=== PATIENT | male | born 1945 | race Caucasian/White ===

== ENCOUNTER 2018-04-17 11:42 | Inpatient (IN) | payer OTHER ==
[~2018-04-17] VITALS: Ht 170.2 cm; Wt 119.6 kg
--- NOTE | 2018-04-17 12:23 | EMERGENCY ROOM VISIT NOTE ---
History Report prepared by Luis: Gato Bryant Under the Supervision of: Dr. Tk Miller M.D. First contact with patient: 12:03 Chief Complaint: OTHER COMPLAINT Stated Complaint: BOWEL INCONTINENCE AND DIARRHEA, R/O CVA History of Present Illness The patient is a 72 year old male with a past medical history of diabetes mellitus and schizoaffective disorder who presents to the ED with a cc of constant dizziness that started yesterday morning. The patient notes that he did not recognize the symptoms until his speech slowed and he had trouble finding words. He describes the dizziness as light headedness, but not room- spinning. The patient notes he takes 5mg of Aspirin daily. The guards that brought that patient here also notes that there is no outbreaks at the skilled nursing. Positive for diarrhea. Negative for numbness, tingling, musculoskeletal problems , abdominal pain, changes in diet, abx use, and missing any medications. Source of History: patient Onset: Yesterday morning Position: head (dizziness) Timing: constant Associated Symptoms: + diarrhea, No abdominal pain, No numbness Review of Systems See HPI for pertinent positives and negatives. A total of ten systems were reviewed and were otherwise negative. Past Medical & Surgical Medical Problems: (1) Diabetes (2) Diabetes mellitus (3) Dysarthria (4) NPH (normal pressure hydrocephalus) (5) Schizoaffective disorder Social History Smoking Status: Never Smoker Current/Historical Medications Scheduled Aspirin (Aspirin Ec), 81 MG PO QPM Atorvastatin (Lipitor), 40 MG PO QPM Calcium Carbonate-Vitamin D (Calcium + D), 2 TABS PO HS Levothyroxine Sodium (Levothyroxine Sodium), 50 MCG PO HS Metformin Hcl (Glucophage), 1,000 MG PO HS Mirtazapine (Remeron), 15 MG PO HS Risperidone (Risperdal), 2 MG PO HS Tamsulosin Hcl (Flomax), 0.4 MG PO HS Allergies Coded Allergies: No Known Allergies (Unverified , 04/17/18) Physical Exam Vital Signs Date Time Temp Pulse Resp B/P (MAP) Pulse Ox O2 Delivery O2 Flow Rate FiO2 04/17/18 14:00 87 18 119/83 93 Room Air 04/17/18 13:07 88 04/17/18 13:00 93 Room Air 04/17/18 11:45 36.6 97 18 146/108 93 Room Air Physical Exam GENERAL: Awake, alert, well-appearing, NAD, Obese and edentulous HENT: Normocephalic, atraumatic. EYES: Normal conjunctiva. Sclera non-icteric. PERRL. No anisocoria. NECK: Supple. No nuchal rigidity. FROM. RESPIRATORY: CTAB, no rhonchi, wheezing, crackles CARDIAC: RRR, no MRG ABDOMEN: Soft, NTND, BS+ MSK: No chest wall TTP, no LE edema NEURO: CN 2-12 intact, 5/5 upper and lower extremity strength, no dysmetria, no drift, good finger to nose, no sensory deficits. Finger count grossly normal. Questionable dysarthria, no saddle anesthesia. SKIN: No rash or jaundice noted. Medical Decision & Procedures ER Provider Diagnostic Interpretation: Radiology results as stated below per my review and radiologist interpretation: CHEST ONE VIEW PORTABLE CLINICAL HISTORY: 72 years-old Male presenting with EVALUATE WEAKNESS. TECHNIQUE: Portable upright AP view of the chest was obtained. COMPARISON: None. FINDINGS: Atherosclerosis of the aortic arch. Tortuosity of the descending thoracic aorta. Cardiac silhouette normal in size. No focal opacity. No large effusion or pneumothorax. Degenerative changes of the thoracic spine. Upper abdomen normal. IMPRESSION: 1. No acute cardiopulmonary disease. Electronically signed by: Jean Claude Matos M.D. 04/17/2018 1:18 PM Dictated Date/Time: 04/17/2018 1:17 PM HEAD WITHOUT CONTRAST (CT) CLINICAL HISTORY: 72 years-old Male presenting with EVALUATE WEAKNESS, bowel incontinence, clinical concern for stroke. TECHNIQUE: Multidetector CT imaging of the head was performed without the use of intravenous contrast. IV contrast: None. A dose lowering technique was used consistent with the principles of ALARA (as low as reasonably achievable). COMPARISON: 06/23/2014. CT DOSE (mGy.cm): The estimated cumulative dose is 772.45 mGycm. FINDINGS: Family Nurse Practitioner topogram: Unremarkable. Interval increase in ventricular prominence. There is relative proportional ventricular and sulcal prominence throughout with the exception of the vertex, where there is gyral crowding and sulcal effacement. This has slightly increased since 2013. The callosal angle is abnormally acute measuring 70 degrees (normal 100-120 degrees). Periventricular and subcortical white matter hypoattenuation, nonspecific but likely indicative of chronic small vessel ischemic change. No mass effect or midline shift. No hemorrhage or acute territorial infarct. No extra-axial fluid collection. Paranasal sinuses and mastoid air cells clear. Calvarium intact. IMPRESSION: 1. Findings suggest normal pressure hydrocephalus. This appearance has worsened since 2013. 2. Chronic small vessel ischemic change. 3. No other evidence of acute intracranial abnormality. Electronically signed by: Jean Claude Matos M.D. 04/17/2018 12:49 PM Dictated Date/Time: 04/17/2018 12:43 PM Laboratory Results 04/17/18 12:00 Red Blood Count 5.66, Mean Corpuscular Volume 85.3, Mean Corpuscular Hemoglobin 32.0, Mean Corpuscular Hemoglobin Concent 37.5, Mean Platelet Volume 10.9, Neutrophils (%) (Auto) 70.6, Lymphocytes (%) (Auto) 17.2, Monocytes (%) (Auto) 11.3, Eosinophils (%) (Auto) 0.5, Basophils (%) (Auto) 0.1, Neutrophils # (Auto ) 6.15, Lymphocytes # (Auto) 1.50, Monocytes # (Auto) 0.98, Eosinophils # (Auto ) 0.04, Basophils # (Auto) 0.01 04/17/18 12:00 Test 04/17/18 12:00 04/17/18 12:45 White Blood Count 8.71 K/uL (4.8-10.8) Red Blood Count 5.66 M/uL (4.7-6.1) Hemoglobin 18.1 g/dL (14.0-18.0) Hematocrit 48.3 % (42-52) Mean Corpuscular Volume 85.3 fL (80-100) Mean Corpuscular Hemoglobin 32.0 pg (25-34) Mean Corpuscular Hemoglobin Concent 37.5 g/dl (32-36) Platelet Count 126 K/uL (130-400) Mean Platelet Volume 10.9 fL (7.4-10.4) Neutrophils (%) (Auto) 70.6 % Lymphocytes (%) (Auto) 17.2 % Monocytes (%) (Auto) 11.3 % Eosinophils (%) (Auto) 0.5 % Basophils (%) (Auto) 0.1 % Neutrophils # (Auto) 6.15 K/uL (1.4-6.5) Lymphocytes # (Auto) 1.50 K/uL (1.2-3.4) Monocytes # (Auto) 0.98 K/uL (0.11-0.59) Eosinophils # (Auto) 0.04 K/uL (0-0.5) Basophils # (Auto) 0.01 K/uL (0-0.2) RDW Standard Deviation 42.1 fL (36.4-46.3) RDW Coefficient of Variation 13.5 % (11.5-14.5) Immature Granulocyte % (Auto) 0.3 % Immature Granulocyte # (Auto) 0.03 K/uL (0.00-0.02) Prothrombin Time 10.9 SECONDS (9.0-12.0) Prothromb Time International Ratio 1.0 (0.9-1.1) Activated Partial Thromboplast Time 28.2 SECONDS (21.0-31.0) Partial Thromboplastin Ratio 1.1 Anion Gap 11.0 mmol/L (3-11) Est Creatinine Clear Calc Drug Dose 70.4 ml/min Estimated GFR () 71.8 Estimated GFR (Non- 61.9 BUN/Creatinine Ratio 6.9 (10-20) Calcium Level 9.3 mg/dl (8.5-10.1) Magnesium Level 1.8 mg/dl (1.8-2.4) Total Bilirubin 1.1 mg/dl (0.2-1) Direct Bilirubin 0.3 mg/dl (0-0.2) Aspartate Amino Transf (AST/SGOT) 26 U/L (15-37) Alanine Aminotransferase (ALT/SGPT) 41 U/L (12-78) Alkaline Phosphatase 87 U/L (45-117) Troponin I < 0.015 ng/ml (0-0.045) Pro-B-Type Natriuretic Peptide 91 pg/ml (0-900) Total Protein 7.8 gm/dl (6.4-8.2) Albumin 3.8 gm/dl (3.4-5.0) Lipase 181 U/L (73-393) Thyroid Stimulating Hormone (TSH) 2.130 uIu/ml (0.300-4.500) Salicylates Level < 1.7 mg/dl (2.8-20) Acetaminophen Level < 2 ug/ml (10-30) Ethyl Alcohol mg/dL < 3.0 mg/dl (0-3) Laboratory results reviewed by me Medications Administered Medications (Trade) Dose Ordered Sig/Paulette Route Start Time Stop Time Status Last Admin Dose Admin Aspirin (Aspirin Chew) 324 mg NOW STAT PO 04/17/18 13:37 04/17/18 13:38 DC 04/17/18 13:59 324 MG ECG Per My Interpretation Indication: chest pain Rate (beats per minute): 90 Rhythm: normal sinus Findings: other (Normal axis and intervals, no STS changes, No TWI) ED Course 1214: The patient was evaluated in room C6. A complete history and physical exam was performed. 1341: Upon reexamination, the patient was resting in bed. I discussed the test results and treatment plan with him. The patient will be evaluated for further management by Laura Mark PA-C. Medical Decision Nursing notes reviewed. Ancillary studies and prior records reviewed. Differential diagnosis: Etiologies such as metabolic, infection, hypo/hyperglycemia, electrolyte abnormalities, cardiac sources, intracerebral event, toxicologic, neurologic, as well as others were entertained. Patient was seen and evaluated the bedside. Patient had been referred for dysarthria that had questionably resolved. The patient states that he has had some mild word finding difficulty and slurred speech. Patient is otherwise fairly well-appearing denies any focal numbness tingling or weakness otherwise. The patient denies any double vision. Patient has a nonfocal neurologic exam. The patient apparently has been having some bowel incontinence. He does relate that he is having loose stools. The patient has no saddle anesthesia and. No recent trauma. I do not believe the patient has any sort of spinal issue. Patient did have blood work completed, CT the brain. Patient's blood work fairly unremarkable. The patient was having some urinary retention's the patient did have a straight cath completed. The patient CT the brain does show questionable NPH which is apparently worsened since 2013. Again the patient denies any visual disturbances or headache. The patient denies any back pain. I believe this is more of an incidental worsening finding. I do not believe he requires an LP at this time. Given the patient's comorbidities risk factors as well as slurred speech I believe he would benefit from further evaluation and treatment especially given his poor follow-up as he is currently incarcerated. Patient was given a full dose aspirin and was admitted to the medicine service. Medication Reconcilliation Current Medication List: was personally reviewed by me Blood Pressure Screening Patient's blood pressure: Normal blood pressure Consults Time Called: [phone] Consulting Physician: Laura Cr PA-C Returned Call: [phone] Discussed the patient's case with Laura Cr . The patient will be evaluated for further treatment and disposition. Impression Primary Impression: TIA (transient ischemic attack) Additional Impression: Urinary retention Scribe Attestation The scribe's documentation has been prepared under my direction and personally reviewed by me in its entirety. I confirm that the note above accurately reflects all work, treatment, procedures, and medical decision making performed by me. Departure Information Dispostion Being Evaluated By Hospitalist Referrals No Doctor, Assigned (PCP) Forms HOME CARE DOCUMENTATION FORM, IMPORTANT VISIT INFORMATION, WORK / SCHOOL INSTRUCTIONS Patient Instructions My [facility] Health Problem Qualifiers
[2018-04-17 12:31] LABS: BASO % 0.1 %; BASO ABS # 0.01 K/uL (0-0.2); EOS % 0.5 %; EOS ABS # 0.04 K/uL (0-0.5); HEMATOCRIT 48.3 % (42-52); HEMOGLOBIN 18.1 g/dL (14.0-18.0); IG# 0.03 K/uL (0.00-0.02); LYMPH % 17.2 %; MEAN CELL VOLUME 85.3 fL (80-100); MEAN CORPUSCULAR HGB CONC 37.5 g/dl (32-36); MEAN PLATELET VOLUME 10.9 fL (7.4-10.4); MONO % 11.3 %; MONO ABS # 0.98 K/uL (0.11-0.59); NEUT % 70.6 %; NEUT ABS # 6.15 K/uL (1.4-6.5); PLATELET COUNT 126 K/uL (130-400); RED CELL DISTRIBUTION WIDTH CV 13.5 % (11.5-14.5); RED CELL DISTRIBUTION WIDTH SD 42.1 fL (36.4-46.3); WHITE BLOOD COUNT 8.71 K/uL (4.8-10.8)
[2018-04-17 12:42] LABS: PTT PATIENT 28.2 SECONDS (21.0-31.0)
[2018-04-17 12:47] LABS: ALBUMIN 3.8 gm/dl (3.4-5.0); ALKALINE PHOSPHATASE 87 U/L (45-117); ALT/SGPT 41 U/L (12-78); AST/SGOT 26 U/L (15-37); BLOOD UREA NITROGEN 8 mg/dl (7-18); CALCIUM 9.3 mg/dl (8.5-10.1); CARBON DIOXIDE 21 mmol/L (21-32); CREATININE 1.17 mg/dl (0.60-1.40); GLUCOSE 261 mg/dl (70-99); LIPASE 181 U/L (73-393); POTASSIUM 3.5 mmol/L (3.5-5.1); SODIUM 133 mmol/L (136-145); TOTAL PROTEIN 7.8 gm/dl (6.4-8.2)
--- NOTE | 2018-04-17 12:50 | DIAGNOSTIC IMAGING REPORT ---
HEAD WITHOUT CONTRAST (CT) CLINICAL HISTORY: 72 years-old Male presenting with EVALUATE WEAKNESS, bowel incontinence, clinical concern for stroke. TECHNIQUE: Multidetector CT imaging of the head was performed without the use of intravenous contrast. IV contrast: None. A dose lowering technique was used consistent with the principles of ALARA (as low as reasonably achievable). COMPARISON: 06/23/2014. CT DOSE (mGy.cm): The estimated cumulative dose is 772.45 mGycm. FINDINGS: Interlocking Installer topogram: Unremarkable. Interval increase in ventricular prominence. There is relative proportional ventricular and sulcal prominence throughout with the exception of the vertex, where there is gyral crowding and sulcal effacement. This has slightly increased since 2013. The callosal angle is abnormally acute measuring 70 degrees (normal 100-120 degrees). Periventricular and subcortical white matter hypoattenuation, nonspecific but likely indicative of chronic small vessel ischemic change. No mass effect or midline shift. No hemorrhage or acute territorial infarct. No extra-axial fluid collection. Paranasal sinuses and mastoid air cells clear. Calvarium intact. IMPRESSION: 1. Findings suggest normal pressure hydrocephalus. This appearance has worsened since 2013. 2. Chronic small vessel ischemic change. 3. No other evidence of acute intracranial abnormality. Electronically signed by: Jean Claude Matos M.D. 04/17/2018 12:49 PM Dictated Date/Time: 04/17/2018 12:43 PM
--- NOTE | 2018-04-17 13:19 | DIAGNOSTIC IMAGING REPORT ---
CHEST ONE VIEW PORTABLE CLINICAL HISTORY: 72 years-old Male presenting with EVALUATE WEAKNESS. TECHNIQUE: Portable upright AP view of the chest was obtained. COMPARISON: None. FINDINGS: Atherosclerosis of the aortic arch. Tortuosity of the descending thoracic aorta. Cardiac silhouette normal in size. No focal opacity. No large effusion or pneumothorax. Degenerative changes of the thoracic spine. Upper abdomen normal. IMPRESSION: 1. No acute cardiopulmonary disease. Electronically signed by: Jean Claude Matos M.D. 04/17/2018 1:18 PM Dictated Date/Time: 04/17/2018 1:17 PM
[2018-04-17] MEDS ORDERED: ASPIRIN 324 MG CHEW PO STA (13:37)
[2018-04-17] MEDS ORDERED: ASPI81TA28 PO (14:29)
[2018-04-17] MEDS ORDERED: METF-384 PO (14:29)
[2018-04-17] MEDS ORDERED: CALC600T9 PO (14:29)
[2018-04-17] MEDS ORDERED: LEVO50TA6 PO (14:29)
[2018-04-17] MEDS ORDERED: ATOR-24 PO (14:29)
[2018-04-17] MEDS ORDERED: RISP2TAB22 PO (14:29)
[2018-04-17] MEDS ORDERED: MIRT15TA3 PO (14:29)
[2018-04-17] MEDS ORDERED: TAMS0.4C38 PO (14:29)
--- NOTE | 2018-04-17 15:09 | History and Physical ---
History & Physical Date & Time of Service: Apr 17, 2018 at 14:59 Chief Complaint: Bowel Incontinence And Diarrhea, R/O Cva Primary Care Physician: No Doctor, Assigned History of Present Illness Source: patient Is a 72-year-old male with significant past medical history of diabetes and hypothyroidism apparently was brought in from [facility] with a history of dizziness and dysarthria that happened yesterday. Initially he complains to have diarrhea for the last 2 days without any other symptoms. When asking question he mentioned that he did have some dizziness and dysarthria which lasted for half an hour yesterday and he was brought in to the emergency room today to rule out any stroke. He denies any symptoms except dysarthria which has resolved, denies any visual problem, any headache or pain in the neck, any numbness or tingling in the extremities, any weakness in any parts of the body and any facial asymmetry. He complains to have ongoing diarrhea for the last 2 days that he is already about but denies any incontinence of urine or any frequency and/or burning pain. No chest pain shortness of breath or palpitation and denies any abdominal pain nausea and/or vomiting. In the ER his blood work came out to be unremarkable but he has noted to have normal pressure hydrocephalus on CAT scan from that point he was admitted to telemetry unit. Past Medical/Surgical History Medical Problems: (1) Diabetes (2) Diabetes mellitus (3) Dysarthria (4) NPH (normal pressure hydrocephalus) (5) Schizoaffective disorder (6) Suicide attempt by hanging (7) Suicide attempt by hanging Social History Smoking Status: Never Smoker Smokeless Tobacco Use: No Alcohol Use: none Drug Use: none Housing status: other (Lives in [facility]) Allergies Coded Allergies: No Known Allergies (Unverified , 04/17/18) Home Medications Scheduled Aspirin (Aspirin Ec), 81 MG PO QPM Atorvastatin (Lipitor), 40 MG PO QPM Calcium Carbonate-Vitamin D (Calcium + D), 2 TABS PO HS Levothyroxine Sodium (Levothyroxine Sodium), 50 MCG PO HS Metformin Hcl (Glucophage), 1,000 MG PO HS Mirtazapine (Remeron), 15 MG PO HS Risperidone (Risperdal), 2 MG PO HS Tamsulosin Hcl (Flomax), 0.4 MG PO HS Review of Systems Constitutional: + problem reported (Dizziness and Dysarthria) Neurologic: + problem reported (Dizziness and Dysarthria) Psychiatric: + anxiety Physical Exam Vital Signs Date Time Temp Pulse Resp B/P (MAP) Pulse Ox O2 Delivery O2 Flow Rate FiO2 04/17/18 14:00 87 18 119/83 93 Room Air 04/17/18 13:07 88 04/17/18 13:00 93 Room Air 04/17/18 11:45 36.6 97 18 146/108 93 Room Air General Appearance: no apparent distress Head: normocephalic Eyes: normal inspection ENT: normal ENT inspection Neck: supple, no adenopathy, thyroid normal, no carotid bruits Respiratory/Chest: chest non-tender, lungs clear, normal breath sounds, no respiratory distress Cardiovascular: regular rate, rhythm, no edema, no gallop, no murmur Abdomen/GI: normal bowel sounds Back: normal inspection Extremities/Musculoskelatal: normal inspection Neurologic/Psych: atmospheric technician II-XII nml as tested, no motor/sensory deficits, alert, normal mood/affect, normal reflexes, oriented x 3 Skin: normal color Diagnostics Laboratory Results Results Past 24 Hours Test 04/17/18 12:00 04/17/18 12:45 Range/Units White Blood Count 8.71 4.8-10.8 K/uL Red Blood Count 5.66 4.7-6.1 M/uL Hemoglobin 18.1 14.0-18.0 g/dL Hematocrit 48.3 42-52 % Mean Corpuscular Volume 85.3 80-100 fL Mean Corpuscular Hemoglobin 32.0 25-34 pg Mean Corpuscular Hemoglobin Concent 37.5 32-36 g/dl Platelet Count 126 130-400 K/uL Mean Platelet Volume 10.9 7.4-10.4 fL Neutrophils (%) (Auto) 70.6 % Lymphocytes (%) (Auto) 17.2 % Monocytes (%) (Auto) 11.3 % Eosinophils (%) (Auto) 0.5 % Basophils (%) (Auto) 0.1 % Neutrophils # (Auto) 6.15 1.4-6.5 K/uL Lymphocytes # (Auto) 1.50 1.2-3.4 K/uL Monocytes # (Auto) 0.98 0.11-0.59 K/uL Eosinophils # (Auto) 0.04 0-0.5 K/uL Basophils # (Auto) 0.01 0-0.2 K/uL RDW Standard Deviation 42.1 36.4-46.3 fL RDW Coefficient of Variation 13.5 11.5-14.5 % Immature Granulocyte % (Auto) 0.3 % Immature Granulocyte # (Auto) 0.03 0.00-0.02 K/uL Prothrombin Time 10.9 9.0-12.0 SECONDS Prothromb Time International Ratio 1.0 0.9-1.1 Activated Partial Thromboplast Time 28.2 21.0-31.0 SECONDS Partial Thromboplastin Ratio 1.1 Sodium Level 133 136-145 mmol/L Potassium Level 3.5 3.5-5.1 mmol/L Chloride Level 100 98-107 mmol/L Carbon Dioxide Level 21 21-32 mmol/L Anion Gap 11.0 3-11 mmol/L Blood Urea Nitrogen 8 7-18 mg/dl Creatinine 1.17 0.60-1.40 mg/dl Est Creatinine Clear Calc Drug Dose 70.4 ml/min Estimated GFR () 71.8 Estimated GFR (Non- 61.9 BUN/Creatinine Ratio 6.9 10-20 Random Glucose 261 70-99 mg/dl Calcium Level 9.3 8.5-10.1 mg/dl Magnesium Level 1.8 1.8-2.4 mg/dl Total Bilirubin 1.1 0.2-1 mg/dl Direct Bilirubin 0.3 0-0.2 mg/dl Aspartate Amino Transf (AST/SGOT) 26 15-37 U/L Alanine Aminotransferase (ALT/SGPT) 41 12-78 U/L Alkaline Phosphatase 87 45-117 U/L Troponin I < 0.015 0-0.045 ng/ml Pro-B-Type Natriuretic Peptide 91 0-900 pg/ml Total Protein 7.8 6.4-8.2 gm/dl Albumin 3.8 3.4-5.0 gm/dl Lipase 181 73-393 U/L Thyroid Stimulating Hormone (TSH) 2.130 0.300-4.500 uIu/ml Salicylates Level < 1.7 2.8-20 mg/dl Acetaminophen Level < 2 10-30 ug/ml Ethyl Alcohol mg/dL < 3.0 0-3 mg/dl Diagnostic Radiology CT of the Head-NPH worsening Impression Assessment and Plan Dysarthria with dizziness-Resolved Likely secondary to TIA We will get 10 MRI of the brain combo, CTA, echo and carotid Will admit in telemetry unit Neuro-observation Normal pressure hydrocephalus As per the CAT scan it is worsening we will ask for a neurology evaluation Acute diarrhea Check for stool C. difficile and culture Can have Imodium if those are negative We will give some IV fluid with electrolytes Diabetes on oral medication Hold metformin right now We will put him on sliding scale insulin coverage Check hemoglobin A1c Schizoaffective disorder No acute symptoms We will continue prior medications DVT prophylaxis Subcu heparin CODE STATUS:; Full In my clinical judgment the beneficially meets criteria as per CMS for 2 midnight stay in the hospital Resuscitation Status VTE Prophylaxis Will order VTE Prophylaxis: Yes
[2018-04-17] MEDS ORDERED: OPTIRAY 320 IV PRN (15:45)
[2018-04-17 16:24] VITALS: BP 139/106; PULSE 84; TEMP 37.3; O2SAT 97; Ht 170.2 cm; Wt 119.6 kg
[2018-04-17] MEDS ORDERED: GADAVIST IV PRN (18:30)
--- NOTE | 2018-04-17 18:53 | DIAGNOSTIC IMAGING REPORT ---
CT ANGIOGRAM OF THE BRAIN; CT ANGIOGRAM OF THE NECK CLINICAL HISTORY: Weakness. Stroke like symptoms. COMPARISON STUDY: Unenhanced CT of the brain dated 04/17/2018. CT angiogram of the neck dated 06/23/2014. TECHNIQUE: Following the IV administration of 94 of Optiray 320, CT angiogram of the head and neck was performed from the aortic arch to the vertex. Images are reviewed in the axial, sagittal, and coronal planes. 3-D MIPS images are created and assessed. IV contrast was administered without complication. All measurements were calculated based on NASCET criteria. A dose lowering technique was utilized adhering to the principles of ALARA. CT DOSE: 630.95 mGy.cm FINDINGS: Brain parenchyma: There are age-related involutional changes noting mild subcortical and periventricular microangiopathic disease. There is no hemorrhage, mass effect, or evidence of acute territorial ischemia by CT criteria. There is no evidence of enhancing mass lesion on the angiogram phase images. The ventricles, sulci, and cisterns are prominent secondary to involutional change. Herman-white matter differentiation is preserved. No extra-axial fluid collection is seen. Thoracic aorta: There is mild atherosclerotic calcification of the thoracic aorta. Visualized portions of the thoracic aorta are normal in caliber. The aortic arch demonstrates standard 3-vessel anatomy. Right carotid arterial system: The right common carotid artery is widely patent, as are the right internal and external carotid arteries. Atherosclerotic calcification is noted in the carotid bulb. Left carotid arterial system: The left common carotid artery is widely patent, as are the left internal and external carotid arteries. Atherosclerotic calcification is noted in the carotid bulb. Vertebral arteries: The vertebral arteries are widely patent. The right vertebral artery is dominant. Subclavian arteries: Widely patent bilaterally. Intracranial vasculature: There is atherosclerotic calcification of the cavernous carotid arteries. There is a large right posterior communicating artery. The internal carotid arteries are patent at the skull base, as are the anterior and middle cerebral arteries bilaterally. The vertebrobasilar system and posterior cerebral arteries are widely patent. The right vertebral artery is dominant. There is no aneurysm, high-grade stenosis, or focal vessel cut off seen throughout the intracranial circulation. Jugular veins: Widely patent bilaterally. Dural sinuses: Patent. Lung apices: Partially visualized upper lobe lung parenchyma appears clear. Soft tissues: The visualized pharyngeal soft tissues are normal in appearance noting angiographic phase technique. The oropharyngeal airway appears widely patent. The salivary and thyroid glands are normal in appearance. No cervical lymphadenopathy is seen. Skeletal structures: The skeletal structures are osteopenic. The calvarium appears maintained. The cervical spine appears intact noting multilevel spondylosis. Sinuses and mastoids: Trace mucosal thickening is seen in the maxillary antra. The remaining paranasal sinuses are clear. The mastoid air cells are well pneumatized. IMPRESSION: 1. There is no hemorrhage, mass effect, or evidence of acute territorial ischemia by CT criteria. 2. Unremarkable CT angiogram of the brain. 3. Unremarkable CT angiogram of the neck. Electronically signed by: Cody Hernandez M.D. 04/17/2018 6:52 PM Dictated Date/Time: 04/17/2018 6:42 PM
--- NOTE | 2018-04-17 19:20 | DIAGNOSTIC IMAGING REPORT ---
MRI OF THE BRAIN WITHOUT AND WITH IV CONTRAST CLINICAL HISTORY: Slurred speech. Weakness. Evaluate for stroke. COMPARISON STUDY: Head CT April 17, 2018. TECHNIQUE: Utilizing a 1.5 Alexandra magnet and dedicated coil, multiplanar, multiecho imaging of the brain was performed pre and postcontrast administration. IV administration of 11.5 mL of Gadavist contrast was uneventful. FINDINGS: There are no foci of restricted diffusion to suggest acute infarct. No acute intracranial hemorrhage, midline shift or mass effect is present. Moderate atrophy is noted. This accounts for ventricular dilatation. The basilar cisterns are patent. There are no extra-axial collections. Flow-voids for the major intracranial vessels are present. No intracranial mass or pathologic enhancement. White matter T2 hyperintense foci suggest moderate small vessel disease. Calvarial signal is maintained. Orbits and sinuses are unremarkable. IMPRESSION: 1. No acute intracranial findings. 2. No intracranial mass or pathologic enhancement. 3. Moderate atrophy and small vessel disease. Electronically signed by: Matt Thacker M.D. 04/17/2018 7:19 PM Dictated Date/Time: 04/17/2018 7:02 PM
[2018-04-17] MEDS: NSS + 20MEQ KCL 1000ML 1,000 ML IV SCH (19:43)
[2018-04-17] MEDS ORDERED: PNEUMOCOCCAL ADMINISTRATION CHARGE ONE (19:45)
[2018-04-17] MEDS: TAMSULOSIN HCL 0.4 MG CAP PO SCH (19:45)
[2018-04-17] MEDS: CALCIUM 600MG + VIT D 400 IU TAB PO SCH (19:45)
[2018-04-17] MEDS ORDERED: PNEUMOCOCCAL POLYSACCHARIDES 25 MCG/0.5 ML VIAL/SYR IM. ONE (19:45)
[2018-04-17] MEDS: MIRTAZAPINE TAB 15 MG TAB PO SCH (19:46)
[2018-04-17] MEDS: ATORVASTATIN 40 MG TAB PO SCH (19:46)
[2018-04-17] MEDS: RISPERIDONE 2 MG TAB PO SCH (19:46)
[2018-04-17 20:00] VITALS: O2SAT 97
[2018-04-17 21:04] VITALS: BP 162/75; PULSE 61; TEMP 37.1; O2SAT 93
[2018-04-17] MEDS: HEPARIN SOD 5000 UNIT/0.5 ML CARP SQ SCH (22:15)
[2018-04-18] MEDS ORDERED: LOPERAMIDE HCL 2 MG CAP PO STA (00:26)
[2018-04-18] MEDS ORDERED: LOPERAMIDE HCL 2 MG CAP PO PRN ×2 (00:30→10:00)
[2018-04-18 03:46] VITALS: BP 122/94; PULSE 101; TEMP 37.4; O2SAT 99
[2018-04-18] MEDS: NSS + 20MEQ KCL 1000ML 1,000 ML IV SCH ×2 (05:00→15:03)
[2018-04-18] MEDS: LEVOTHYROXINE 50 MCG TAB PO SCH (05:00)
[2018-04-18] MEDS: HEPARIN SOD 5000 UNIT/0.5 ML CARP SQ SCH ×3 (05:01→20:59)
[2018-04-18 05:57] LABS: BASO % 0.1 %; BASO ABS # 0.01 K/uL (0-0.2); EOS % 0.3 %; EOS ABS # 0.02 K/uL (0-0.5); HEMATOCRIT 45.2 % (42-52); HEMOGLOBIN 16.1 g/dL (14.0-18.0); IG# 0.02 K/uL (0.00-0.02); LYMPH % 16.8 %; MEAN CELL VOLUME 85.8 fL (80-100); MEAN CORPUSCULAR HEMOGLOBIN 30.6 pg (25-34); MEAN CORPUSCULAR HGB CONC 35.6 g/dl (32-36); MEAN PLATELET VOLUME 10.8 fL (7.4-10.4); MONO % 13.3 %; MONO ABS # 0.95 K/uL (0.11-0.59); NEUT % 69.2 %; NEUT ABS # 4.95 K/uL (1.4-6.5); PLATELET COUNT 113 K/uL (130-400); RED CELL DISTRIBUTION WIDTH CV 13.5 % (11.5-14.5); RED CELL DISTRIBUTION WIDTH SD 42.1 fL (36.4-46.3); WHITE BLOOD COUNT 7.15 K/uL (4.8-10.8)
[2018-04-18 06:25] LABS: CALCIUM 9.2 mg/dl (8.5-10.1); CREATININE 1.1 mg/dl (0.60-1.40); POTASSIUM 3.6 mmol/L (3.5-5.1)
[2018-04-18 08:00] VITALS: BP 135/80; PULSE 95; TEMP 37.2; O2SAT 92
[2018-04-18 11:33] VITALS: BP 131/74; PULSE 82; TEMP 36.8; O2SAT 90
--- NOTE | 2018-04-18 12:01 | ECHOCARDIOGRAM REPORT ---
*NOTICE TO RECEIVING REPUBLICAN AGENCY This information is strictly Confidential and protected under [place] law. [place] law prohibits you from making any further disclosure of this information unless further disclosure is expressly permitted by the written consent of the person to whom it pertains or is authorized by law. A general authorization for the release of medical or other information is not sufficient for this purpose. Hospital accepts no responsibility if the information is made available to any other person, INCLUDING THE PATIENT. Interpretation Summary * Name: MALACHI FREY [id number] Study Date: 04/18/2018 09:46 AM BP: 122/94 mmHg * Patient Location: C.2E\S\E207\S\1 HR: 101 * : 1945 (M/d/y) Gender: Male Height: 67 in * Age: 72 yrs Ethnicity: CA Weight: 262 lb * Ordering Physician: Moni Lees * Referring Physician: No Doctor, Assigned * Performed By: Mayte Greene RDCS * * Reason For Study: Syncope * BSA: 2.3 m2 * -- Conclusions -- * The left ventricle is normal in size. * There is borderline concentric left ventricular hypertrophy. * The left ventricular wall motion is normal. * Left ventricular systolic function is normal. * Ejection Fraction = 60-65%. * Grade I diastolic dysfunction, (abnormal relaxation pattern). * There is mild to moderate calcification aortic valve leaflets without stenosis * Trace aortic regurgitation. * Borderline aortic root dilatation. Procedure Details * A complete two-dimensional transthoracic echocardiogram was performed (2D, M-mode, Doppler and color flow Doppler). * A contrast injection of Definity was performed to improve assessment of LV function. * Contrast was injected into an intravenous site in the right arm. * One vial of Definity ultrasound contrast was diluted in normal saline to a total volume of 10 ml. A total of '1' ml of solution was administered during imaging. * Lot # [id number] of Definity utilized for procedure. * Expiration date MAR 26. * The attending nurse who injected the contrast agent was Benjamin Wilson RN. Left Ventricle * The left ventricle is normal in size. * There is borderline concentric left ventricular hypertrophy. * The basal septum is thickened and angulated consistent with sigmoid septum. * Ejection Fraction = 60-65%. * Left ventricular systolic function is normal. * The left ventricular wall motion is normal. Right Ventricle * The right ventricle is normal in size and function. Atria * The left atrial size is normal. * Right atrial size is normal. * No ASD detected; PFO is not assessed. Mitral Valve * The mitral valve is grossly normal. * There is no mitral valve stenosis. * There is trace mitral regurgitation. Tricuspid Valve * The tricuspid valve is not well visualized, but is grossly normal. * There is no tricuspid stenosis. * There is trace tricuspid regurgitation. Aortic Valve * The aortic valve is trileaflet. * There is mild to moderate calcification aortic valve leaflets without stenosis * Trace aortic regurgitation. Pulmonic Valve * The pulmonic valve is not well visualized. Great Vessels * Borderline aortic root dilatation. Pericardium/Pleural * There is no pericardial effusion. Great Vessels * Normal inferior vena cava diameter and respiratory variation suggests normal central venous pressure. Left Ventricular Diastolic Function * Grade I diastolic dysfunction, (abnormal relaxation pattern). MMode 2D Measurements and Calculations IVSd 0.92 cm LVIDd 3.5 cm LVIDs 2.3 cm LVPWd 1.1 cm IVS/LVPW 0.80 FS 33.4 % EDV(Teich) 51.1 ml ESV(Teich) 18.9 ml EF(Teich) 63.1 % EDV(cubed) 43.2 ml ESV(cubed) 12.8 ml EF(cubed) 70.4 % LV mass(C)d 108.8 grams LV mass(C)dI 48.0 grams/m\S\2 SV(Teich) 32.3 ml SI(Teich) 14.2 ml/m\S\2 SV(cubed) 30.4 ml SI(cubed) 13.4 ml/m\S\2 Ao root diam 3.9 cm Ao root area 12.2 cm\S\2 ACS 2.1 cm LA dimension 3.1 cm asc Aorta Diam 3.3 cm LA/Ao 0.78 LVOT diam 2.0 cm LVOT area 3.2 cm\S\2 LVAd ap4 23.8 cm\S\2 LVLd ap4 7.1 cm EDV(MOD-sp4) 63.9 ml EDV(sp4-el) 67.4 ml LVAs ap4 12.8 cm\S\2 LVLs ap4 5.5 cm ESV(MOD-sp4) 24.1 ml ESV(sp4-el) 25.4 ml EF(MOD-sp4) 62.4 % EF(sp4-el) 62.3 % LVAd ap2 24.9 cm\S\2 LVLd ap2 7.6 cm EDV(MOD-sp2) 66.4 ml EDV(sp2-el) 69.8 ml LVAs ap2 12.8 cm\S\2 LVLs ap2 5.8 cm ESV(MOD-sp2) 25.2 ml ESV(sp2-el) 24.2 ml EF(MOD-sp2) 62.1 % EF(sp2-el) 65.3 % LVLd %diff 6.0 % EDV(MOD-bp) 66.0 ml LVLs %diff 5.3 % ESV(MOD-bp) 24.8 ml EF(MOD-bp) 62.5 % SV(MOD-sp4) 39.9 ml SI(MOD-sp4) 17.6 ml/m\S\2 SV(MOD-sp2) 41.2 ml SI(MOD-sp2) 18.2 ml/m\S\2 SV(MOD-bp) 41.2 ml SI(MOD-bp) 18.2 ml/m\S\2 SV(sp4-el) 42.0 ml SI(sp4-el) 18.5 ml/m\S\2 SV(sp2-el) 45.6 ml SI(sp2-el) 20.1 ml/m\S\2 Doppler Measurements and Calculations MV E max jaylen 55.3 cm/sec MV A max jaylen 77.0 cm/sec MV E/A 0.72 MV dec time 0.27 sec Ao V2 max 171.8 cm/sec Ao max PG 11.8 mmHg Ao max PG (full) 7.3 mmHg YA(V,A) 2.0 cm\S\2 YA(V,D) 2.0 cm\S\2 AI max jaylen 321.3 cm/sec AI max PG 41.3 mmHg AI dec slope 226.0 cm/sec\S\2 AI P1/2t 416.5 msec LV V1 max PG 4.5 mmHg LV V1 max 106.3 cm/sec PA V2 max 87.1 cm/sec PA max PG 3.0 mmHg PA acc slope 352.8 cm/sec\S\2 PA acc time 0.16 sec PI max jaylen 132.0 cm/sec PI max PG 7.0 mmHg PI dec slope 91.3 cm/sec\S\2 PI P1/2t 423.6 msec TR max jaylen 129.4 cm/sec PA pr(Accel) 8.2 mmHg
--- NOTE | 2018-04-18 12:14 | Progress Note ---
Internal Med Progress Note Date of Service: Apr 18, 2018. Provider Documentation: SUBJECTIVE: The patient was seen and examined in telemetry unit Was admitted yesterday with the symptoms of dysarthria and dizziness that happened day before yesterday No neuro deficit on admission and so far no imaging studies that is positive for any stroke Complains of diarrhea but no other symptoms OBJECTIVE: Vital Signs-as noted below Exam: General-no apparent distress Eyes-normal ENT-normal Neck-supple Lungs-clear to auscultate bilaterally Heart-regular, no murmur Abdomen-benign, minimally distended, soft, nontender Extremities-trace edema bilaterally Neuro-alert, awake and oriented 3 No focal sensory and motor deficit appreciated Lab data as noted below. ASSESSMENT & PLAN: Dysarthria with dizziness-Resolved Likely secondary to TIA We will get 10 MRI of the brain combo, CTA, echo and carotid Will admit in telemetry unit Neuro-observation MRI combo of the head, CTA of the head and neck and echocardiogram unremarkable No recurrence of the symptoms and no neuro deficit on examination Awake neurologist input Normal pressure hydrocephalus As per the CAT scan it is worsening we will ask for a neurology evaluation-awaiting Acute diarrhea Check for stool C. difficile and culture Can have Imodium if those are negative We will give some IV fluid with electrolytes Stool tests are negative for any C. difficile, culture pending We will start Imodium as needed Diabetes on oral medication Hold metformin right now We will put him on sliding scale insulin coverage Check hemoglobin [id number] at 10 Schizoaffective disorder No acute symptoms We will continue prior medications DVT prophylaxis Subcu heparin CODE STATUS:; Full DISPOSITION Likely discharge in a day or 2 Vital Signs: Date Time Temp Pulse Resp B/P (MAP) Pulse Ox O2 Delivery O2 Flow Rate FiO2 04/18/18 11:33 36.8 82 20 131/74 (93) 90 Room Air 04/18/18 08:00 37.2 95 20 135/80 (98) 92 Room Air 04/18/18 08:00 Room Air 04/18/18 03:46 37.4 101 18 122/94 (103) 99 Room Air 04/17/18 21:04 37.1 61 18 162/75 (104) 93 Room Air 04/17/18 20:00 97 Room Air 04/17/18 16:24 37.3 84 16 139/106 97 Room Air 04/17/18 16:02 88 19 128/88 94 04/17/18 14:00 87 18 119/83 93 Room Air 04/17/18 13:07 88 04/17/18 13:00 93 Room Air Lab Results: Results Past 24 Hours Test 04/17/18 12:45 04/17/18 16:24 04/17/18 20:40 04/18/18 05:41 Range/Units Ethyl Alcohol mg/dL < 3.0 0-3 mg/dl Bedside Glucose 206 215 70-99 mg/dl White Blood Count 7.15 4.8-10.8 K/uL Red Blood Count 5.27 4.7-6.1 M/uL Hemoglobin 16.1 14.0-18.0 g/dL Hematocrit 45.2 42-52 % Mean Corpuscular Volume 85.8 80-100 fL Mean Corpuscular Hemoglobin 30.6 25-34 pg Mean Corpuscular Hemoglobin Concent 35.6 32-36 g/dl Platelet Count 113 130-400 K/uL Mean Platelet Volume 10.8 7.4-10.4 fL Neutrophils (%) (Auto) 69.2 % Lymphocytes (%) (Auto) 16.8 % Monocytes (%) (Auto) 13.3 % Eosinophils (%) (Auto) 0.3 % Basophils (%) (Auto) 0.1 % Neutrophils # (Auto) 4.95 1.4-6.5 K/uL Lymphocytes # (Auto) 1.20 1.2-3.4 K/uL Monocytes # (Auto) 0.95 0.11-0.59 K/uL Eosinophils # (Auto) 0.02 0-0.5 K/uL Basophils # (Auto) 0.01 0-0.2 K/uL RDW Standard Deviation 42.1 36.4-46.3 fL RDW Coefficient of Variation 13.5 11.5-14.5 % Immature Granulocyte % (Auto) 0.3 % Immature Granulocyte # (Auto) 0.02 0.00-0.02 K/uL Sodium Level 134 136-145 mmol/L Potassium Level 3.6 3.5-5.1 mmol/L Chloride Level 101 98-107 mmol/L Carbon Dioxide Level 25 21-32 mmol/L Anion Gap 8.0 3-11 mmol/L Blood Urea Nitrogen 8 7-18 mg/dl Creatinine 1.10 0.60-1.40 mg/dl Est Creatinine Clear Calc Drug Dose 74.6 ml/min Estimated GFR () 77.3 Estimated GFR (Non- 66.7 BUN/Creatinine Ratio 7.3 10-20 Random Glucose 204 70-99 mg/dl Estimated Average Glucose 240 mg/dl Hemoglobin A1c 10.0 4.5-5.6 % Calcium Level 9.2 8.5-10.1 mg/dl Vitamin B12 Level 256 211-911 pg/mL Folate 12.98 >5.38 ng/mL Test 04/18/18 07:30 04/18/18 11:24 Range/Units Bedside Glucose 235 220 70-99 mg/dl Microbiology Results 04/17/18 C.difficile Toxin B Gene (PCR) - Final, Complete No C. difficile toxin B gene detected 04/17/18 Shiga Toxin Test, Received Pending 04/17/18 Stool Culture, Received Pending
[2018-04-18 15:52] VITALS: BP 143/79; PULSE 80; TEMP 37.1; O2SAT 93
--- NOTE | 2018-04-18 17:23 | PROGRESS NOTE ---
DATE: 04/18/2018 CONSULTATION FOR: Dr. Lees. HISTORY OF PRESENT ILLNESS: Ion is a 72 years old, is an inmate at [facility] and has been there for over 10 years. He has a long history of diabetes, hypothyroidism, schizoaffective disorder, has had a suicide attempt by hanging in the past and was admitted for evaluation of an event that happened actually 2 days ago during which he, after an episode of diarrhea for 2 days, developed some vague lightheadedness, dysequilibrium and problems with word finding, which lasted about half an hour and he was then brought into the Emergency Room yesterday for assessment regarding a possible stroke given those symptoms had cleared. According to him, he was slightly vertiginous, had some problems with walking, knew what he wanted to say, but could not formulate the words and denies any actual slurring of his speech, but did admit that his gait was a little sloppy at this time. He denied any headaches, numbness, tingling, visual disturbances, nausea, vomiting true vertigo, hearing loss, tinnitus, etc. PAST MEDICAL HISTORY: Reveals diabetes, the schizoaffective disorder, suicide attempt by hanging. HOME MEDICATIONS: Included aspirin, atorvastatin, calcium carbonate, levothyroxine, metformin, Remeron, Risperdal, and tamsulosin. ALLERGIES: He has allergies to no medications. SOCIAL HISTORY: Reveals him to be an inmate. He does not consume ethanol or tobacco. FAMILY HISTORY: Noncontributory. REVIEW OF SYSTEMS: Reveals no systemic illnesses other than the 2 days of diarrhea without particular fever and the current illness with the transient episode of word finding, vertigo, gait abnormality and perhaps some slurring of his speech, although he denies it. At baseline, he claims he has definitely no trouble walking. He does not have trouble with urinary incontinence. He does not think he has any cognitive impairment and he denies any significant issues referable to head, eyes, ears, nose and throat, cardiovascular, pulmonary, gastrointestinal, genitourinary, neurologic, dermatologic, endocrinologic, hematologic systems. He also denies that he has diabetes which is clearly on the record so some of his denials need to be viewed with someone with some degree of suspicion. PHYSICAL EXAMINATION: VITAL SIGNS: Blood pressure was 119/83, pulse was 87, and respirations 18. GENERAL: He looked moderately over-nourished, he appeared to be in no distress. His speech was clear. HEENT: Examination is recorded as normal. There were no carotid bruits. LUNGS: Clear. HEART: Had a regular rhythm. No murmurs were appreciated. ABDOMEN: Soft, nontender. EXTREMITIES: Free of edema. He has good peripheral pulses. NEUROLOGIC: Today neurologically he is awake, alert, oriented, is probably a little vague as a historian in light of some of the above contradictions regarding his concept, so whether he has diabetes or not, but having been said, his speech is clear. Eye movements are normal. Facial motility and strength is normal. There is no loss of facial sensation. I do not see any nystagmus. He denies any hearing loss. There is no cerebellar dysmetria on rkwlvh-[id number], abkiv-qk-kmqck or dwzh-eg-hdhy testing. He can get up and walk in the room without any apraxia, ataxia, hesitation, spasticity. Reflexes are all 1+ symmetrical. Toes are downgoing. No Mike signs are seen. Strength testing is normal and sensation is intact to vibration, light touch and temperature. Imaging studies have shown what is felt to be worsening of "normal pressure hydrocephalus" compared to prior studies several years ago. MRI scan shows nothing acute. CTA showed no significant intracranial or extracranial vascular disease and echocardiogram today shows no cardiogenic source of emboli. Basic laboratory studies show normal white count with slightly decreased platelets. He has a slightly low sodium at 134, which has not been repeated, the glucose was 240. B12 level is normal. Folate level is normal and TSH level is 2.1. Cultures of the stool revealed no C. diff. Other culture results are pending, specifically for Shigella. I am not sure what happened with Mr. Colindres. Certainly, the history suggests a transient ischemic event, possibly left hemisphere if his recall of being unable to formulate words is correct. It is possible he had dysarthria and a little ataxia and he could have had a vertebrobasilar event. He certainly has risk factors. This happened on aspirin and normally in this situation, I recommend we add Plavix, but he does have some thrombocytopenia that needs to be evaluated and followed up before we go any further and at this point all I would do would be add an extra 81 mg aspirin a day. We certainly found no clear source for embolization. He is at risk for small vessel disease and occasionally small vessel events will present with transient ischemic events, but these are usually recurrent and he has had none since. His monitoring has not shown any atrial fibrillation, but this would be a point of the differential diagnosis particularly if he has paroxysmal atrial fibrillation and this could be something that will be evaluated on an outpatient basis. Neurology was actually consulted about the normal pressure hydrocephalus issue. This man clinically certainly does not have the entity and unfortunately there are numerous radiographic criteria for this syndrome that often are not applicable to the clinical situation and at this point I think the diagnosis can be eliminated from the chart. I will check back with him tomorrow, but at this point all I would do would be add an extra aspirin and follow the platelet count and consider an outpatient Zio patch at the [facility] to complete the evaluation. DEEJAY
[2018-04-18 19:05] VITALS: BP 104/53; PULSE 73; TEMP 37.1; O2SAT 91
[2018-04-18 20:00] VITALS: O2SAT 92
[2018-04-18] MEDS: TAMSULOSIN HCL 0.4 MG CAP PO SCH (20:59)
[2018-04-18] MEDS: ATORVASTATIN 40 MG TAB PO SCH (21:00)
[2018-04-18] MEDS ORDERED: ASPIRIN 81 MG ECTAB PO SCH (21:00)
[2018-04-18] MEDS: CALCIUM 600MG + VIT D 400 IU TAB PO SCH (21:01)
[2018-04-18] MEDS: MIRTAZAPINE TAB 15 MG TAB PO SCH (21:01)
[2018-04-18] MEDS: RISPERIDONE 2 MG TAB PO SCH (21:02)
[2018-04-19 00:09] VITALS: BP 137/76; PULSE 76; TEMP 36.6; O2SAT 92
[2018-04-19] MEDS: NSS + 20MEQ KCL 1000ML 1,000 ML IV SCH ×2 (00:40→08:11)
[2018-04-19 03:53] VITALS: BP 113/61; PULSE 72; TEMP 36.8; O2SAT 91
[2018-04-19] MEDS: LEVOTHYROXINE 50 MCG TAB PO SCH (05:41)
[2018-04-19] MEDS: HEPARIN SOD 5000 UNIT/0.5 ML CARP SQ SCH ×2 (05:46→14:00)
[2018-04-19 07:07] VITALS: BP 155/79; PULSE 69; TEMP 37.1; O2SAT 95
[2018-04-19] MEDS ORDERED: ASPIRIN 81 MG ECTAB PO SCH (09:00)
--- NOTE | 2018-04-19 10:06 | Progress Note ---
Internal Med Progress Note Date of Service: Apr 19, 2018. Provider Documentation: SUBJECTIVE: The patient was seen and examined in telemetry unit Was admitted yesterday with the symptoms of dysarthria and dizziness that happened day before yesterday No neuro deficit on admission and so far no imaging studies that is positive for any stroke Complains of diarrhea but no other symptoms 04/19: Denies any symptoms today Diarrhea is much better No more dysarthria and/or dizziness OBJECTIVE: Vital Signs-as noted below Exam: General-no apparent distress Eyes-normal ENT-normal Neck-supple Lungs-clear to auscultate bilaterally Heart-regular, no murmur Abdomen-benign, minimally distended, soft, nontender Extremities-trace edema bilaterally Neuro-alert, awake and oriented 3 No focal sensory and motor deficit appreciated Lab data as noted below. ASSESSMENT & PLAN: Dysarthria with dizziness-Resolved Likely secondary to TIA We will get 10 MRI of the brain combo, CTA, echo and carotid Will admit in telemetry unit Neuro-observation MRI combo of the head, CTA of the head and neck and echocardiogram unremarkable No recurrence of the symptoms and no neuro deficit on examination Await neurologist input Appreciate neurology input and recommendation Normal pressure hydrocephalus-has been ruled out As per the CAT scan it is worsening we will ask for a neurology evaluation-awaiting Does not have any NPH Acute diarrhea Check for stool C. difficile and culture Can have Imodium if those are negative We will give some IV fluid with electrolytes Stool tests are negative for any C. difficile, culture negative We will start Imodium as needed Diarrhea seems to be under control with Imodium Diabetes on oral medication Hold metformin right now We will put him on sliding scale insulin coverage Check hemoglobin [id number] at 10 Schizoaffective disorder No acute symptoms We will continue prior medications DVT prophylaxis Subcu heparin CODE STATUS:; Full DISPOSITION Discharged today with 162 mg aspirin Will have a Zio patch as an outpatient to rule out arrhythmias Vital Signs: Date Time Temp Pulse Resp B/P (MAP) Pulse Ox O2 Delivery O2 Flow Rate FiO2 04/19/18 07:07 37.1 69 19 155/79 (104) 95 Room Air 04/19/18 03:53 36.8 72 19 113/61 (78) 91 04/19/18 00:09 36.6 76 18 137/76 (96) 92 04/18/18 20:00 92 Room Air 04/18/18 19:05 37.1 73 18 104/53 (70) 91 Room Air 04/18/18 15:52 37.1 80 18 143/79 (100) 93 Room Air 04/18/18 11:33 36.8 82 20 131/74 (93) 90 Room Air Lab Results: Results Past 24 Hours Test 04/18/18 11:24 04/18/18 16:23 04/18/18 20:18 04/19/18 07:25 Range/Units Bedside Glucose 220 205 225 164 70-99 mg/dl
[2018-04-19 11:40] VITALS: BP 137/80; PULSE 73; TEMP 36.7; O2SAT 94
[2018-04-19 14:32] LABS: BASO % 0.8 %; BASO ABS # 0.04 K/uL (0-0.2); EOS % 2.2 %; EOS ABS # 0.11 K/uL (0-0.5); HEMATOCRIT 40.4 % (42-52); HEMOGLOBIN 14.4 g/dL (14.0-18.0); IG# 0.02 K/uL (0.00-0.02); LYMPH % 26.8 %; LYMPH ABS # 1.31 K/uL (1.2-3.4); MEAN CORPUSCULAR HEMOGLOBIN 30.6 pg (25-34); MEAN CORPUSCULAR HGB CONC 35.6 g/dl (32-36); MEAN PLATELET VOLUME 10.5 fL (7.4-10.4); MONO % 14.5 %; MONO ABS # 0.71 K/uL (0.11-0.59); NEUT % 55.3 %; PLATELET COUNT 116 K/uL (130-400); RED CELL DISTRIBUTION WIDTH CV 13.2 % (11.5-14.5); RED CELL DISTRIBUTION WIDTH SD 41.6 fL (36.4-46.3); WHITE BLOOD COUNT 4.89 K/uL (4.8-10.8)
--- NOTE | 2018-04-19 14:37 | PROGRESS NOTE ---
DATE: 04/19/2018 Ion looks good today. He is awake, alert, oriented in 3 spheres. He is ready to go back to [facility] this afternoon. He should be discharged on two 81 mg aspirins a day, and I will leave it up to the discretion of the medical staff as to whether they wanted to monitor him for paroxysmal atrial fibrillation, which might be a potential cause for his presumptive transient ischemic events involving left hemisphere or the brainstem, and leaving in its wake, no demonstrable changes on MRI and no evidence for embolic source on routine studies, short of a long-term monitoring for atrial fibrillation. Unfortunately, he does have some thrombocytopenia. Whether this is part of his gastrointestinal illness that has now resolved, cannot be established, but I would suggest in addition to the potential Zio patch, that he have a CBC and differential and platelet count at some point in the next few days to be sure his trend is not downward. Last platelet count was 113,000 down from 123,000 the day before. He really does not need to follow up with neurology unless the long term staff would deem as necessary, but we would be happy to take a look at him in the clinic at [facility] if they would want us to do so. DEEJAY
[2018-04-19] MEDS ORDERED: IMD2X PO (15:17)
--- NOTE | 2018-04-19 15:23 | Discharge Instructions ---
Discharge Instructions Date of Service Apr 19, 2018. Admission Reason for Admission: Diabetes Mellitus, Dysarthria, Nph Discharge Discharge Diagnosis / Problem: Dysarthria-Improved,Possible TIA,Diarrhea due to Campylobacter-improved Discharge Goals Goal(s): Prevent Disease Progression Activity Recommendations Activity Limitations: resume your previous activity . Instructions / Follow-Up Instructions / Follow-Up As Per Provider at [facility].Please arrange a Zio patch as an OP to r/o any Arrhythmia Current Hospital Diet Patient's current hospital diet: Diabetes Type 2 Diet Discharge Diet Recommended Diet: Diabetes Type 2 Diet Pending Studies Studies pending at discharge: no Laboratory Results Hemoglobin A1c Test 04/18/18 05:41 Range/Units Estimated Average Glucose 240 mg/dl Hemoglobin A1c 10.0 H 4.5-5.6 % Medical Emergencies . Who to Call and When: Medical Emergencies: If at any time you feel your situation is an emergency, please call 911 immediately. . Non-Emergent Contact Non-Emergency issues call your: Primary Care Provider . Past History Medical & Surgical History: (1) Dysarthria (2) Diabetes mellitus (3) TIA (transient ischemic attack) (4) Schizoaffective disorder . "Provider Documentation" section prepared by Moni Lees. .
[2018-04-19 15:42] VITALS: BP 137/80; PULSE 73; TEMP 36.7; O2SAT 94
--- NOTE | 2018-04-21 11:39 | Discharge Summary ---
Discharge Summary Date of Service Apr 21, 2018. Discharge Summary Admission Date: Apr 17, 2018 at 14:58 Discharge Date: Apr 19, 2018 Discharge Disposition: Home ([facility]) Principal Diagnosis: Dysarthria-Improved,Possible TIA,Diarrhea due to Campylobacter-improved Secondary Diagnoses/Problems: Please see H&P and Hospital progress note Consultations: Neurology Medication Reconciliation New Medications: Loperamide Hcl (Imodium) 2 Mg Cap 2 MG PO Q4H PRN for Diarrhea for 10 Days, #30 CAP Continued Medications: Aspirin (Aspirin Ec) 81 Mg Tab 162 MG PO QPM Atorvastatin (Lipitor) 40 Mg Tab 40 MG PO QPM Calcium Carbonate-Vitamin D (Calcium + D) 1 Tab Tab 2 TABS PO HS Levothyroxine Sodium (Levothyroxine Sodium) 50 Mcg Tab 50 MCG PO HS Metformin Hcl (Glucophage) 1,000 Mg Tab 1000 MG PO HS Mirtazapine (Remeron) 15 Mg Tab 15 MG PO HS Risperidone (Risperdal) 2 Mg Tab 2 MG PO HS Tamsulosin Hcl (Flomax) 0.4 Mg Cap 0.4 MG PO HS Admission Information HPI (per Admitting provider): Is a 72-year-old male with significant past medical history of diabetes and hypothyroidism apparently was brought in from [facility] with a history of dizziness and dysarthria that happened yesterday. Initially he complains to have diarrhea for the last 2 days without any other symptoms. When asking question he mentioned that he did have some dizziness and dysarthria which lasted for half an hour yesterday and he was brought in to the emergency room today to rule out any stroke. He denies any symptoms except dysarthria which has resolved, denies any visual problem, any headache or pain in the neck, any numbness or tingling in the extremities, any weakness in any parts of the body and any facial asymmetry. He complains to have ongoing diarrhea for the last 2 days that he is already about but denies any incontinence of urine or any frequency and/or burning pain. No chest pain shortness of breath or palpitation and denies any abdominal pain nausea and/or vomiting. In the ER his blood work came out to be unremarkable but he has noted to have normal pressure hydrocephalus on CAT scan from that point he was admitted to telemetry unit. Past Medical/Surgical History Medical Problems: (1) Diabetes (2) Diabetes mellitus (3) Dysarthria (4) NPH (normal pressure hydrocephalus) (5) Schizoaffective disorder (6) Suicide attempt by hanging (7) Suicide attempt by hanging Social History Smoking Status: Never Smoker Smokeless Tobacco Use: No Alcohol Use: none Drug Use: none Housing status: other (Lives in [facility]) Allergies Coded Allergies: No Known Allergies (Unverified , 04/17/18) Home Medications Scheduled Aspirin (Aspirin Ec), 81 MG PO QPM Atorvastatin (Lipitor), 40 MG PO QPM Calcium Carbonate-Vitamin D (Calcium + D), 2 TABS PO HS Levothyroxine Sodium (Levothyroxine Sodium), 50 MCG PO HS Metformin Hcl (Glucophage), 1,000 MG PO HS Mirtazapine (Remeron), 15 MG PO HS Risperidone (Risperdal), 2 MG PO HS Tamsulosin Hcl (Flomax), 0.4 MG PO HS Review of Systems Constitutional: + problem reported (Dizziness and Dysarthria) Neurologic: + problem reported (Dizziness and Dysarthria) Psychiatric: + anxiety Physical Exam Vital Signs Date Time Temp Pulse Resp B/P (MAP) Pulse Ox O2 Delivery O2 Flow Rate FiO2 04/17/18 14:00 87 18 119/83 93 Room Air 04/17/18 13:07 88 04/17/18 13:00 93 Room Air 04/17/18 11:45 36.6 97 18 146/108 93 Room Air General Appearance: no apparent distress Head: normocephalic Eyes: normal inspection ENT: normal ENT inspection Neck: supple, no adenopathy, thyroid normal, no carotid bruits Respiratory/Chest: chest non-tender, lungs clear, normal breath sounds, no respiratory distress Cardiovascular: regular rate, rhythm, no edema, no gallop, no murmur Abdomen/GI: normal bowel sounds Back: normal inspection Extremities/Musculoskelatal: normal inspection Neurologic/Psych: gun tester II-XII nml as tested, no motor/sensory deficits, alert, normal mood/affect, normal reflexes, oriented x 3 Skin: normal color Diagnostics Laboratory Results Results Past 24 Hours Test 04/17/18 12:00 04/17/18 12:45 Range/Units White Blood Count 8.71 4.8-10.8 K/uL Red Blood Count 5.66 4.7-6.1 M/uL Hemoglobin 18.1 14.0-18.0 g/dL Hematocrit 48.3 42-52 % Mean Corpuscular Volume 85.3 80-100 fL Mean Corpuscular Hemoglobin 32.0 25-34 pg Mean Corpuscular Hemoglobin Concent 37.5 32-36 g/dl Platelet Count 126 130-400 K/uL Mean Platelet Volume 10.9 7.4-10.4 fL Neutrophils (%) (Auto) 70.6 % Lymphocytes (%) (Auto) 17.2 % Monocytes (%) (Auto) 11.3 % Eosinophils (%) (Auto) 0.5 % Basophils (%) (Auto) 0.1 % Neutrophils # (Auto) 6.15 1.4-6.5 K/uL Lymphocytes # (Auto) 1.50 1.2-3.4 K/uL Monocytes # (Auto) 0.98 0.11-0.59 K/uL Eosinophils # (Auto) 0.04 0-0.5 K/uL Basophils # (Auto) 0.01 0-0.2 K/uL RDW Standard Deviation 42.1 36.4-46.3 fL RDW Coefficient of Variation 13.5 11.5-14.5 % Immature Granulocyte % (Auto) 0.3 % Immature Granulocyte # (Auto) 0.03 0.00-0.02 K/uL Prothrombin Time 10.9 9.0-12.0 SECONDS Prothromb Time International Ratio 1.0 0.9-1.1 Activated Partial Thromboplast Time 28.2 21.0-31.0 SECONDS Partial Thromboplastin Ratio 1.1 Sodium Level 133 136-145 mmol/L Potassium Level 3.5 3.5-5.1 mmol/L Chloride Level 100 98-107 mmol/L Carbon Dioxide Level 21 21-32 mmol/L Anion Gap 11.0 3-11 mmol/L Blood Urea Nitrogen 8 7-18 mg/dl Creatinine 1.17 0.60-1.40 mg/dl Est Creatinine Clear Calc Drug Dose 70.4 ml/min Estimated GFR () 71.8 Estimated GFR (Non- 61.9 BUN/Creatinine Ratio 6.9 10-20 Random Glucose 261 70-99 mg/dl Calcium Level 9.3 8.5-10.1 mg/dl Magnesium Level 1.8 1.8-2.4 mg/dl Total Bilirubin 1.1 0.2-1 mg/dl Direct Bilirubin 0.3 0-0.2 mg/dl Aspartate Amino Transf (AST/SGOT) 26 15-37 U/L Alanine Aminotransferase (ALT/SGPT) 41 12-78 U/L Alkaline Phosphatase 87 45-117 U/L Troponin I < 0.015 0-0.045 ng/ml Pro-B-Type Natriuretic Peptide 91 0-900 pg/ml Total Protein 7.8 6.4-8.2 gm/dl Albumin 3.8 3.4-5.0 gm/dl Lipase 181 73-393 U/L Thyroid Stimulating Hormone (TSH) 2.130 0.300-4.500 uIu/ml Salicylates Level < 1.7 2.8-20 mg/dl Acetaminophen Level < 2 10-30 ug/ml Ethyl Alcohol mg/dL < 3.0 0-3 mg/dl Diagnostic Radiology CT of the Head-NPH worsening Impression Assessment and Plan Dysarthria with dizziness-Resolved Likely secondary to TIA We will get 10 MRI of the brain combo, CTA, echo and carotid Will admit in telemetry unit Neuro-observation Normal pressure hydrocephalus As per the CAT scan it is worsening we will ask for a neurology evaluation Acute diarrhea Check for stool C. difficile and culture Can have Imodium if those are negative We will give some IV fluid with electrolytes Diabetes on oral medication Hold metformin right now We will put him on sliding scale insulin coverage Check hemoglobin A1c Schizoaffective disorder No acute symptoms We will continue prior medications DVT prophylaxis Subcu heparin CODE STATUS:; Full In my clinical judgment the beneficially meets criteria as per CMS for 2 midnight stay in the hospital Resuscitation Status VTE Prophylaxis Will order VTE Prophylaxis: Yes Physical Exam (per Admitting): General Appearance: no apparent distress Head: normocephalic Eyes: normal inspection ENT: normal ENT inspection Neck: supple, no adenopathy, thyroid normal, no carotid bruits Respiratory/Chest: chest non-tender, lungs clear, normal breath sounds, no respiratory distress Cardiovascular: regular rate, rhythm, no edema, no gallop, no murmur Abdomen/GI: normal bowel sounds Back: normal inspection Extremities/Musculoskelatal: normal inspection Neurologic/Psych: gun tester II-XII nml as tested, no motor/sensory deficits, alert , normal mood/affect, normal reflexes, oriented x 3 Skin: normal color Hospital Course Dysarthria with dizziness-Resolved Likely secondary to TIA We will get 10 MRI of the brain combo, CTA, echo and carotid Will admit in telemetry unit Neuro-observation MRI combo of the head, CTA of the head and neck and echocardiogram unremarkable No recurrence of the symptoms and no neuro deficit on examination Await neurologist input Appreciate neurology input and recommendation Normal pressure hydrocephalus-has been ruled out As per the CAT scan it is worsening we will ask for a neurology evaluation-awaiting Does not have any NPH Acute diarrhea Check for stool C. difficile and culture Can have Imodium if those are negative We will give some IV fluid with electrolytes Stool tests are negative for any C. difficile, culture negative We will start Imodium as needed Diarrhea seems to be under control with Imodium Diabetes on oral medication Hold metformin right now We will put him on sliding scale insulin coverage Check hemoglobin [id number] at 10 Schizoaffective disorder No acute symptoms We will continue prior medications DVT prophylaxis Subcu heparin CODE STATUS:; Full DISPOSITION Discharged today with 162 mg aspirin Will have a Zio patch as an outpatient to rule out arrhythmias Total time spent on discharge = 35 minutes This includes examination of the patient, discharge planning, medication reconciliation, and communication with other providers. Discharge Instructions Date of Service Apr 19, 2018. Admission Reason for Admission: Diabetes Mellitus, Dysarthria, Nph Discharge Discharge Diagnosis / Problem: Dysarthria-Improved,Possible TIA,Diarrhea due to Campylobacter-improved Discharge Goals Goal(s): Prevent Disease Progression Activity Recommendations Activity Limitations: resume your previous activity . Instructions / Follow-Up Instructions / Follow-Up As Per Provider at [facility].Please arrange a Zio patch as an OP to r/o any Arrhythmia Current Hospital Diet Patient's current hospital diet: Diabetes Type 2 Diet Discharge Diet Recommended Diet: Diabetes Type 2 Diet Pending Studies Studies pending at discharge: no Laboratory Results Hemoglobin A1c Test 04/18/18 05:41 Range/Units Estimated Average Glucose 240 mg/dl Hemoglobin A1c 10.0 H 4.5-5.6 % Medical Emergencies . Who to Call and When: Medical Emergencies: If at any time you feel your situation is an emergency, please call 911 immediately. . Non-Emergent Contact Non-Emergency issues call your: Primary Care Provider . Past History Medical & Surgical History: (1) Dysarthria (2) Diabetes mellitus (3) TIA (transient ischemic attack) (4) Schizoaffective disorder . "Provider Documentation" section prepared by Moni Lees. . <Electronically signed by Moni Lees M.D.> Signed: 04/19/18 [id number] Additional Copies To [facility]
== END 2018-04-19 16:40 | disposition home or self-care (01) | DRG 372 ==
LOC: C.EDB 11:44 → C.2E 14:58 → EDBEDREQ 15:05 → ENRESERV 15:15
PROVIDERS: ADMIT Internal Medicine; ATTEND Internal Medicine
DX: A04.5 Campylobacter enteritis (principal); G45.9 Transient cerebral ischemic attack, unspecified; G91.2 (Idiopathic) normal pressure hydrocephalus; R47.1 Dysarthria and anarthria; E11.9 Type 2 diabetes mellitus without complications; R15.9 Full incontinence of feces; F25.9 Schizoaffective disorder, unspecified; Z79.84 Long term (current) use of oral hypoglycemic drugs; E03.9 Hypothyroidism, unspecified; R33.9 Retention of urine, unspecified

== ENCOUNTER 2025-04-14 16:33 | Observation (INO) ==
--- NOTE | 2025-04-14 16:55 | Emergency Department Note ---
History of Present Illness General Chief complaint: TIA Symptoms Stated complaint: TIA Time Seen by Provider: 04/14/25 16:38 History of Present Illness Provider complaint: Strokelike symptoms 79-year-old male prisoner presents to the emergency department stating "I think I had a stroke". Patient reports this morning he started having numbness in his bilateral hands. He does not know exactly what time his symptoms started. No blood thinners. No falls or traumas. Home Medications Medication Instructions Recorded Confirmed Type aspirin 81 mg tablet,delayed 81 mg PO HS 08/15/20 04/14/25 History release atorvastatin 40 mg tablet 40 mg PO HS 08/15/20 04/14/25 History calcium 600 mg (as 2 tab PO HS 08/15/20 04/14/25 History carbonate)-vitamin D3 10 mcg (400 unit) tablet glipizide 10 mg tablet 10 mg PO HS 08/15/20 04/14/25 History levothyroxine 50 mcg tablet 50 mcg PO HS 08/15/20 04/14/25 History metformin 1,000 mg tablet 1,000 mg PO HS 08/15/20 04/14/25 History acetaminophen 500 mg tablet 1,000 mg PO BID 02/02/25 04/14/25 History cholecalciferol (vitamin D3) 25 50 mcg PO DAILY 04/14/25 04/14/25 History mcg (1,000 unit) capsule (Vitamin D3) diclofenac sodium 50 mg 50 mg PO BID 04/14/25 04/14/25 History tablet,delayed release Allergies Allergy/AdvReac Type Severity Reaction Status Date / Time No Known Allergies Allergy Verified 04/14/25 17:53 Past Med/Surg History Problem List (Updated 04/14/25 @ 18:17 by Dayton Mehta MD) Hypomagnesemia (Acute) Brain TIA (Acute) Closed left arm fracture Tachycardia Severe aortic stenosis Hypotension (Acute) Acute dyspnea (Acute) Medical History Hyperlipidemia Hypothyroidism NPH (normal pressure hydrocephalus) Diabetes mellitus Diabetes Schizoaffective disorder Social History Smoking Status: Never smoker Hx Alcohol Use: No Hx Substance Use: No Preferred Language: French Inseam Leveler Required: No Beliefs That Will Affect Care: None Current Living Situation: Other Current Living Situation Comment: [facility] Feels Safe at Home: Yes Physical Exam Vital Signs Vital Signs - 24 hr 04/14/25 16:33 04/14/25 16:51 Temperature 36.5 C Temperature Source Temporal Artery Scan Pulse Rate 101 H 99 H Respiratory Rate 19 Respiratory Effort / Characteristics Non-Labored Spontaneous Respiratory Depth Normal Blood Pressure 155/89 H Blood Pressure Mean 111 Pulse Oximetry 95 Oxygen Delivery Method Room Air Sepsis Recent Fever Within 48 Hours No Sepsis New/Unexplained Change in Mental Status N/A Sepsis Action Taken by Nursing No Action Required Physical Exam GENERAL: Patient is an hand and ankle cuffs with correctional officers at bedside. HENT: Exam performed. - Head: Normocephalic and atraumatic. EYES: Conjunctivae and EOM are normal. Right eye exhibits no discharge. Left eye exhibits no discharge. No scleral icterus. NECK: Normal range of motion. Neck supple. No JVD present. CV: Normal rate, regular rhythm, systolic murmur and intact distal pulses. There is no peripheral edema. Palpable radial pulses bue. PULM/CHEST: Effort normal and breath sounds normal. No respiratory distress. No stridor. no wheezes. no rales. ABD: The abdomen is soft. There is no tenderness. NEURO: NIHSS 1 (10:1) however correctional officers at bedside state that this is the patient's normal speech pattern SKIN: Skin is warm and dry. He is not diaphoretic. PSYCH: Patient has tardive dyskinesia. Course Course 163: The patient was evaluated in room B2. A complete history and physical exam was performed Cardiac monitoring: An order was placed for continuous cardiac monitoring. The monitor shows a rate of 90 with sinus rhythm interpreted by me No code stroke called as the patient reports his symptoms began this morning and he does not know exactly what time and that the armored vehicle officer state that he sounds like he normally does. Patient is not a TNKase candidate. 180: Vital signs stable. Labs show magnesium of 1.4. Magnesium repletion started in the emergency department.CT head and CTA head are negative. CTA neck shows severe stenosis of the left carotid bulb with 80% narrowing and 50% diameter stenosis of the right carotid bulb. [facility] Patient will be given aspirin and Plavix for TIA. Administered Medications Discontinued Medications Ioversol (Optiray 320 125ml) 117 ml IV ONCE ONE Stop: 04/14/25 17:26 Last Admin: 04/14/25 17:26 Dose: 117 ml Documented By: MIGUEL Medical Decision Making Laboratory Data Attestation: I reviewed the patient's lab results. 04/14/25 16:50 04/14/25 16:50 Lab Results 04/14/25 04/14/25 04/14/25 Range/Units 16:49 16:50 16:55 WBC 10.13 (4.8-10.8) K/ul RBC 5.19 (4.70-6.10) M/uL Hgb 15.3 (14.0-18.0) g/dl POC Hgb 16.0 (14.0-18.0) g/dl Hct 44.3 (42.0-52.0) % POC Hct 47 (42-52) % MCV 85.4 (80.0-100.0) fL MCH 29.5 (25.0-34.0) pg MCHC 34.5 (32.0-36.0) g/dL RDW Std Deviation 41.4 (36.4-46.3) fL RDW Coeff of Adore 13.3 (11.5-14.5) % Plt Count 277 (130-400) K/uL MPV 9.4 (9.4-12.4) fL Immature Gran % (Auto) 0.3 % Neut % (Auto) 65.2 % Lymph % (Auto) 24.4 % [place] % (Auto) 9.1 % Eos % (Auto) 0.7 % Baso % (Auto) 0.3 % Neut # (Auto) 6.61 H (1.40-6.50) K/uL Lymph # (Auto) 2.47 (1.20-3.40) K/uL [place] # (Auto) 0.92 H (0.11-0.59) K/uL Eos # (Auto) 0.07 (0.00-0.50) K/uL Baso # (Auto) 0.03 (0.00-0.20) K/uL Immature Gran # (Auto) 0.03 (0.01-0.20) K/uL PT 11.4 (9.0-12.0) Seconds INR 1.1 (0.9-1.1) APTT 31 (21-31) Seconds PTT Ratio 1.2 POC Sodium 133 L (135-144) mmol/L Sodium 133 L (136-145) mmol/L POC Potassium 4.0 (3.3-5.0) mmol/L Potassium 4.3 (3.5-5.1) mmol/L POC Chloride 98 L (101-112) mmol/L Chloride 98 (98-107) mmol/L Carbon Dioxide 26 (21-32) mmol/L POC Total CO2 23 L (24-31) mmol/L Anion Gap 9 (3-11) POC Anion Gap 17.0 (16-25) mmol/L POC BUN 8 (7-18) mg/dl BUN 10 (6-23) mg/dl Creatinine 0.83 (0.6-1.4) mg/dl POC Creatinine 0.8 (0.6-1.3) mg/dl Est Cr Clr Drug Dosing 82.2 ml/min eGFR 89.03 BUN/Creatinine Ratio 12.0 (10-20) Glucose 140 H (70-99(Fasting)) mg/dl POC Glucose (other) 144 H (70-99) mg/dl Calcium 10.0 (8.6-10.3) mg/dl POC Ioniz Calcium Philip 1.24 (1.12-1.32) mmol/l Magnesium 1.4 L (1.7-2.4) mg/dl Total Bilirubin 0.6 (0.2-1.0) mg/dl AST 44 H (13-39) U/L ALT 44 (7-52) U/L Alkaline Phosphatase 139 H (34-104) U/L Troponin I High Sens 9.6 (0-20) pg/ml Total Protein 6.8 (6.0-8.3) gm/dl Albumin 3.7 (3.4-5.0) gm/dl Globulin 3.1 (2.5-4.0) gm/dl Albumin/Globulin Ratio 1.2 (0.9-2) Blood Type A Positive Antibody Screen NEGATIVE Imaging Data Attestation: I personally reviewed and interpreted this imaging study as follows: My Impression: Chest x-ray negative. Airway clear. No pneumothorax. No consolidation. No cardiomegaly or cephalization.. No free air under the diaphragm. No fractures of the skeletal structures. Radiologist's Impression: Chest X-Ray 04/14/25 16:44 Chest radiograph, one view History: Stroke alert Comparison: None Findings: Single AP view of the chest performed. No focal consolidation or pleural effusion. No pneumothorax. The cardiomediastinal silhouette is within normal limits. Normal pulmonary vascularity. No evidence for lymphadenopathy. No visualized bony or soft tissue abnormality. Impression: Normal chest radiograph Electronically signed by Mor Snell 04-14-2025 5:[address] 04/14/25 16:44 Clinical History: Possible stroke Technique: Axial computed tomography images were obtained of the brain without intravenous contrast. Comparison is made to the prior CT dated 01/26/2025 Findings: There is unchanged cerebral atrophy, within expected limits for the patient's age. Areas of decreased attenuation are seen within the periventricular white matter, likely representing chronic small vessel ischemic disease. There is no definite sign of acute or old infarction. No intracranial hemorrhage is evident. No definite mass lesion is seen on this noncontrast examination. There is no midline shift or other form of herniation. No hydrocephalus is seen. No fracture is identified. The orbits and the visualized paranasal sinuses appear unremarkable. The mastoid air cells appear clear. Impression: 1. Unchanged cerebral atrophy and chronic small vessel ischemic disease 2. No definite acute pathology Electronically signed by Wayne Frazier 04-14-2025 5:56 PM Head CTA 04/14/25 16:44 Clinical history: Possible stroke Technique: Axial computed tomography images were obtained of the brain after the administration of intravenous contrast according to the CT angiogram protocol Findings: There is calcified plaque within the cavernous and supraclinoid segments of the internal carotid arteries bilaterally, without significant stenosis No definite stenosis or aneurysm is seen of the anterior, middle, or posterior cerebral artery circulations. The basilar artery appears normal Impression: No definite stenosis or aneurysm of the intracranial arteries Electronically signed by Wayne Frazier 04-14-2025 5:57 PM Neck CTA 04/14/25 16:44 Clinical history: Possible stroke Technique: Axial computed tomography images were obtained of the neck after the administration of intravenous contrast according to the CT angiogram protocol Findings: No stenosis is seen in the common carotid arteries bilaterally. There is an approximately 50% diameter stenosis of the right carotid bulb and proximal right internal carotid artery. There is a severe stenosis of the left carotid bulb with approximately 80% diameter narrowing. The remainder of the internal carotid arteries appear patent bilaterally. No stenosis of the external carotid arteries is seen There are moderate severity stenosis of the distal vertebral arteries bilaterally. The visualized thoracic aorta appears unremarkable There is multilevel degenerative disc disease and osteoarthritis of the cervical spine. Impression: 1. Severe stenosis of the left carotid bulb with approximately 80% narrowing 2. Approximately 50% diameter stenosis of the right carotid bulb and proximal right ICA 3. Moderate severity stenoses of the distal vertebral arteries bilaterally ACT 112: Positive. There are findings on this exam that require communication between the performing entity and the patient following Patient Test Result Information Act ([place] ACT 112) guidelines. Electronically signed by Wayne Frazier 04-14-2025 6:01 PM ECG Data Attestation: I personally reviewed and interpreted this ECG as follows: Rate (beats per minute): 96 Rhythm: + normal sinus ECG Intervals/blocks: + Normal AK and + Normal QT-c ECG ST segments: + Normal ST segments Additional Comments: QRS 78 MDM Narrative 1638: The patient was evaluated in room B2. A complete history and physical exam was performed Cardiac monitoring: An order was placed for continuous cardiac monitoring. The monitor shows a rate of 90 with sinus rhythm interpreted by me No code stroke called as the patient reports his symptoms began this morning and he does not know exactly what time and that the armored vehicle officer state that he sounds like he normally does. Patient is not a TNKase candidate. 1809: Vital signs stable. Labs show magnesium of 1.4. Magnesium repletion started in the emergency department.CT head and CTA head are negative. CTA neck shows severe stenosis of the left carotid bulb with 80% narrowing and 50% diameter stenosis of the right carotid bulb. Patient will be [facility] to the [facility] hospitalist team. Patient will be given aspirin and Plavix for TIA. Impression & Plan Brain TIA, Hypomagnesemia Discharge Plan Visit Data Chief Complaint: TIA Symptoms Stated Complaint: TIA ED Provider: Dayton Mehta Discharge Problem: Brain TIA, Hypomagnesemia Patient Disposition: Admitted As Inpatient Condition: Fair Forms Stand Alone Forms: My [facility] Prescriptions Prescriptions: No Action aspirin 81 mg Tablet,Delayed Release (Dr/Ec) 81 mg PO HS atorvastatin 40 mg Tablet 40 mg PO HS calcium carbonate-vitamin D3 600 mg(1,500mg) -400 unit Tablet 2 tab PO HS glipizide 10 mg Tablet 10 mg PO HS levothyroxine 50 mcg Tablet 50 mcg PO HS metformin 1,000 mg Tablet 1,000 mg PO HS acetaminophen 500 mg Tablet 1,000 mg PO BID diclofenac sodium [Voltaren] 50 mg Tablet,Delayed Release (Dr/Ec) 50 mg PO BID cholecalciferol (vitamin D3) [Vitamin D3] 25 mcg (1,000 unit) Capsule 50 mcg PO DAILY Referrals Referrals: Dora ELLER [Primary Care Provider] -
[2025-04-14 17:04] LABS: Hematocrit (blood only) 44.3 % (42.0-52.0); Hemoglobin 15.3 g/dl (14.0-18.0); Immature Granulocytes # (auto) 0.03 K/uL (0.01-0.20); Immature Granulocytes % (auto) 0.3 %; Mean Corpuscular Hemoglobin 29.5 pg (25.0-34.0); Mean Corpuscular Volume 85.4 fL (80.0-100.0); Platelet Count 277 K/uL (130-400); RDW Standard Deviation 41.4 fL (36.4-46.3); Red Blood Count 5.19 M/uL (4.70-6.10); White Blood Count 10.13 K/ul (4.8-10.8)
[2025-04-14] MEDS: OPTIRAY 320 125ml IV ONE (17:26)
[2025-04-14 17:27] LABS: Alanine Aminotransferase 44.0 U/L (7-52); Albumin Globulin Ratio 1.2 (0.9-2); Alkaline Phosphatase 139.0 U/L (34-104); Anion Gap 9.0 (3-11); Bilirubin,Total 0.6 mg/dl (0.2-1.0); Blood Urea Nitrogen 10.0 mg/dl (6-23); Calcium 10.0 mg/dl (8.6-10.3); Carbon Dioxide 26.0 mmol/L (21-32); Chloride 98.0 mmol/L (98-107); Creatinine Clr Calc Pharmacy 82.2 ml/min; Globulin 3.1 gm/dl (2.5-4.0); Glucose 140.0 mg/dl (70-99(Fasting)); Magnesium 1.4 mg/dl (1.7-2.4); Potassium 4.3 mmol/L (3.5-5.1); Sodium 133.0 mmol/L (136-145); Total Protein 6.8 gm/dl (6.0-8.3)
--- NOTE | 2025-04-14 17:31 | XRay Report ---
Chest radiograph, one view History: Stroke alert Comparison: None Findings: Single AP view of the chest performed. No focal consolidation or pleural effusion. No pneumothorax. The cardiomediastinal silhouette is within normal limits. Normal pulmonary vascularity. No evidence for lymphadenopathy. No visualized bony or soft tissue abnormality. Impression: Normal chest radiograph Electronically signed by Mor Snell 04-14-2025 5:31 PM
[2025-04-14 17:33] LABS: INR 1.1 (0.9-1.1); Partial Thromboplastin Time 31 Seconds (21-31); Prothrombin Time 11.4 Seconds (9.0-12.0)
--- NOTE | 2025-04-14 17:56 | CT Scan Report ---
Clinical History: Possible stroke Technique: Axial computed tomography images were obtained of the brain without intravenous contrast. Comparison is made to the prior CT dated 01/26/2025 Findings: There is unchanged cerebral atrophy, within expected limits for the patient's age. Areas of decreased attenuation are seen within the periventricular white matter, likely representing chronic small vessel ischemic disease. There is no definite sign of acute or old infarction. No intracranial hemorrhage is evident. No definite mass lesion is seen on this noncontrast examination. There is no midline shift or other form of herniation. No hydrocephalus is seen. No fracture is identified. The orbits and the visualized paranasal sinuses appear unremarkable. The mastoid air cells appear clear. Impression: 1. Unchanged cerebral atrophy and chronic small vessel ischemic disease 2. No definite acute pathology Electronically signed by Wayne Frazier 04-14-2025 5:56 PM
--- NOTE | 2025-04-14 17:58 | CT Scan Report ---
Clinical history: Possible stroke Technique: Axial computed tomography images were obtained of the brain after the administration of intravenous contrast according to the CT angiogram protocol Findings: There is calcified plaque within the cavernous and supraclinoid segments of the internal carotid arteries bilaterally, without significant stenosis No definite stenosis or aneurysm is seen of the anterior, middle, or posterior cerebral artery circulations. The basilar artery appears normal Impression: No definite stenosis or aneurysm of the intracranial arteries Electronically signed by Wayne Frazier 04-14-2025 5:57 PM
--- NOTE | 2025-04-14 18:01 | CT Scan Report ---
Clinical history: Possible stroke Technique: Axial computed tomography images were obtained of the neck after the administration of intravenous contrast according to the CT angiogram protocol Findings: No stenosis is seen in the common carotid arteries bilaterally. There is an approximately 50% diameter stenosis of the right carotid bulb and proximal right internal carotid artery. There is a severe stenosis of the left carotid bulb with approximately 80% diameter narrowing. The remainder of the internal carotid arteries appear patent bilaterally. No stenosis of the external carotid arteries is seen There are moderate severity stenosis of the distal vertebral arteries bilaterally. The visualized thoracic aorta appears unremarkable There is multilevel degenerative disc disease and osteoarthritis of the cervical spine. Impression: 1. Severe stenosis of the left carotid bulb with approximately 80% narrowing 2. Approximately 50% diameter stenosis of the right carotid bulb and proximal right ICA 3. Moderate severity stenoses of the distal vertebral arteries bilaterally ACT 112: Positive. There are findings on this exam that require communication between the performing entity and the patient following Patient Test Result Information Act ([place] ACT 112) guidelines. Electronically signed by Wayne Frazier 04-14-2025 6:01 PM
[2025-04-14] MEDS: ASPIRIN 81 MG CHEW PO STA (18:26)
[2025-04-14] MEDS: CLOPIDOGREL BISULFATE 300 MG TAB PO STA (18:27)
[2025-04-14] MEDS: MAGNESIUM SULFATE / D5W 1 GM/100 ML BAG IV SCH (18:27)
--- NOTE | 2025-04-14 18:59 | History & Physical Report ---
Date of Service April 14, 2025 Assessment & Plan (1) Stroke: Plan: Patient is a 79year old M, current inmate at [facility], with a past medical history of severe aortic stenosis, diabetes, hypothyroidism, schizoaffective disorder, hyperlipidemia, normal pressure hydrocephalus who presents to the emergency department with stroke-like symptoms. Patient reports having numbness to bilateral upper and lower extremities, different than baseline as he has had periodic numbness to lower extremities only in the past. He was accompanied by corrections officers, who report the patient has baseline cognitive impairments with thrusting tongue movements and a garbled speech. Patient has been on aspirin and statin outpatient. #Suspected Stroke 2/2 paraesthesia #Severe * Admit to PCU Tele for stroke workup * Presenting with stroke-like symptoms, mostly numbness to BUE; has tardive dyskinesia at baseline * Aspirin and Plavix given in ED * CT head showing unchanged cerebral atrophy and chronic small vessel ischemic disease; No definite acute pathology * CTA Neck showing severe stenosis of the left carotid bulb with approximately 80% narrowing; Approximately 50% diameter stenosis of the right carotid bulb and proximal right ICA; Moderate severity stenoses of the distal vertebral arteries bilaterally * H/O severe -> Echo 01/2025 showing LVEF 65-70%, mod concentric LV hypertrophy, RV mild dilated, AV with severe restricted leaflet motion with mod-severe * Will continue with stroke w/u-> MRI, Echo, Lipids, A1C pending * Continue statin * Will check ortho stats d/t upper extremity numbness * Will also check B12, TSH, Folate, RPR given risk * Cardiology consult ordered and awaiting further recs * Neuro consult ordered * PT/OT consult when appropriate #Hypomagnesemia * Mag 1.4-> replaced 1gm x 2 * Will recheck with AM labs * EKG ok #Hyperlipidemia * Continue home statin * Will check lipids with AM labs #Diabetes Mellitus * SSI while inpatient * Hold metformin * Accucheck ACHS; Goal 110-140 DVT Ppx: SCDs Code status: Full PCP: [facility] Dispo: Admit to PCU for further workup and eval Patient seen in collaboration with Dr. Bo. Please see addendum.I spent a total of 70 minutes coordinating, documenting and providing care for this patient excluding time spent in the performance of separately billed services or time spent by another provider/QHP. (2) Severe aortic stenosis: (3) Hypomagnesemia: (4) Hyperlipidemia: (5) Diabetes mellitus: History of Present Illness Primary Care Provider: [facility] Patient is a 79year old M, current inmate at [facility], with a past medical history of severe aortic stenosis, diabetes, hypothyroidism, schizoaffective disorder, hyperlipidemia, normal pressure hydrocephalus who presents to the emergency department with stroke-like symptoms. Patient reports having numbness to bilateral upper and lower extremities, different than baseline as he has had periodic numbness to lower extremities only in the past. He was accompanied by corrections officers, who report the patient has baseline cognitive impairments with thrusting tongue movements and a garbled speech. Denies fever, chills, weight loss, weakness, headache, vision/hearing changes, chest pain, SOB, swelling, difficulty breathing, urinary concerns, N/V/D, joint swelling/pain, ambulation difficulty, skin rashes, lesions, bleeding, bruising. In the emergency department, patient was hemodynamically stable with no signs of infection. BP was initially elevated at 158/122 and trended down on it's own. Labs were mostly unremarkable. Mag 1.4 and replaced with [address] showed unchanged cerebral atrophy and chronic small vessel ischemic disease with no acute pathology. Neck CTA showed severe stenosis of the left carotid bulb with approximately 80% narrowing, approximately 50% diameter stenosis of the right carotid bulb and proximal right ICA, and moderate severity stenoses of the distal vertebral arteries bilaterally. Aspirin and plavix given in ED. No TNKase given. Patient was hospitalized 02/02/2025-02/03/2025 and found to have new aortic stenosis, Cardiology consulted with rec for no urgent need for TAVR and follow- up outpatient. ECHO from 01/2025 showing EF 65 to 70%. Left ventricle wall motion is normal. Moderate concentric LVH. Right ventricle is mild to moderately dilated. Right ventricle systolic function is normal. Aortic valve difficult to visualize but appears to be severely restricted leaflet motion consistent with moderate to severe aortic stenosis. Patient has been on aspirin and statin outpatient. History of present illness difficult to obtain, as patient was accompanied by corrections officers with minimal knowledge of patient's history or presenting illness. History obtained primarily from the patient and via hospitalization record. Allergies Allergy/AdvReac Type Severity Reaction Status Date / Time No Known Allergies Allergy Verified 04/14/25 17:53 Home Medications Medication Instructions Recorded Confirmed Type aspirin 81 mg tablet,delayed 81 mg PO HS 08/15/20 04/14/25 History release atorvastatin 40 mg tablet 40 mg PO HS 08/15/20 04/14/25 History calcium 600 mg (as 2 tab PO HS 08/15/20 04/14/25 History carbonate)-vitamin D3 10 mcg (400 unit) tablet glipizide 10 mg tablet 10 mg PO HS 08/15/20 04/14/25 History levothyroxine 50 mcg tablet 50 mcg PO HS 08/15/20 04/14/25 History metformin 1,000 mg tablet 1,000 mg PO HS 08/15/20 04/14/25 History acetaminophen 500 mg tablet 1,000 mg PO BID 02/02/25 04/14/25 History cholecalciferol (vitamin D3) 25 50 mcg PO DAILY 04/14/25 04/14/25 History mcg (1,000 unit) capsule (Vitamin D3) diclofenac sodium 50 mg 50 mg PO BID 04/14/25 04/14/25 History tablet,delayed release Past Med/Surg History Problem List Stroke Hypomagnesemia (Acute) Brain TIA (Acute) Closed left arm fracture Tachycardia Severe aortic stenosis Hypotension (Acute) Acute dyspnea (Acute) Medical History Hyperlipidemia Hypothyroidism NPH (normal pressure hydrocephalus) Diabetes mellitus Diabetes Schizoaffective disorder Social History Smoking Status: Never smoker Hx Alcohol Use: No Hx Substance Use: No Preferred Language: [employer] Supervisor Required: No Beliefs That Will Affect Care: None Current Living Situation: Other Current Living Situation Comment: Dora Feels Safe at Home: Yes Review of Systems Review of Systems: All systems reviewed & are unremarkable except as noted in HPI & below Physical Exam Physical Exam: VITALS: Reviewed. WEIGHT/BMI reviewed. GEN:well-developed, NAD. PSYCH: Good Judgment. AOx3. Normal memory, mood, and affect. HEENT -Head: NC/AT; -Eyes: PERRL, EOMI. No discharge or redn ess; -Ears: External ears are normal. -Nose: Normal nares. -Mouth and throat: Dry gums, mucosa, pal ate,. edentulous NECK: Supple, with no masses. CV: Harsh Systolic murmur w/ radiation, no swelling, perfusing well LUNGS: CTAB, no w/r/c. ABD: Soft, NT/ND, NBS, no masses or organomegaly. : N/A SKIN: Warm, well perfused. No skin rashes or abnormal lesions. MSK: No deformities, Normal gait. EXT: No clubbing, cyanosis, or edema. NEURO: Ambulating with no limitations. Normal muscle strength and tone. No focal deficits. Results & Data Results & Data Vital Signs (Past 12 Hours) Vital Signs Temp Pulse Pulse Resp BP BP Pulse Ox 04/14/25 18:25 90 20 158/113 H 98 04/14/25 16:51 99 H 04/14/25 16:33 36.5 C 101 H 19 155/89 H 95 O2 Del Method 04/14/25 18:25 Room Air 04/14/25 16:51 04/14/25 16:33 Room Air Laboratory Results Short CBC 04/14/25 Range/Units 16:50 WBC 10.13 (4.8-10.8) K/ul Hgb 15.3 (14.0-18.0) g/dl Hct 44.3 (42.0-52.0) % Plt Count 277 (130-400) K/uL BMP 04/14/25 16:50 Sodium 133 L Potassium 4.3 Chloride 98 Carbon Dioxide 26 BUN 10 Creatinine 0.83 Glucose 140 H Calcium 10.0 Liver Function 04/14/25 Range/Units 16:50 Total Bilirubin 0.6 (0.2-1.0) mg/dl AST 44 H (13-39) U/L ALT 44 (7-52) U/L Alkaline Phosphatase 139 H (34-104) U/L Albumin 3.7 (3.4-5.0) gm/dl Diagnostic Findings Chest X-Ray 04/14/25 16:44 Chest radiograph, one view History: Stroke alert Comparison: None Findings: Single AP view of the chest performed. No focal consolidation or pleural effusion. No pneumothorax. The cardiomediastinal silhouette is within normal limits. Normal pulmonary vascularity. No evidence for lymphadenopathy. No visualized bony or soft tissue abnormality. Impression: Normal chest radiograph Electronically signed by Mor Snell 04-14-2025 5:[address] 04/14/25 16:44 Clinical History: Possible stroke Technique: Axial computed tomography images were obtained of the brain without intravenous contrast. Comparison is made to the prior CT dated 01/26/2025 Findings: There is unchanged cerebral atrophy, within expected limits for the patient's age. Areas of decreased attenuation are seen within the periventricular white matter, likely representing chronic small vessel ischemic disease. There is no definite sign of acute or old infarction. No intracranial hemorrhage is evident. No definite mass lesion is seen on this noncontrast examination. There is no midline shift or other form of herniation. No hydrocephalus is seen. No fracture is identified. The orbits and the visualized paranasal sinuses appear unremarkable. The mastoid air cells appear clear. Impression: 1. Unchanged cerebral atrophy and chronic small vessel ischemic disease 2. No definite acute pathology Electronically signed by Wayne Frazier 04-14-2025 5:56 PM Head CTA 04/14/25 16:44 Clinical history: Possible stroke Technique: Axial computed tomography images were obtained of the brain after the administration of intravenous contrast according to the CT angiogram protocol Findings: There is calcified plaque within the cavernous and supraclinoid segments of the internal carotid arteries bilaterally, without significant stenosis No definite stenosis or aneurysm is seen of the anterior, middle, or posterior cerebral artery circulations. The basilar artery appears normal Impression: No definite stenosis or aneurysm of the intracranial arteries Electronically signed by Wayne Frazier 04-14-2025 5:57 PM Neck CTA 04/14/25 16:44 Clinical history: Possible stroke Technique: Axial computed tomography images were obtained of the neck after the administration of intravenous contrast according to the CT angiogram protocol Findings: No stenosis is seen in the common carotid arteries bilaterally. There is an approximately 50% diameter stenosis of the right carotid bulb and proximal right internal carotid artery. There is a severe stenosis of the left carotid bulb with approximately 80% diameter narrowing. The remainder of the internal carotid arteries appear patent bilaterally. No stenosis of the external carotid arteries is seen There are moderate severity stenosis of the distal vertebral arteries bilaterally. The visualized thoracic aorta appears unremarkable There is multilevel degenerative disc disease and osteoarthritis of the cervical spine. Impression: 1. Severe stenosis of the left carotid bulb with approximately 80% narrowing 2. Approximately 50% diameter stenosis of the right carotid bulb and proximal right ICA 3. Moderate severity stenoses of the distal vertebral arteries bilaterally ACT 112: Positive. There are findings on this exam that require communication between the performing entity and the patient following Patient Test Result Information Act ([place] ACT 112) guidelines. Electronically signed by Wayne Frazier 04-14-2025 6:01 PM Code Status & VTE Plan VTE Prophylaxis Plan VTE Prophylaxis will be ordered: Yes Supervising Physician Co-Signing Physician Notes I have seen and discussed the case with the collaborating advanced practitioner. I agree with the above H&P. I have reviewed and confirmed the patients medical history, the findings on physical examination, and the patients diagnosis and treatment plan with Alberto THOMAS and agree with the information documented. In short, Mr. Colindres is a 79 yo gentleman presenting for concerns of stroke like symptoms. He reports bilateral hand tingling and predominate left upper extremity paraesthesias. These symptoms were resolved at time of exam. Patient is edentulous and with roving tongue movements, which is baseline per the guard at bedside. Patient answers in simple yes/no responses predominately, will answer simple and single questions. #Strokelike symptoms #LUE paraesthesias resolved now resolved continue home asa CTA noted carotid stenosis continue plavix and asa for now continue statin mri ordered neuro consult rest of plan as above I spent a total of 35 minutes coordinating, documenting, and providing care for this patient excluding time spent in the performance of separately billed services. All of the aforementioned completed outside of collaborating with the assigned advanced practitioner for a full treatment plan. I have reviewed the advanced practitioner's documentation, and I agree with, and take responsibility for the plan of care
[2025-04-14 20:00] LABS: Thyroid Stimulating Hormone 5.217 uIu/ml (0.300-4.500)
[2025-04-14] MEDS: GADOBUTROL 65ML VIAL IV ONE (21:21)
[2025-04-14 21:27] LABS: Folate (Folic Acid),Ser orPlas 6.37 ng/ml (>5.38); Vitamin B12 415.0 pg/ml (180-914)
[2025-04-14] MEDS ORDERED: DEXTROSE 50% 50 ML SYRINGE IV PRN (21:43)
[2025-04-14] MEDS ORDERED: GLUCAGON FOR INJ 1 MG VIAL SQ PRN (21:43)
[2025-04-14] MEDS ORDERED: POLYETHYLENE (MIRALAX) 17 GM PACK PO PRN (21:43)
[2025-04-14] MEDS ORDERED: GLUCOSE 40% GEL 15 GM TUBE PO PRN (21:43)
[2025-04-14] MEDS ORDERED: PHARMACY GLYCEMIC MGMT CONSULT PRN (21:43)
[2025-04-14] MEDS ORDERED: ALUMINUM/MAGNESIUM SUSP 30 ML UDC PO PRN (21:43)
[2025-04-14] MEDS ORDERED: ACETAMINOPHEN 325 MG TAB PO PRN (21:43)
[2025-04-14] MEDS ORDERED: CARBOHYDRATES FOR HYPOGLYCEMIA PO PRN (21:43)
[2025-04-14] MEDS ORDERED: GLUCOSE 10 TAB/TUBE PO PRN (21:43)
[2025-04-14] MEDS ORDERED: PHARMACIST DISCHARGE MED REC CONSULT PRN (21:43)
[2025-04-14] MEDS ORDERED: MAGNESIUM HYDROXIDE SUSP 30 ML UDC PO PRN (21:43)
[2025-04-14] MEDS ORDERED: ONDANSETRON INJ 2 MG/ML 2 ML VIAL IV PRN (21:43)
[2025-04-14] MEDS: INSULIN ASPART PER UNIT CHARGE SC SCH (22:10)
[2025-04-14] MEDS: CALCIUM 600MG + VIT D 400 IU TAB PO SCH (22:18)
[2025-04-14] MEDS: ATORVASTATIN 40 MG TAB PO SCH (22:18)
[2025-04-14] MEDS: ASPIRIN 81 MG ECTAB PO SCH (22:18)
[2025-04-14] MEDS: LEVOTHYROXINE SODIUM 50 MCG TABLET PO SCH (22:18)
--- NOTE | 2025-04-14 22:35 | Magnetic Resonance Report ---
Exam(s): MRI HEAD W/WO Contrast EXAM: MR Head Without and With Intravenous Contrast CLINICAL HISTORY: Reason for exam: stroke. TECHNIQUE: Magnetic resonance images of the head/brain without and with intravenous contrast in multiple planes. COMPARISON: CT, CTA 04/14/2025 FINDINGS: Brain: No diffusion restriction to suggest acute cerebral ischemia. No evidence of acute intracranial hemorrhage. Generalized parenchymal volume loss. Periventricular and deep cerebral white matter FLAIR signal hyperintensity consistent with chronic small-vessel ischemic change. No mass effect or midline shift. No intracranial mass or abnormal enhancement. Proximal intracranial flow voids appear normal. Ventricles: Unremarkable. No hydrocephalus. Bones/joints: Unremarkable. No acute fracture. Sinuses: Trace mucosal thickening in the paranasal sinuses. Mastoid air cells: Unremarkable as visualized. No mastoid effusion. Orbits: Lens replacements. IMPRESSION: No diffusion restriction to suggest acute cerebral ischemia. No evidence of acute intracranial hemorrhage. Electronically signed by: David Jensen M.D. 04/14/25 22:34 PM
[2025-04-15 06:11] LABS: Hematocrit (blood only) 40.0 % (42.0-52.0); Hemoglobin 14.1 g/dl (14.0-18.0); Immature Granulocytes # (auto) 0.03 K/uL (0.01-0.20); Immature Granulocytes % (auto) 0.4 %; Mean Corpuscular Hemoglobin 29.8 pg (25.0-34.0); Mean Corpuscular Volume 84.6 fL (80.0-100.0); Platelet Count 256 K/uL (130-400); RDW Standard Deviation 40.9 fL (36.4-46.3); Red Blood Count 4.73 M/uL (4.70-6.10); White Blood Count 6.77 K/ul (4.8-10.8)
[2025-04-15 06:33] LABS: Anion Gap 7.0 (3-11); Blood Urea Nitrogen 8.0 mg/dl (6-23); Calcium 9.8 mg/dl (8.6-10.3); Carbon Dioxide 28.0 mmol/L (21-32); Chloride 99.0 mmol/L (98-107); Cholesterol 98.0 mg/dl (0-200); Creatinine Clr Calc Pharmacy 88.7 ml/min; Glucose 122.0 mg/dl (70-99(Fasting)); HDL Cholesterol 31.0 mg/dl; Magnesium 1.8 mg/dl (1.7-2.4); Potassium 3.8 mmol/L (3.5-5.1); Sodium 134.0 mmol/L (136-145); Triglycerides 144.0 mg/dl (0-150)
[2025-04-15] MEDS: INSULIN ASPART PER UNIT CHARGE SC SCH ×2 (06:33→17:44)
[2025-04-15 07:23] LABS: Hemoglobin A1C 5.6 % (4.5-5.6)
--- NOTE | 2025-04-15 08:19 | Electrocardiogram Report ---
Test Reason : Blood Pressure : */* mmHG Vent. Rate : 96 BPM Atrial Rate : 96 BPM P-R Int : 170 ms QRS Dur : 78 ms QT Int : 340 ms P-R-T Axes : 54 27 72 degrees QTcB Int : 429 ms Normal sinus rhythm When compared with ECG of 02-Feb-2025 00:55, Criteria for Inferior infarct are no longer Present T wave inversion no longer evident in Inferior leads Confirmed by Mor Shearer ([id number]) on 04/15/2025 8:19:15 AM Referred By: [facility] Confirmed By: Mor Shearer
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
[2025-04-15] MEDS: CHOLECALCIFEROL 25 MCG (1000 UNITS) TAB PO SCH (11:21)
[2025-04-15] MEDS: CLOPIDOGREL BISULFATE 75 MG TAB PO SCH (11:21)
--- NOTE | 2025-04-15 12:26 | Anesthesiology Consultation ---
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 Consults Requested none History Surgery Operation Date: 04/15/25 12:30 Proposed Procedures p Transesophageal Echo w/Anesthesia - Jeremi Paige DO Height/Weight Height: 5 ft 7 in Weight: 94.5 kg Allergies Allergy/AdvReac Type Severity Reaction Status Date / Time No Known Allergies Allergy Verified 04/14/25 17:53 Medications Home Medications Medication Instructions Recorded Confirmed Last Taken aspirin 81 mg tablet,delayed 81 mg PO HS 08/15/20 04/14/25 04/14/25 release atorvastatin 40 mg tablet 40 mg PO HS 08/15/20 04/14/25 04/14/25 calcium 600 mg (as 2 tab PO HS 08/15/20 04/14/25 04/14/25 carbonate)-vitamin D3 10 mcg (400 unit) tablet glipizide 10 mg tablet 10 mg PO HS 08/15/20 04/14/25 04/14/25 levothyroxine 50 mcg tablet 50 mcg PO HS 08/15/20 04/14/25 04/14/25 metformin 1,000 mg tablet 1,000 mg PO HS 08/15/20 04/14/25 04/14/25 acetaminophen 500 mg tablet 1,000 mg PO BID 02/02/25 04/14/25 04/02/25 cholecalciferol (vitamin D3) 25 50 mcg PO DAILY 04/14/25 04/14/25 04/14/25 mcg (1,000 unit) capsule (Vitamin D3) diclofenac sodium 50 mg 50 mg PO BID 04/14/25 04/14/25 04/02/25 tablet,delayed release Active Medications Generic Name Dose Route Start Last Admin Trade Name Isaiahq PRN Reason Stop Dose Admin Aspirin 81 mg 04/14/25 21:00 04/14/25 22:18 Aspirin 81 Mg Ectab PO 05/14/25 20:59 81 mg HS JOSE Administration Atorvastatin Calcium 40 mg 04/14/25 21:00 04/14/25 22:18 Atorvastatin 40 Mg Tab PO 05/14/25 20:59 40 mg HS JOSE Administration Calcium/Vitamin D 2 tab 04/14/25 21:00 04/14/25 22:18 Calcium 600mg + Vit D 400 Iu Tab PO 05/14/25 20:59 2 tab HS JOSE Administration Clopidogrel Bisulfate 75 mg 04/15/25 09:00 04/15/25 11:21 Clopidogrel Bisulfate 75 Mg Tab PO 05/15/25 08:59 75 mg QAM JOSE Administration Insulin Aspart 0 units 04/15/25 06:00 04/15/25 06:33 Insulin Aspart Per Unit Charge SC 05/15/25 05:59 Not Given Q6 JOSE Levothyroxine Sodium 50 mcg 04/14/25 21:00 04/14/25 22:18 Levothyroxine Sodium 50 Mcg Tablet PO 05/14/25 20:59 50 mcg HS JOSE Administration Vitamin D 50 mcg 04/15/25 09:00 04/15/25 11:21 Cholecalciferol 25 Mcg (1000 Units) Tab PO 05/15/25 08:59 50 mcg DAILY JOSE Administration Past Medical History Medical History Hyperlipidemia Hypothyroidism NPH (normal pressure hydrocephalus) Diabetes mellitus Diabetes Schizoaffective disorder Social History Smoking Status: Never smoker Do You Dip or Chew Tobacco: No Hx Alcohol Use: No Hx Substance Use: No substance use type: does not use Physical Exam Vital Signs Last Vital Signs Temp 36.8 C 04/15/25 07:19 Pulse 82 04/15/25 07:29 Resp 19 04/15/25 07:19 BP 148/78 H 04/15/25 07:19 Pulse Ox 94 04/15/25 07:19 O2 Del Method Room Air 04/15/25 07:19 Testing Laboratory Results 04/15/25 05:31 04/15/25 05:31 PT 11.4 Seconds (9.0-12.0) 04/14/25 16:50 INR 1.1 (0.9-1.1) 04/14/25 16:50 APTT 31 Seconds (21-31) 04/14/25 16:50 Hemoglobin A1c 5.6 % (4.5-5.6) 04/15/25 05:31 Blood Type A Positive 04/14/25 16:49 Antibody Screen NEGATIVE 04/14/25 16:49 04/15/25 11:52 POC Glucose 132 H Electrocardiogram Date: 04/14/25 Findings: + NSR @ Echocardiogram Date: 02/02/25 EF: 65-70 LV Function: normal Other Findings: + LVH (mod) Valvular Disease: + (mod-severe)
--- NOTE | 2025-04-15 13:29 | Post Operative Brief Note ---
Cardiology Brief Post Op Date of Surgery April 15, 2025 Pre & Post Diagnosis Operation Date: 04/15/25 12:30 Preprocedure diagnosis: Moderate severe aortic stenosis, technically limited transthoracic echocardiogram Preprocedure diagnosis: Moderate severe aortic stenosis Procedure Transesophageal echocardiogram procedure: The patient's vital signs were monitored via the standard fashion. The patient was sedated with the assistance of the anesthesia service. The patient underwent transesophageal echocardiogram. The aortic valve was severely calcified with reduced excursion. Moderate aortic stenosis was present, refer to final report after analysis has been completed. Senior Hr Manager DO Assistant Yumi Leblanc, RIGO Estimated Blood Loss 0 Findings Consistent with Post-Op Diagnosis Anesthesia Type MAC Complications none
--- NOTE | 2025-04-15 13:30 | Pharmacy Report ---
Pharmacy Glycemic Short Note 2 - Date of Service April 15, 2025 - Glycemic Short BSG Results (Last 24 hours): 04/14/25 04/14/25 04/14/25 16:50 16:55 22:03 Glucose 140 H POC Glucose 128 H POC Glucose (other) 144 H 04/15/25 04/15/25 05:31 11:52 Glucose 122 H POC Glucose 132 H POC Glucose (other) OUTPATIENT ANTIDIABETIC REGIMEN: * glipizide 10mg po daily * metformin 1000mg po daily HbA1c: 5.6% on 04/15/25 ASSESSMENT: * Ion was admitted 04/14 with a suspected stroke. Pharmacy was consulted for glycemic management while he is admitted. * BSG on arrival was 144mg/dL and was 128mg/dL at bedtime last night. A weight based bolus insulin regimen with a stress of 2 was started at that time * Fasting BSG this morning was in the goal range. Patient is currently NPO. Will not start basal insulin at this time and will continue previously ordered bolus insulin without change. PLAN FOR INPATIENT GLYCEMIC CONTROL: * Hold outpatient oral diabetes medications * Basal insulin * None * Bolus insulin * NovoLog per scale ACHS or Q6hrs while NPO * Goal Range: Low 110 mg/dL - High 140 mg/dL * Correction Factor: 25 mg/dL/unit * Nutritional / Prandial insulin per carb ratio of 1 unit per 8 grams CHO consumed
--- NOTE | 2025-04-15 13:54 | Anesthesiology Progress Note ---
Date of Service April 15, 2025 Anesthesia Post Procedure Vital Signs Vital Signs: Temp Pulse Pulse Resp BP BP Pulse Ox 04/15/25 13:40 80 18 151/92 H 97 04/15/25 13:25 77 18 143/101 H 100 04/15/25 12:55 85 146/94 H 98 04/15/25 07:29 82 04/15/25 07:19 36.8 C 83 19 148/78 H 94 04/15/25 03:17 36.5 C 78 20 162/82 H 96 04/14/25 23:23 36.8 C 82 21 132/84 97 04/14/25 20:01 124/89 04/14/25 19:48 81 18 98 04/14/25 19:31 122/71 04/14/25 19:31 122/71 04/14/25 19:31 122/71 04/14/25 19:30 86 14 99 04/14/25 19:29 119/85 04/14/25 19:29 119/85 04/14/25 19:27 87 18 98 04/14/25 19:15 89 27 H 96 04/14/25 19:10 94 H 19 140/99 99 04/14/25 19:07 140/99 04/14/25 19:00 158/122 H 04/14/25 19:00 158/122 H 04/14/25 18:57 143/90 H 04/14/25 18:51 97 H 26 H 93 04/14/25 18:50 201/123 H 04/14/25 18:25 90 20 158/113 H 98 04/14/25 18:24 158/113 H 04/14/25 18:15 83 15 04/14/25 18:06 85 14 04/14/25 17:39 88 22 04/14/25 16:51 96 H 25 H 04/14/25 16:51 99 H 04/14/25 16:33 36.5 C 101 H 19 155/89 H 95 O2 Del Method 04/15/25 13:40 Room Air 04/15/25 13:25 Room Air 04/15/25 12:55 Room Air 04/15/25 07:29 04/15/25 07:19 Room Air 04/15/25 03:17 Room Air 04/14/25 23:23 Room Air 04/14/25 20:01 04/14/25 19:48 04/14/25 19:31 04/14/25 19:31 04/14/25 19:31 04/14/25 19:30 04/14/25 19:29 04/14/25 19:29 04/14/25 19:27 04/14/25 19:15 04/14/25 19:10 04/14/25 19:07 04/14/25 19:00 04/14/25 19:00 04/14/25 18:57 04/14/25 18:51 04/14/25 18:50 04/14/25 18:25 Room Air 04/14/25 18:24 04/14/25 18:15 04/14/25 18:06 04/14/25 17:39 04/14/25 16:51 04/14/25 16:51 04/14/25 16:33 Room Air Transfer of Care Handoff Completed per policy Notes Mental Status: alert / awake / arousable Patient Amnestic to Procedure: Yes Nausea / Vomiting: adequately controlled Pain: adequately controlled Airway Patency, RR, SpO2: stable & adequate BP & HR: stable & adequate Hydration State: stable & adequate Anesthetic Complications: no major complications apparent and Pt Satisfied with anesthetic care
[2025-04-15] MEDS: BENZOCAINE/TETRACAIN/BUTAM 50 APPLN/5 GM CAN EXT ONE (14:11)
--- NOTE | 2025-04-15 14:43 | Neurology Consultation ---
Date of Consultation April 15, 2025 Assessment & Plan (1) Stroke-like symptoms: Cannot exclude a TIA Cannot exclude clued NPH Plan Recommend loading with Plavix 300 mg. Start aspirin 81 mg in addition to Plavix 75 mg and atorvastatin 80 mg for 21 days this can be switched later to aspirin 81 mg plus atorvastatin 80 mg Refer to neuroendovascular surgery as an outpatient within 2 weeks. Regarding his NPH the patient needs to be referred to NPH clinic for further PT OT evaluation, cognitive testing to determine if he would be eligible for diagnosis of NPH. Further history is being obtained from medical supervisors, to obtain more clinical history regarding his memory cognitive function, his gait and if there is any urinary incontinence. Telehealth Consultation Telehealth Information Telehealth Information: I performed this visit using a real-time telehealth connection between my location and the patients location ([facility]). After connecting through interactive tele-video, patient was identified by name and date of and/or wristband check.Patient (or authorized healthcare billing representative) was informed that this was a telemedicine visit and it was being conducted confidentially over secure lines. My office door was closed and no one else was present in the room with me.Patient (or authorized healthcare billing representative) provided consent to proceed with the visit, expressed an understanding of privacy and security of the telemedicine visit, and gave permission to have a hospital billing representative in the room in order to assist with the visit and to conduct portions of the visit, as needed. I informed the patient (or authorized healthcare billing representative) that I reviewed their record and presented the opportunity for them to ask any questions regarding the visit today. The patient agreed to participate. History of Present Illness Reason for Consultation: stroke-like symptoms Requesting Physician: Zach Mason MD Attending Physician: Zach Mason MD History of Present Illness Ion Leavitt is 79-year-old male patient with PMH of hypertension hyperlipidemia, severe aortic stenosis and carotid stenosis who presented to the hospital with worsening paresthesias. The patient comes from group home, he reports having bilateral hand numbness that has gotten worse. He also reports having word finding difficulty. He denies any motor weakness. When asked about speech changes he reports having word finding difficulty. When asked about any incontinence he denies except for today where he had difficulty controlling his urine. The patient is a poor historian, reports that he walks normally and present without a walker however reports using a wheelchair for expediency. He reports that his memory is not the best. No other recent illnesses reported. NKECHI was done earlier and the patient received fentanyl after which he was stating bugs" crawling on the oh, however this is improved. Allergies Allergy/AdvReac Type Severity Reaction Status Date / Time No Known Allergies Allergy Verified 04/14/25 17:53 Home Medications Medication Instructions Recorded Confirmed Type aspirin 81 mg tablet,delayed 81 mg PO HS 08/15/20 04/14/25 History release atorvastatin 40 mg tablet 40 mg PO HS 08/15/20 04/14/25 History calcium 600 mg (as 2 tab PO HS 08/15/20 04/14/25 History carbonate)-vitamin D3 10 mcg (400 unit) tablet glipizide 10 mg tablet 10 mg PO HS 08/15/20 04/14/25 History levothyroxine 50 mcg tablet 50 mcg PO HS 08/15/20 04/14/25 History metformin 1,000 mg tablet 1,000 mg PO HS 08/15/20 04/14/25 History acetaminophen 500 mg tablet 1,000 mg PO BID 02/02/25 04/14/25 History cholecalciferol (vitamin D3) 25 50 mcg PO DAILY 04/14/25 04/14/25 History mcg (1,000 unit) capsule (Vitamin D3) diclofenac sodium 50 mg 50 mg PO BID 04/14/25 04/14/25 History tablet,delayed release Patient History Medical History Hyperlipidemia Hypothyroidism NPH (normal pressure hydrocephalus) Diabetes mellitus Diabetes Schizoaffective disorder Social History Smoking Status: Never smoker Second Hand Exposure: No; Do You Dip or Chew Tobacco: No; Tobacco Cessation Education Requested by Patient: No Hx Alcohol Use: No Hx Substance Use: No Preferred Language: Portuguese Communication Ability: Effective Certified Flex Endoscope Reprocessor Required: No Beliefs That Will Affect Care: None Current Living Situation: Other Current Living Situation Comment: [facility] Other Information That Helps Us Care for You: No Feels Safe at Home: Yes Safety Concerns: Feels Safe At This Time Assistive Devices: None Review of Systems Negative except for the ones mentioned in the HPI Physical Exam General Constitutional: Appearance normally developed Head and face: normocephalic and atraumatic Eyes: no ptosis, no anisocoria, and no dysconjugate gaze Respiratory: normal effort Cardiovascular: regular rhythm and regular rate Abdomen: non distended Skin: no rashes, lesions, or ulcers noted Psychiatric: normal judgement and insight, normal mood, and normal affect NEUROLOGIC EXAMINATION: Mental Status:alert, oriented to time, place, person, normal recent memory, normal remote memory, normal attention span, normal concentration, Cranial Nerves: CN 2 - no visual defect on confrontation and pupils round, equal, reactive to light CN 3, 4, 6 - extra-ocular movements intact and no nystagmus CN 5 - facial sensation intact CN 7 - no facial asymmetry CN 8 - decreased hearing acuity CN 9, 10 - palate symmetric, normal gag CN 11 - good shoulder shrug CN 12 - tongue midline MOTOR: Strength was at least antigravity throughout, Pronator drift was absent and There were no abnormal movements SENSATION: intact and symmetric to pinprick, light touch, vibration and joint position GAIT: Deferred COORDINATION: no ataxia with finger to nose testing REFLEXES: cannot assess over telemedicine NIH Stroke Scale: 1a. Level of Consciousness: alert = 0 1b. LOC Questions: (month, age): both correct = 0 1c. LOC Commands (open and close eyes, make fist and let go using non-paretic hand): obeys both correctly = 0 2. Best Gaze (eyes open and patient follows examiner's finger or face): normal = 0 3. Visual (visual threat or finger counting in each quadrant): no loss = 0 4. Facial Palsy (show teeth, raise eye brows and squeeze eyes shut, or grimace symmetry in a comatose patient): normal = 0 5a. Motor Arm (extend arm (palms down) to 90 degrees and score drift/movement (10 seconds) - Left: no drift = 0 5b. Motor Arm: (extend arm (palms down) to 90 degrees and score drift/movement (10 seconds) - Right: no drift = 0 6a. Motor Leg (elevate leg 30 degrees and score drift/ movement (5 seconds) - Left: no drift = 0 6b. Motor Leg (elevate leg 30 degrees and score drift/ movement (5 seconds) - Right: no drift = 0 7. Limb Ataxia (finger to nose, heel down bryant): absent = 0 8. Sensory (pin prick to face, arm, trunk and leg, compare side to side): normal = 0 9. Best Language: no aphasia = 0 10. Dysarthria (evaluate speech clarity by patient repeating listed words): normal articulation = 0 11. Extinction and Inattention: no neglect = 0 Total: 0 Results & Data Vital Signs (Past 12 Hours) Vital Signs Temp Pulse Pulse Resp BP Pulse Ox O2 Del Method 04/15/25 14:23 79 04/15/25 13:59 36.3 C L 77 18 171/90 H 95 Room Air 04/15/25 13:40 80 18 151/92 H 97 Room Air 04/15/25 13:25 77 18 143/101 H 100 Room Air 04/15/25 12:55 85 146/94 H 98 Room Air 04/15/25 07:30 Room Air 04/15/25 07:29 82 04/15/25 07:19 36.8 C 83 19 148/78 H 94 Room Air 04/15/25 03:17 36.5 C 78 20 162/82 H 96 Room Air Laboratory Results Laboratory Results - last 24 hr 04/14/25 04/14/25 04/14/25 16:49 16:50 16:55 WBC 10.13 RBC 5.19 Hgb 15.3 POC Hgb 16.0 Hct 44.3 POC Hct 47 MCV 85.4 MCH 29.5 MCHC 34.5 RDW Std Deviation 41.4 RDW Coeff of Adore 13.3 Plt Count 277 MPV 9.4 Immature Gran % (Auto) 0.3 Neut % (Auto) 65.2 Lymph % (Auto) 24.4 Giles % (Auto) 9.1 Eos % (Auto) 0.7 Baso % (Auto) 0.3 Neut # (Auto) 6.61 H Lymph # (Auto) 2.47 Giles # (Auto) 0.92 H Eos # (Auto) 0.07 Baso # (Auto) 0.03 Immature Gran # (Auto) 0.03 PT 11.4 INR 1.1 APTT 31 PTT Ratio 1.2 POC Sodium 133 L Sodium 133 L POC Potassium 4.0 Potassium 4.3 POC Chloride 98 L Chloride 98 Carbon Dioxide 26 POC Total CO2 23 L Anion Gap 9 POC Anion Gap 17.0 POC BUN 8 BUN 10 Creatinine 0.83 POC Creatinine 0.8 Est Cr Clr Drug Dosing 82.2 eGFR 89.03 BUN/Creatinine Ratio 12.0 Glucose 140 H POC Glucose POC Glucose (other) 144 H Estimat Average Glucose Hemoglobin A1c Calcium 10.0 POC Ioniz Calcium Philip 1.24 Phosphorus Magnesium 1.4 L Total Bilirubin 0.6 AST 44 H ALT 44 Alkaline Phosphatase 139 H Troponin I High Sens 9.6 Total Protein 6.8 Albumin 3.7 Globulin 3.1 Albumin/Globulin Ratio 1.2 Triglycerides Cholesterol LDL Cholesterol, Calc VLDL Cholesterol, Calc HDL Cholesterol Cholesterol/HDL Ratio Vitamin B12 415 Folate 6.37 TSH 5.217 H Free T4 1.18 Nasal Screen MRSA (PCR) Treponema pallidum Ab Negative Blood Type A Positive Antibody Screen NEGATIVE 04/14/25 04/14/25 04/15/25 22:03 Unknown 05:31 WBC 6.77 RBC 4.73 Hgb 14.1 POC Hgb Hct 40.0 L POC Hct MCV 84.6 MCH 29.8 MCHC 35.3 RDW Std Deviation 40.9 RDW Coeff of Adore 13.2 Plt Count 256 MPV 9.5 Immature Gran % (Auto) 0.4 Neut % (Auto) 59.8 Lymph % (Auto) 28.2 Giles % (Auto) 10.0 Eos % (Auto) 1.2 Baso % (Auto) 0.4 Neut # (Auto) 4.04 Lymph # (Auto) 1.91 Giles # (Auto) 0.68 H Eos # (Auto) 0.08 Baso # (Auto) 0.03 Immature Gran # (Auto) 0.03 PT INR APTT PTT Ratio POC Sodium Sodium 134 L POC Potassium Potassium 3.8 POC Chloride Chloride 99 Carbon Dioxide 28 POC Total CO2 Anion Gap 7 POC Anion Gap POC BUN BUN 8 Creatinine 0.74 POC Creatinine Est Cr Clr Drug Dosing 88.7 eGFR 92.17 BUN/Creatinine Ratio 10.8 Glucose 122 H POC Glucose 128 H POC Glucose (other) Estimat Average Glucose 114 Hemoglobin A1c 5.6 Calcium 9.8 POC Ioniz Calcium Philip Phosphorus 3.3 Magnesium 1.8 Total Bilirubin AST ALT Alkaline Phosphatase Troponin I High Sens Total Protein Albumin Globulin Albumin/Globulin Ratio Triglycerides 144 Cholesterol 98 LDL Cholesterol, Calc 38 VLDL Cholesterol, Calc 29 HDL Cholesterol 31 Cholesterol/HDL Ratio 3.2 Vitamin B12 Folate TSH Free T4 Nasal Screen MRSA (PCR) Positive A Treponema pallidum Ab Blood Type Antibody Screen 04/15/25 11:52 WBC RBC Hgb POC Hgb Hct POC Hct MCV MCH MCHC RDW Std Deviation RDW Coeff of Adore Plt Count MPV Immature Gran % (Auto) Neut % (Auto) Lymph % (Auto) Giles % (Auto) Eos % (Auto) Baso % (Auto) Neut # (Auto) Lymph # (Auto) Giles # (Auto) Eos # (Auto) Baso # (Auto) Immature Gran # (Auto) PT INR APTT PTT Ratio POC Sodium Sodium POC Potassium Potassium POC Chloride Chloride Carbon Dioxide POC Total CO2 Anion Gap POC Anion Gap POC BUN BUN Creatinine POC Creatinine Est Cr Clr Drug Dosing eGFR BUN/Creatinine Ratio Glucose POC Glucose 132 H POC Glucose (other) Estimat Average Glucose Hemoglobin A1c Calcium POC Ioniz Calcium Philip Phosphorus Magnesium Total Bilirubin AST ALT Alkaline Phosphatase Troponin I High Sens Total Protein Albumin Globulin Albumin/Globulin Ratio Triglycerides Cholesterol LDL Cholesterol, Calc VLDL Cholesterol, Calc HDL Cholesterol Cholesterol/HDL Ratio Vitamin B12 Folate TSH Free T4 Nasal Screen MRSA (PCR) Treponema pallidum Ab Blood Type Antibody Screen Diagnostic Findings MRI of the brain done 04/14/2025 shows no acute ischemic infarct. CTA of the head and neck shows left ICA stenosis of about 80% with complex plaque. Right ICA stenosis of about 50%. Echocardiogram shows LVEF of 65 to 70% aortic valve has a severely restricted leaflet motion consistent with moderate to severe aortic stenosis concentric LVH. Medications Administered Home Medications Medication Instructions Recorded Confirmed Last Taken aspirin 81 mg tablet,delayed 81 mg PO HS 08/15/20 04/14/25 04/14/25 release atorvastatin 40 mg tablet 40 mg PO HS 08/15/20 04/14/25 04/14/25 calcium 600 mg (as 2 tab PO HS 08/15/20 04/14/25 04/14/25 carbonate)-vitamin D3 10 mcg (400 unit) tablet glipizide 10 mg tablet 10 mg PO HS 08/15/20 04/14/25 04/14/25 levothyroxine 50 mcg tablet 50 mcg PO HS 08/15/20 04/14/25 04/14/25 metformin 1,000 mg tablet 1,000 mg PO HS 08/15/20 04/14/25 04/14/25 acetaminophen 500 mg tablet 1,000 mg PO BID 02/02/25 04/14/25 04/02/25 cholecalciferol (vitamin D3) 25 50 mcg PO DAILY 04/14/25 04/14/25 04/14/25 mcg (1,000 unit) capsule (Vitamin D3) diclofenac sodium 50 mg 50 mg PO BID 04/14/25 04/14/25 04/02/25 tablet,delayed release Active Medications Generic Name Dose Route Start Last Admin Trade Name Giles PRN Reason Stop Dose Admin Aspirin 81 mg 04/14/25 21:00 04/14/25 22:18 Aspirin 81 Mg Ectab PO 05/14/25 20:59 81 mg HS JOSE Administration Atorvastatin Calcium 40 mg 04/14/25 21:00 04/14/25 22:18 Atorvastatin 40 Mg Tab PO 05/14/25 20:59 40 mg HS JOSE Administration Calcium/Vitamin D 2 tab 04/14/25 21:00 04/14/25 22:18 Calcium 600mg + Vit D 400 Iu Tab PO 05/14/25 20:59 2 tab HS JOSE Administration Clopidogrel Bisulfate 75 mg 04/15/25 09:00 04/15/25 11:21 Clopidogrel Bisulfate 75 Mg Tab PO 05/15/25 08:59 75 mg QAM JOSE Administration Levothyroxine Sodium 50 mcg 04/14/25 21:00 04/14/25 22:18 Levothyroxine Sodium 50 Mcg Tablet PO 05/14/25 20:59 50 mcg HS JOSE Administration Vitamin D 50 mcg 04/15/25 09:00 04/15/25 11:21 Cholecalciferol 25 Mcg (1000 Units) Tab PO 05/15/25 08:59 50 mcg DAILY JOSE Administration
[2025-04-15] MEDS ORDERED: Nursing to Pharmacy Communication SCH (15:00)
--- NOTE | 2025-04-15 15:08 | Communication Note ---
Date of Service: April 15, 2025 Transesophageal echocardiogram images analyzed. The study was somewhat technically limited with patient exhibiting deep respiratory excursions make it difficult to keep structures in frame. Left Ventricular Ejection Fraction = 55-60%. Moderate valvular aortic stenosis is present. Doppler velocities were obtained from the deep transgastric view, with peak CW velocity across the aortic valve of 3.5 m/s, mean gradient 27 mmHg. The aortic valve area by the 2D planimetry method yielded an aortic valve area= 1.2-1.4 cm Mild aortic regurgitation. With the admission of agitated saline contrast, a scant number of bubbles were noted to cross to the left circulation late consistent with the presence of a very mild extracardiac shunt for which no further workup is felt to be necessary for this. Given the lack of clinical symptoms to suggest severe aortic stenosis and findings of moderate aortic stenosis on transesophageal echocardiogram, ongoing observation recommended. Recommend inpatient or outpatient vascular surgery evaluation regarding carotid stenosis, although like I am not certain that he is symptomatic from this. Continue aspirin, statin therapy. Outpatient cardiology follow up with [facility]. Cardiology to sign off, call with questions or concerns. Nickie Paige, DO
--- NOTE | 2025-04-15 15:43 | Hospitalist Progress Note ---
Date of Service April 15, 2025 Assessment & Plan (1) Stroke: Plan: per admitting service notes with addendum: Patient is a 79year old M, current inmate at [facility], with a past medical history of severe aortic stenosis, diabetes, hypothyroidism, schizoaffective disorder, hyperlipidemia, normal pressure hydrocephalus who presents to the emergency department with stroke-like symptoms. Patient reports having numbness to bilateral upper and lower extremities, different than baseline as he has had periodic numbness to lower extremities only in the past. He was accompanied by corrections officers, who report the patient has baseline cognitive impairments with thrusting tongue movements and a garbled speech. Patient has been on aspirin and statin outpatient. #Suspected Stroke 2/2 paraesthesia #Severe * Admit to PCU Tele for stroke workup * Presenting with stroke-like symptoms, mostly numbness to BUE; has tardive dyskinesia at baseline * Aspirin and Plavix given in ED * CT head showing unchanged cerebral atrophy and chronic small vessel ischemic disease; No definite acute pathology * CTA Neck showing severe stenosis of the left carotid bulb with approximately 80% narrowing; Approximately 50% diameter stenosis of the right carotid bulb and proximal right ICA; Moderate severity stenoses of the distal vertebral arteries bilaterally * H/O severe -> Echo 01/2025 showing LVEF 65-70%, mod concentric LV hypertrophy, RV mild dilated, AV with severe restricted leaflet motion with mod-severe * Will continue with stroke w/u-> MRI, Echo, Lipids, A1C pending * Continue statin * Will check ortho stats d/t upper extremity numbness * Will also check B12, TSH, Folate, RPR given risk * Cardiology consult ordered and awaiting further recs * Neuro consult ordered * PT/OT consult when appropriate 04/15 Brain MRI negative awaiting Neurology service recommendations evaluated by Cardiology SVC s/p T:EE "Transesophageal echocardiogram images analyzed. The study was somewhat technically limited with patient exhibiting deep respiratory excursions make it difficult to keep structures in frame. Left Ventricular Ejection Fraction = 55-60%. Moderate valvular aortic stenosis is present. Doppler velocities were obtained from the deep transgastric view, with peak CW velocity across the aortic valve of 3.5 m/s, mean gradient 27 mmHg. The aortic valve area by the 2D planimetry method yielded an aortic valve area= 1.2-1.4 cm Mild aortic regurgitation. With the admission of agitated saline contrast, a scant number of bubbles were noted to cross to the left circulation late consistent with the presence of a very mild extracardiac shunt for which no further workup is felt to be necessary for this." "Given the lack of clinical symptoms to suggest severe aortic stenosis and findings of moderate aortic stenosis on transesophageal echocardiogram, ongoing observation recommended. Recommend inpatient or outpatient vascular surgery evaluation regarding carotid stenosis, although like I am not certain that he is symptomatic from this. Continue aspirin, statin therapy." #Hypomagnesemia * Mag 1.4-> replaced 1gm x 2 * Will recheck with AM labs * EKG ok #Hyperlipidemia * Continue home statin #Diabetes Mellitus * SSI while inpatient * Hold metformin * Accucheck ACHS; Goal 110-140 DVT Ppx: SCDs Code status: Full PCP: DAPHNIE John Dispo: Admit to PCU for further workup and eval (2) Severe aortic stenosis: (3) Hypomagnesemia: (4) Hyperlipidemia: (5) Diabetes mellitus: Admission and Anticipated Discharge Date Admission Date: April 14, 2025 Subjective ff up for BL upper and lower extremities paresthesias, etc seen resting in bed, comfortable officers at bedside states he feels better today paresthesias all resolved since this morning no other new neurologic deficits no chest pain, dyspnea, palpitations, dizziness no other symptoms Review of Systems Review of Systems: all noted and negative except for above Physical Exam Physical Exam: General- oriented x 3, not in distress, speaks in sentences with no effort or accessory muscle use Eyes- anicteric Neck- no JVD Lungs- clear breath sounds bilaterally, no rales/wheezes Heart- normal rate, regular rhythm; (+) gr 4/6 holosystolic murmur Abdomen- normal bowel sounds, nondistended, soft, nontender Extremities- no pretibial edema, no calf tenderness Neuro- alert, oriented x 3; no gross focal neurologic deficits Skin- warm & dry Results & Data Results & Data Vital Signs (Past 12 Hours) Vital Signs Temp Pulse Pulse Resp BP Pulse Ox O2 Del Method 04/15/25 15:13 76 18 177/92 H 93 Room Air 04/15/25 14:23 79 04/15/25 13:59 36.3 C L 77 18 171/90 H 95 Room Air 04/15/25 13:40 80 18 151/92 H 97 Room Air 04/15/25 13:25 77 18 143/101 H 100 Room Air 04/15/25 12:55 85 146/94 H 98 Room Air 04/15/25 07:30 Room Air 04/15/25 07:29 82 04/15/25 07:19 36.8 C 83 19 148/78 H 94 Room Air all noted and reviewed including below
[2025-04-16 06:12] LABS: Hematocrit (blood only) 41.6 % (42.0-52.0); Hemoglobin 14.7 g/dl (14.0-18.0); Immature Granulocytes # (auto) 0.04 K/uL (0.01-0.20); Immature Granulocytes % (auto) 0.4 %; Mean Corpuscular Hemoglobin 30.1 pg (25.0-34.0); Mean Corpuscular Volume 85.1 fL (80.0-100.0); Platelet Count 279 K/uL (130-400); RDW Standard Deviation 40.8 fL (36.4-46.3); Red Blood Count 4.89 M/uL (4.70-6.10); White Blood Count 10.26 K/ul (4.8-10.8)
[2025-04-16 08:27] VITALS: RESP 18
[2025-04-16 12:05] VITALS: BP 145/97; TEMP 99; O2SAT 96
--- NOTE | 2025-04-16 14:08 | Discharge Summary ---
Discharge Summary Date of Service April 16, 2025 Principal Dx & Hospital Course #1 = Principal Diagnosis (1) Stroke: per admitting service notes with addendum: Patient is a 79year old M, current inmate at [facility], with a past medical history of severe aortic stenosis, diabetes, hypothyroidism, schizoaffective disorder, hyperlipidemia, normal pressure hydrocephalus who presents to the emergency department with stroke-like symptoms. Patient reports having numbness to bilateral upper and lower extremities, different than baseline as he has had periodic numbness to lower extremities only in the past. He was accompanied by corrections officers, who report the patient has baseline cognitive impairments with thrusting tongue movements and a garbled speech. Patient has been on aspirin and statin outpatient. #Suspected Stroke 2/2 paraesthesia #Severe #Severe Bilateral Carotid Stenosis * Admit to PCU Tele for stroke workup * Presenting with stroke-like symptoms, mostly numbness to BUE; has tardive dyskinesia at baseline * Aspirin and Plavix given in ED * CT head showing unchanged cerebral atrophy and chronic small vessel ischemic disease; No definite acute pathology * CTA Neck showing severe stenosis of the left carotid bulb with approximately 80% narrowing; Approximately 50% diameter stenosis of the right carotid bulb and proximal right ICA; Moderate severity stenoses of the distal vertebral arteries bilaterally * H/O severe -> Echo 01/2025 showing LVEF 65-70%, mod concentric LV hypertrophy, RV mild dilated, AV with severe restricted leaflet motion with mod-severe * Will continue with stroke w/u-> MRI, Echo, Lipids, A1C pending * Continue statin * Will check ortho stats d/t upper extremity numbness * Will also check B12, TSH, Folate, RPR given risk * Cardiology consult ordered and awaiting further recs * Neuro consult ordered * PT/OT consult when appropriate 04/14 CT angio Neck: Impression: 1. Severe stenosis of the left carotid bulb with approximately 80% narrowing 2. Approximately 50% diameter stenosis of the right carotid bulb and proximal right ICA 3. Moderate severity stenoses of the distal vertebral arteries bilaterally ACT 112: Positive. There are findings on this exam that require communication between the performing entity and the patient following Patient Test Result Information Act ([place] ACT 112) guidelines. -- patient needs to be referred to Vascular Surgery as outpatient 04/15 Brain MRI negative for acute CVA IMPRESSION: No diffusion restriction to suggest acute cerebral ischemia. No evidence of acute intracranial hemorrhage. evaluated by Neurologist Dr. Mari: Recommend loading with Plavix 300 mg. Start aspirin 81 mg in addition to Plavix 75 mg and atorvastatin 80 mg for 21 days this can be switched later to aspirin 81 mg plus atorvastatin 80 mg Refer to neuroendovascular surgery as an outpatient within 2 weeks. Regarding his NPH the patient needs to be referred to NPH clinic for further PT OT evaluation, cognitive testing to determine if he would be eligible for diagnosis of NPH. Further history is being obtained from medical supervisors, to obtain more clinical history regarding his memory cognitive function, his gait and if there is any urinary incontinence. evaluated by Cardiology [facility] [place] Paige s/p T:EE "Transesophageal echocardiogram images analyzed. The study was somewhat technically limited with patient exhibiting deep respiratory excursions make it difficult to keep structures in frame. Left Ventricular Ejection Fraction = 55-60%. Moderate valvular aortic stenosis is present. Doppler velocities were obtained from the deep transgastric view, with peak CW velocity across the aortic valve of 3.5 m/s, mean gradient 27 mmHg. The aortic valve area by the 2D planimetry method yielded an aortic valve area= 1.2-1.4 cm Mild aortic regurgitation. With the admission of agitated saline contrast, a scant number of bubbles were noted to cross to the left circulation late consistent with the presence of a very mild extracardiac shunt for which no further workup is felt to be necessary for this." "Given the lack of clinical symptoms to suggest severe aortic stenosis and findings of moderate aortic stenosis on transesophageal echocardiogram, ongoing observation recommended. Recommend inpatient or outpatient vascular surgery evaluation regarding carotid stenosis, although like I am not certain that he is symptomatic from this. Continue aspirin, statin therapy." #Hypomagnesemia * Mag 1.4-> replaced 1gm x 2 * Will recheck with AM labs; resolved * EKG ok #Hyperlipidemia * Continue home statin #Diabetes Mellitus * SSI while inpatient * resume Metformin 04/17 as patient received IV Contrast * Accucheck ACHS; Goal 110-140 DVT Ppx: SCDs Code status: Full PCP: DAPHNIE [facility] Dispo: return to [facility] (2) Severe aortic stenosis: (3) Hypomagnesemia: (4) Hyperlipidemia: (5) Diabetes mellitus: Notes For Next Care Provider Medication Changes From Visit please refer to Medical Reconciliation Admission HPI Per Admitting Provider Patient is a 79year old M, current inmate at [facility], with a past medical history of severe aortic stenosis, diabetes, hypothyroidism, schizoaffective disorder, hyperlipidemia, normal pressure hydrocephalus who presents to the emergency department with stroke-like symptoms. Patient reports having numbness to bilateral upper and lower extremities, different than baseline as he has had periodic numbness to lower extremities only in the past. He was accompanied by corrections officers, who report the patient has baseline cognitive impairments with thrusting tongue movements and a garbled speech. Denies fever, chills, weight loss, weakness, headache, vision/hearing changes, chest pain, SOB, swelling, difficulty breathing, urinary concerns, N/V/D, joint swelling/pain, ambulation difficulty, skin rashes, lesions, bleeding, bruising. In the emergency department, patient was hemodynamically stable with no signs of infection. BP was initially elevated at 158/122 and trended down on it's own. Labs were mostly unremarkable. Mag 1.4 and replaced with [address] showed unchanged cerebral atrophy and chronic small vessel ischemic disease with no acute pathology. Neck CTA showed severe stenosis of the left carotid bulb with approximately 80% narrowing, approximately 50% diameter stenosis of the right carotid bulb and proximal right ICA, and moderate severity stenoses of the distal vertebral arteries bilaterally. Aspirin and plavix given in ED. No TNKase given. Patient was hospitalized 02/02/2025-02/03/2025 and found to have new aortic stenosis, Cardiology consulted with rec for no urgent need for TAVR and follow- up outpatient. ECHO from 01/2025 showing EF 65 to 70%. Left ventricle wall motion is normal. Moderate concentric LVH. Right ventricle is mild to moderately dilated. Right ventricle systolic function is normal. Aortic valve difficult to visualize but appears to be severely restricted leaflet motion consistent with moderate to severe aortic stenosis. Patient has been on aspirin and statin outpatient. History of present illness difficult to obtain, as patient was accompanied by corrections officers with minimal knowledge of patient's history or presenting illness. History obtained primarily from the patient and via hospitalization record. Admission Exam Per Admitting Provider Constitutional: WD/WN, vitals as above Eyes: PERRL, conjunctivae normal, anicteric sclerae ENMT: external ear and nose normal, oropharynx normal Neck: trachea midline, no thyromegaly Respiratory: normal respiratory effort, lungs clear to auscultation Cardiovascular: RRR, no murmur, no edema (systolic murmur noted ) Gastrointestinal (Abdomen): normal bowel sounds, soft, nontender, no hepatosplenomegaly Musculoskeletal: no cyanosis or clubbing, extremities motor strength 5/5 (Left humeral fracture, in sling) Skin: no rashes, warm and dry Neurologic: PERRL, EOMI, accommodation nl, no face palsy, no dysarthria Psychiatric: A+Ox3, euthymic affect Lymphatic: no cervical or axillary lymphadenopathy Discharge Exam General- oriented x 1-2, not in distress, speaks in sentences with no effort or accessory muscle use somewhat confused- baseline per officers at bedside Eyes- anicteric Neck- no JVD Lungs- clear breath sounds bilaterally, no rales/wheezes Heart- normal rate, regular rhythm; (+) holosystolic murmur gr4/6 Abdomen- normal bowel sounds, nondistended, soft, nontender Extremities- no pretibial edema, no calf tenderness Neuro- alert, oriented x 3; no gross focal neurologic deficits Skin- warm & dry Updated Medication List Medication Instructions Recorded Confirmed Type aspirin 81 mg tablet,delayed 81 mg PO HS 08/15/20 04/14/25 History release atorvastatin 40 mg tablet 40 mg PO HS 08/15/20 04/14/25 History calcium 600 mg (as 2 tab PO HS 08/15/20 04/14/25 History carbonate)-vitamin D3 10 mcg (400 unit) tablet glipizide 10 mg tablet 10 mg PO HS 08/15/20 04/14/25 History levothyroxine 50 mcg tablet 50 mcg PO HS 08/15/20 04/14/25 History metformin 1,000 mg tablet 1,000 mg PO HS 08/15/20 04/14/25 History acetaminophen 500 mg tablet 1,000 mg PO BID 02/02/25 04/14/25 History cholecalciferol (vitamin D3) 25 50 mcg PO DAILY 04/14/25 04/14/25 History mcg (1,000 unit) capsule (Vitamin D3) diclofenac sodium 50 mg 50 mg PO BID 04/14/25 04/14/25 History tablet,delayed release clopidogrel 75 mg tablet 75 mg PO QAM 20 days #20 tabs 04/16/25 Rx Hospital Stay Data Consultations 04/14/25 18:04 ED Decision to Admit Stat 04/14/25 18:13 ED Decision to Admit Stat 04/14/25 19:44 Consult Neurology Routine 04/14/25 21:43 Consult Cardiology Routine 04/15/25 11:51 Consult Anesthesiology Routine Procedures Performed Operation Date: 04/15/25 12:30 Actual Procedures p Echo Transesophageal - DO linnea Leblanc Echo Color Flow - DO linnea Leblanc Doppler Echo Limited/Follow Up - Jeremi Paige DO Diagnostic Imagining Performed Laboratory Results WBC 10.26 K/ul (4.8-10.8) 04/16/25 05:42 RBC 4.89 M/uL (4.70-6.10) 04/16/25 05:42 Hgb 14.7 g/dl (14.0-18.0) 04/16/25 05:42 POC Hgb 16.0 g/dl (14.0-18.0) 04/14/25 16:55 Hct 41.6 % (42.0-52.0) L 04/16/25 05:42 POC Hct 47 % (42-52) 04/14/25 16:55 MCV 85.1 fL (80.0-100.0) 04/16/25 05:42 MCH 30.1 pg (25.0-34.0) 04/16/25 05:42 MCHC 35.3 g/dL (32.0-36.0) 04/16/25 05:42 RDW Std Deviation 40.8 fL (36.4-46.3) 04/16/25 05:42 RDW Coeff of Adore 13.2 % (11.5-14.5) 04/16/25 05:42 Plt Count 279 K/uL (130-400) 04/16/25 05:42 MPV 9.1 fL (9.4-12.4) L 04/16/25 05:42 Immature Gran % (Auto) 0.4 % 04/16/25 05:42 Neut % (Auto) 71.0 % 04/16/25 05:42 Lymph % (Auto) 18.6 % 04/16/25 05:42 [place] % (Auto) 8.3 % 04/16/25 05:42 Eos % (Auto) 1.4 % 04/16/25 05:42 Baso % (Auto) 0.3 % 04/16/25 05:42 Neut # (Auto) 7.29 K/uL (1.40-6.50) H 04/16/25 05:42 Lymph # (Auto) 1.91 K/uL (1.20-3.40) 04/16/25 05:42 [place] # (Auto) 0.85 K/uL (0.11-0.59) H 04/16/25 05:42 Eos # (Auto) 0.14 K/uL (0.00-0.50) 04/16/25 05:42 Baso # (Auto) 0.03 K/uL (0.00-0.20) 04/16/25 05:42 Immature Gran # (Auto) 0.04 K/uL (0.01-0.20) 04/16/25 05:42 PT 11.4 Seconds (9.0-12.0) 04/14/25 16:50 INR 1.1 (0.9-1.1) 04/14/25 16:50 APTT 31 Seconds (21-31) 04/14/25 16:50 PTT Ratio 1.2 04/14/25 16:50 POC Sodium 133 mmol/L (135-144) L 04/14/25 16:55 Sodium 134 mmol/L (136-145) L 04/15/25 05:31 POC Potassium 4.0 mmol/L (3.3-5.0) 04/14/25 16:55 Potassium 3.8 mmol/L (3.5-5.1) 04/15/25 05:31 POC Chloride 98 mmol/L (101-112) L 04/14/25 16:55 Chloride 99 mmol/L (98-107) 04/15/25 05:31 Carbon Dioxide 28 mmol/L (21-32) 04/15/25 05:31 POC Total CO2 23 mmol/L (24-31) L 04/14/25 16:55 Anion Gap 7 (3-11) 04/15/25 05:31 POC Anion Gap 17.0 mmol/L (16-25) 04/14/25 16:55 POC BUN 8 mg/dl (7-18) 04/14/25 16:55 BUN 8 mg/dl (6-23) 04/15/25 05:31 Creatinine 0.74 mg/dl (0.6-1.4) 04/15/25 05:31 POC Creatinine 0.8 mg/dl (0.6-1.3) 04/14/25 16:55 Est Cr Clr Drug Dosing 88.7 ml/min 04/15/25 05:31 eGFR 92.17 04/15/25 05:31 BUN/Creatinine Ratio 10.8 (10-20) 04/15/25 05:31 Glucose 122 mg/dl (70-99(Fasting)) H 04/15/25 05:31 POC Glucose 109 mg/dl (70-99) H 04/16/25 12:03 POC Glucose (other) 144 mg/dl (70-99) H 04/14/25 16:55 Estimat Average Glucose 114 mg/dl 04/15/25 05:31 Hemoglobin A1c 5.6 % (4.5-5.6) 04/15/25 05:31 Calcium 9.8 mg/dl (8.6-10.3) 04/15/25 05:31 POC Ioniz Calcium Philip 1.24 mmol/l (1.12-1.32) 04/14/25 16:55 Phosphorus 3.3 mg/dl (2.5-4.9) 04/15/25 05:31 Magnesium 1.8 mg/dl (1.7-2.4) 04/15/25 05:31 Total Bilirubin 0.6 mg/dl (0.2-1.0) 04/14/25 16:50 AST 44 U/L (13-39) H 04/14/25 16:50 ALT 44 U/L (7-52) 04/14/25 16:50 Alkaline Phosphatase 139 U/L (34-104) H 04/14/25 16:50 Troponin I High Sens 9.6 pg/ml (0-20) 04/14/25 16:50 Total Protein 6.8 gm/dl (6.0-8.3) 04/14/25 16:50 Albumin 3.7 gm/dl (3.4-5.0) 04/14/25 16:50 Globulin 3.1 gm/dl (2.5-4.0) 04/14/25 16:50 Albumin/Globulin Ratio 1.2 (0.9-2) 04/14/25 16:50 Triglycerides 144 mg/dl (0-150) 04/15/25 05:31 Cholesterol 98 mg/dl (0-200) 04/15/25 05:31 LDL Cholesterol, Calc 38 mg/dl 04/15/25 05:31 VLDL Cholesterol, Calc 29 mg/dl (0-30) 04/15/25 05:31 HDL Cholesterol 31 mg/dl 04/15/25 05:31 Cholesterol/HDL Ratio 3.2 (0-5) 04/15/25 05:31 Vitamin B12 415 pg/ml (180-914) 04/14/25 16:50 Folate 6.37 ng/ml (>5.38) 04/14/25 16:50 TSH 5.217 uIu/ml (0.300-4.500) H 04/14/25 16:50 Free T4 1.18 ng/dl (0.61-1.60) 04/14/25 16:50 Nasal Screen MRSA (PCR) Positive (Negative) A 04/14/25 Unknown Treponema pallidum Ab Negative (Negative) 04/14/25 16:50 Blood Type A Positive 04/14/25 16:49 Antibody Screen NEGATIVE 04/14/25 16:49 Impressions Chest X-Ray 04/14/25 16:44 Chest radiograph, one view History: Stroke alert Comparison: None Findings: Single AP view of the chest performed. No focal consolidation or pleural effusion. No pneumothorax. The cardiomediastinal silhouette is within normal limits. Normal pulmonary vascularity. No evidence for lymphadenopathy. No visualized bony or soft tissue abnormality. Impression: Normal chest radiograph Electronically signed by Mor Snell 04-14-2025 5:[address] 04/14/25 16:44 Clinical History: Possible stroke Technique: Axial computed tomography images were obtained of the brain without intravenous contrast. Comparison is made to the prior CT dated 01/26/2025 Findings: There is unchanged cerebral atrophy, within expected limits for the patient's age. Areas of decreased attenuation are seen within the periventricular white matter, likely representing chronic small vessel ischemic disease. There is no definite sign of acute or old infarction. No intracranial hemorrhage is evident. No definite mass lesion is seen on this noncontrast examination. There is no midline shift or other form of herniation. No hydrocephalus is seen. No fracture is identified. The orbits and the visualized paranasal sinuses appear unremarkable. The mastoid air cells appear clear. Impression: 1. Unchanged cerebral atrophy and chronic small vessel ischemic disease 2. No definite acute pathology Electronically signed by Wayne Frazier 04-14-2025 5:56 PM Head CTA 04/14/25 16:44 Clinical history: Possible stroke Technique: Axial computed tomography images were obtained of the brain after the administration of intravenous contrast according to the CT angiogram protocol Findings: There is calcified plaque within the cavernous and supraclinoid segments of the internal carotid arteries bilaterally, without significant stenosis No definite stenosis or aneurysm is seen of the anterior, middle, or posterior cerebral artery circulations. The basilar artery appears normal Impression: No definite stenosis or aneurysm of the intracranial arteries Electronically signed by Wayne Frazier 04-14-2025 5:57 PM Neck CTA 04/14/25 16:44 Clinical history: Possible stroke Technique: Axial computed tomography images were obtained of the neck after the administration of intravenous contrast according to the CT angiogram protocol Findings: No stenosis is seen in the common carotid arteries bilaterally. There is an approximately 50% diameter stenosis of the right carotid bulb and proximal right internal carotid artery. There is a severe stenosis of the left carotid bulb with approximately 80% diameter narrowing. The remainder of the internal carotid arteries appear patent bilaterally. No stenosis of the external carotid arteries is seen There are moderate severity stenosis of the distal vertebral arteries bilaterally. The visualized thoracic aorta appears unremarkable There is multilevel degenerative disc disease and osteoarthritis of the cervical spine. Impression: 1. Severe stenosis of the left carotid bulb with approximately 80% narrowing 2. Approximately 50% diameter stenosis of the right carotid bulb and proximal right ICA 3. Moderate severity stenoses of the distal vertebral arteries bilaterally ACT 112: Positive. There are findings on this exam that require communication between the performing entity and the patient following Patient Test Result Information Act ([place] ACT 112) guidelines. Electronically signed by Wayne Frazier 04-14-2025 6:01 PM Brain MRI 04/14/25 18:56 Exam(s): MRI HEAD W/WO Contrast EXAM: MR Head Without and With Intravenous Contrast CLINICAL HISTORY: Reason for exam: stroke. TECHNIQUE: Magnetic resonance images of the head/brain without and with intravenous contrast in multiple planes. COMPARISON: CT, CTA 04/14/2025 FINDINGS: Brain: No diffusion restriction to suggest acute cerebral ischemia. No evidence of acute intracranial hemorrhage. Generalized parenchymal volume loss. Periventricular and deep cerebral white matter FLAIR signal hyperintensity consistent with chronic small-vessel ischemic change. No mass effect or midline shift. No intracranial mass or abnormal enhancement. Proximal intracranial flow voids appear normal. Ventricles: Unremarkable. No hydrocephalus. Bones/joints: Unremarkable. No acute fracture. Sinuses: Trace mucosal thickening in the paranasal sinuses. Mastoid air cells: Unremarkable as visualized. No mastoid effusion. Orbits: Lens replacements. IMPRESSION: No diffusion restriction to suggest acute cerebral ischemia. No evidence of acute intracranial hemorrhage. Electronically signed by: David Jensen M.D. 04/14/25 22:34 PM Pending Results Patient Have Any Pending Studies at Discharge: No Discharge Instructions Given to Patient (Per Discharging Provider) PLEASE REFER TO ACCOMPANYING HOSPITAL DISCHARGE SUMMARY FOR FURTHER DETAILS. Per Neurologist Dr. Mari: Start aspirin 81 mg in addition to Plavix 75 mg and atorvastatin 80 mg for 21 days this can be switched later to aspirin 81 mg plus atorvastatin 80 mg Refer to neuroendovascular surgery as an outpatient within 2 weeks. Regarding his NPH the patient needs to be referred to NPH clinic for further PT OT evaluation, cognitive testing to determine if he would be eligible for diagnosis of NPH. Total Time Total Time Spent Total Time Spent (In Minutes): 45 minutes
[2025-04-16 14:32] VITALS: PULSE 108
== END 2025-04-16 15:52 | DRG 92 ==
LOC: ED 16:33 → INTOOBSV 18:54 → 4W 18:54 → SUATTDRO 18:54 → 4W 20:25

== ENCOUNTER 2025-04-16 17:55 | Inpatient (IN) ==
--- NOTE | 2025-04-16 18:51 | Emergency Department Note ---
Impression & Plan Altered mental status, Hypoglycemia, Acute hypoxic respiratory failure ED Provider Note NAME: MALACHI [id number] SHANTE AGE: 79 SEX: M : 1945 ARRIVES VIA: Ambulance INFORMANT: Patient, ED PROVIDER(S): Andre Ba MD CHIEF COMPLAINT: Fall, unresponsive HPI: This is a 79-year-old male presenting after being found unresponsive at senior living. Patient was found unresponsive in the shower. This is a I witnessed event. Patient does not tell much history at this time. Staff at the senior living did not provide any history as well. Patient complains of no current chest pain, shortness of breath. He states he talking normally. There is reported history of hypoglycemia. EMS gave 1 amp of D50 which increased his blood sugar to 239. ROS: See above HPI for pertinent positives & negatives. A total of 10 systems reviewed and were otherwise negative. PAST MEDICAL HISTORY: See Below PAST SURGICAL HISTORY: See Below FAMILY HISTORY: See Below SOCIAL HISTORY: See Below HOME MEDICATIONS: See Below ALLERGIES: See Below VITALS: See Below PHYSICAL EXAMINATION: General: Chronically unwell appearing Head: Normocephalic and atraumatic Eyes: Normal inspection, extraocular muscles intact Ear, nose, throat: Normal external exam Neck: Normal range of motion Respiratory: lungs clear to auscultation bilaterally Cardiovascular: Regular rate/rhythm, no murmur GI: soft, nontender, no guarding or rebound Extremities: nontender, moves all extremities Neuro: Awake, alert, confused, no focal deficits, symmetric faces Skin: Warm, dry, and intact MEDICAL DECISION MAKING: This is a 79-year-old male presenting after found unresponsive. - Patient was discharged today from this hospital for stroke workup. - Currently patient is confused and having increased respiratory rate. He is hypoxic going for the nasal cannula. Glucose now is in the 200s after reported hypoglycemic episode via EMS - There is significant changes in lab work since this morning. Leukocytosis is now 25 up from 10. Electrolytes still within normal limits though there is an increased BUN. His troponin is elevated around 27. -Chest x-ray reveals mild congestion -CT head unrevealing - Will admit the patient for new episode of unresponsiveness, confusion, hypoxia, elevated troponin and leukocytosis. - care discussed with Dr. Aranda for admission Differential diagnosis: Stroke, seizures, ACS, PE Diagnostics interpreted by me: ECG: ECG independently interpreted by me with sinus tachycardia rate of 109, normal OR, normal QRS, normal QTc, no ST segment elevations consistent with STEMI criteria Cardiac Monitoring: An order was placed for continuous cardiac monitoring. The monitor shows a rate of 90 with sinus rhythm. Past Med/Surg History Problem List (Updated 04/17/25 @ 01:31 by Andre Ba MD) Acute hypoxic respiratory failure (Acute) Hypoglycemia (Acute) Altered mental status (Acute) Stroke-like symptoms Carotid artery disease without cerebral infarction Stroke Hypomagnesemia (Acute) Brain TIA (Acute) Closed left arm fracture Tachycardia Severe aortic stenosis Hypotension (Acute) Acute dyspnea (Acute) Medical History Hyperlipidemia Hypothyroidism NPH (normal pressure hydrocephalus) Diabetes mellitus Diabetes Schizoaffective disorder Social History Smoking Status: Unknown if ever smoked Second Hand Exposure: No; Do You Dip or Chew Tobacco: No; Hx Alcohol Use: No Hx Substance Use: No Preferred Language: Welsh Communication Ability: Effective Sales Officer Required: No Beliefs That Will Affect Care: None Current Living Situation: Other Current Living Situation Comment: [facility] Feels Safe at Home: Yes Assistive Devices: None Allergies Allergies Allergy/AdvReac Type Severity Reaction Status Date / Time No Known Allergies Allergy Verified 04/14/25 17:53 Home Meds Home Medications Medication Instructions Recorded Confirmed aspirin 81 mg tablet,delayed 81 mg PO HS 08/15/20 04/16/25 release calcium 600 mg (as 2 tab PO HS 08/15/20 04/16/25 carbonate)-vitamin D3 10 mcg (400 unit) tablet glipizide 10 mg tablet 10 mg PO HS 08/15/20 04/16/25 levothyroxine 50 mcg tablet 50 mcg PO HS 08/15/20 04/16/25 metformin 1,000 mg tablet 1,000 mg PO HS 08/15/20 04/16/25 acetaminophen 500 mg tablet 1,000 mg PO BID 02/02/25 04/16/25 cholecalciferol (vitamin D3) 25 50 mcg PO DAILY 04/14/25 04/16/25 mcg (1,000 unit) capsule (Vitamin D3) atorvastatin 80 mg tablet 80 mg PO HS 04/16/25 04/16/25 Previous Rx's Medication Instructions Recorded clopidogrel 75 mg tablet 75 mg PO QAM 20 days #20 tabs 04/16/25 Results & Data (ED) Vital Signs Vital Signs - 24 hr 04/16/25 18:01 04/16/25 18:01 04/16/25 18:01 Temperature 36.6 C Temperature Source Axillary Pulse Rate - Lying Pulse Rate - Sitting Pulse Rate 115 H Pulse Rate [Left Apical] Pulse Rate from SpO2 Sensor Respiratory Rate 20 Respiratory Effort / Characteristics Non-Labored Spontaneous Respiratory Depth Normal Respiratory Pattern Regular Blood Pressure - Lying Blood Pressure - Sitting Blood Pressure 103/70 Blood Pressure Mean 81 Pulse Oximetry 97 96 97 Oxygen Delivery Method Nasal Cannula Nasal Cannula Nasal Cannula Oxygen Flow Rate 4 4 4 Sepsis Recent Fever Within 48 Hours No Sepsis New/Unexplained Change in Mental Status N/A Sepsis Action Taken by Nursing No Action Required 04/16/25 18:13 04/16/25 19:17 04/16/25 19:30 Temperature Temperature Source Pulse Rate - Lying Pulse Rate - Sitting Pulse Rate 121 H 98 H 97 H Pulse Rate [Left Apical] Pulse Rate from SpO2 Sensor Respiratory Rate 24 20 Respiratory Effort / Characteristics Respiratory Depth Respiratory Pattern Blood Pressure - Lying Blood Pressure - Sitting Blood Pressure 127/88 143/106 H Blood Pressure Mean 101 119 Pulse Oximetry 97 99 Oxygen Delivery Method Nasal Cannula Oxygen Flow Rate 2 Sepsis Recent Fever Within 48 Hours Sepsis New/Unexplained Change in Mental Status Sepsis Action Taken by Nursing 04/16/25 20:31 04/16/25 20:54 04/16/25 21:18 Temperature Temperature Source Pulse Rate - Lying Pulse Rate - Sitting Pulse Rate 58 L 99 H Pulse Rate [Left Apical] 98 H Pulse Rate from SpO2 Sensor Respiratory Rate 24 28 H Respiratory Effort / Characteristics Spontaneous Short of Breath Respiratory Depth Shallow Respiratory Pattern Rapid/Shallow Blood Pressure - Lying Blood Pressure - Sitting Blood Pressure 155/86 H 117/88 Blood Pressure Mean 93 97 Pulse Oximetry 98 99 100 Oxygen Delivery Method Nasal Cannula Nasal Cannula Oxygen Flow Rate 2 4 4 Sepsis Recent Fever Within 48 Hours Sepsis New/Unexplained Change in Mental Status Sepsis Action Taken by Nursing 04/16/25 21:30 04/16/25 21:48 04/16/25 22:00 Temperature Temperature Source Pulse Rate - Lying Pulse Rate - Sitting Pulse Rate 96 H 96 H 94 H Pulse Rate [Left Apical] Pulse Rate from SpO2 Sensor Respiratory Rate 26 H 26 H Respiratory Effort / Characteristics Respiratory Depth Respiratory Pattern Blood Pressure - Lying Blood Pressure - Sitting Blood Pressure 123/89 127/90 Blood Pressure Mean 100 102 Pulse Oximetry 96 98 Oxygen Delivery Method Nasal Cannula Nasal Cannula Oxygen Flow Rate 4 4 Sepsis Recent Fever Within 48 Hours Sepsis New/Unexplained Change in Mental Status Sepsis Action Taken by Nursing 04/16/25 22:01 04/16/25 23:03 04/16/25 23:30 Temperature Temperature Source Pulse Rate - Lying Pulse Rate - Sitting Pulse Rate 94 H 90 92 H Pulse Rate [Left Apical] Pulse Rate from SpO2 Sensor Respiratory Rate 26 H 20 Respiratory Effort / Characteristics Respiratory Depth Respiratory Pattern Blood Pressure - Lying Blood Pressure - Sitting Blood Pressure 138/91 138/93 Blood Pressure Mean 106 118 Pulse Oximetry 97 100 Oxygen Delivery Method Nasal Cannula Oxygen Flow Rate 4 Sepsis Recent Fever Within 48 Hours Sepsis New/Unexplained Change in Mental Status Sepsis Action Taken by Nursing 04/17/25 00:00 04/17/25 00:18 04/17/25 00:30 Temperature Temperature Source Pulse Rate - Lying 91 H Pulse Rate - Sitting 100 H Pulse Rate 86 91 H Pulse Rate [Left Apical] Pulse Rate from SpO2 Sensor Respiratory Rate 21 19 Respiratory Effort / Characteristics Respiratory Depth Respiratory Pattern Blood Pressure - Lying 149/88 H Blood Pressure - Sitting 157/101 H Blood Pressure 149/88 H 156/93 H Blood Pressure Mean 109 114 Pulse Oximetry 100 98 Oxygen Delivery Method Oxygen Flow Rate Sepsis Recent Fever Within 48 Hours Sepsis New/Unexplained Change in Mental Status Sepsis Action Taken by Nursing 04/17/25 01:00 04/17/25 01:03 Temperature Temperature Source Pulse Rate - Lying Pulse Rate - Sitting Pulse Rate 90 90 Pulse Rate [Left Apical] Pulse Rate from SpO2 Sensor 90 Respiratory Rate 25 H 25 H Respiratory Effort / Characteristics Respiratory Depth Respiratory Pattern Blood Pressure - Lying Blood Pressure - Sitting Blood Pressure 157/96 H Blood Pressure Mean 112 Pulse Oximetry 96 96 Oxygen Delivery Method Oxygen Flow Rate Sepsis Recent Fever Within 48 Hours Sepsis New/Unexplained Change in Mental Status Sepsis Action Taken by Nursing Laboratory Data 04/16/25 18:18 04/16/25 18:18 Lab Results 04/16/25 04/16/25 04/16/25 Range/Units 18:02 18:18 18:25 WBC 25.11 H D (4.8-10.8) K/ul RBC 4.87 (4.70-6.10) M/uL Hgb 14.4 (14.0-18.0) g/dl POC Hgb 14.6 (14.0-18.0) g/dl Hct 41.6 L (42.0-52.0) % POC Hct 43 (42-52) % MCV 85.4 (80.0-100.0) fL MCH 29.6 (25.0-34.0) pg MCHC 34.6 (32.0-36.0) g/dL RDW Std Deviation 41.1 (36.4-46.3) fL RDW Coeff of Adore 13.2 (11.5-14.5) % Plt Count 336 (130-400) K/uL MPV 9.3 L (9.4-12.4) fL Immature Gran % (Auto) 1.2 % Neut % (Auto) 89.5 % Lymph % (Auto) 3.7 % [place] % (Auto) 5.3 % Eos % (Auto) 0.1 % Baso % (Auto) 0.2 % Neut # (Auto) 22.46 H (1.40-6.50) K/uL Lymph # (Auto) 0.94 L (1.20-3.40) K/uL [place] # (Auto) 1.34 H (0.11-0.59) K/uL Eos # (Auto) 0.02 (0.00-0.50) K/uL Baso # (Auto) 0.05 (0.00-0.20) K/uL Immature Gran # (Auto) 0.30 H (0.01-0.20) K/uL APTT (21-31) Seconds PTT Ratio VBG pH (7.36-7.41) VBG pCO2 (38-50) mmHg VBG pO2 mmHg VBG HCO3 mmol/L VBG O2 Saturation % VBG Base Excess mEq/L POC Sodium 135 (135-144) mmol/L Sodium 134 L (136-145) mmol/L POC Potassium 4.3 (3.3-5.0) mmol/L Potassium 4.2 (3.5-5.1) mmol/L POC Chloride 104 (101-112) mmol/L Chloride 102 (98-107) mmol/L Carbon Dioxide 21 (21-32) mmol/L POC Total CO2 19 L (24-31) mmol/L Anion Gap 11 (3-11) POC Anion Gap 18.0 (16-25) mmol/L POC BUN 31 H (7-18) mg/dl BUN 30 H D (6-23) mg/dl Creatinine 1.08 D (0.6-1.4) mg/dl POC Creatinine 1.1 (0.6-1.3) mg/dl Est Cr Clr Drug Dosing 60.9 ml/min eGFR 69.81 BUN/Creatinine Ratio 27.8 H (10-20) Glucose 164 H (70-99(Fasting)) mg/dl POC Glucose 200 H (70-99) mg/dl POC Glucose (other) 161 H (70-99) mg/dl Lactate 4.4 H* (0.4-2.0) mmol/L Calcium 9.8 (8.6-10.3) mg/dl POC Ioniz Calcium Philip 1.34 H (1.12-1.32) mmol/l Magnesium (1.7-2.4) mg/dl Total Bilirubin 0.6 (0.2-1.0) mg/dl AST 27 (13-39) U/L ALT 38 (7-52) U/L Alkaline Phosphatase 121 H (34-104) U/L Total Creatine Kinase (30-223) U/L Troponin I High Sens 26.9 H (0-20) pg/ml B-Natriuretic Peptide (0-100) pg/ml Total Protein 6.5 (6.0-8.3) gm/dl Albumin 3.4 (3.4-5.0) gm/dl Globulin 3.1 (2.5-4.0) gm/dl Albumin/Globulin Ratio 1.1 (0.9-2) Procalcitonin (0-0.5) ng/ml TSH 4.347 (0.300-4.500) uIu/ml Urine Color Urine Appearance (Clear) Urine pH (4.5-7.5) Ur Specific [place] (1.000-1.030) Urine Protein (Negative) Urine Glucose (UA) (Negative) Urine Ketones (Negative) Urine Blood (Negative) Urine Nitrite (Negative) Urine Bilirubin (Negative) Urine Urobilinogen (Negative) Ur Leukocyte Esterase (Negative) Urine Comment 04/16/25 04/16/25 04/16/25 Range/Units 18:52 19:15 19:21 WBC (4.8-10.8) K/ul RBC (4.70-6.10) M/uL Hgb (14.0-18.0) g/dl POC Hgb (14.0-18.0) g/dl Hct (42.0-52.0) % POC Hct (42-52) % MCV (80.0-100.0) fL MCH (25.0-34.0) pg MCHC (32.0-36.0) g/dL RDW Std Deviation (36.4-46.3) fL RDW Coeff of Adore (11.5-14.5) % Plt Count (130-400) K/uL MPV (9.4-12.4) fL Immature Gran % (Auto) % Neut % (Auto) % Lymph % (Auto) % [place] % (Auto) % Eos % (Auto) % Baso % (Auto) % Neut # (Auto) (1.40-6.50) K/uL Lymph # (Auto) (1.20-3.40) K/uL [place] # (Auto) (0.11-0.59) K/uL Eos # (Auto) (0.00-0.50) K/uL Baso # (Auto) (0.00-0.20) K/uL Immature Gran # (Auto) (0.01-0.20) K/uL APTT (21-31) Seconds PTT Ratio VBG pH 7.40 (7.36-7.41) VBG pCO2 39 (38-50) mmHg VBG pO2 29 mmHg VBG HCO3 24 mmol/L VBG O2 Saturation < 60.0 % VBG Base Excess -0.5 mEq/L POC Sodium (135-144) mmol/L Sodium (136-145) mmol/L POC Potassium (3.3-5.0) mmol/L Potassium (3.5-5.1) mmol/L POC Chloride (101-112) mmol/L Chloride (98-107) mmol/L Carbon Dioxide (21-32) mmol/L POC Total CO2 (24-31) mmol/L Anion Gap (3-11) POC Anion Gap (16-25) mmol/L POC BUN (7-18) mg/dl BUN (6-23) mg/dl Creatinine (0.6-1.4) mg/dl POC Creatinine (0.6-1.3) mg/dl Est Cr Clr Drug Dosing ml/min eGFR BUN/Creatinine Ratio (10-20) Glucose (70-99(Fasting)) mg/dl POC Glucose 138 H 120 H (70-99) mg/dl POC Glucose (other) (70-99) mg/dl Lactate (0.4-2.0) mmol/L Calcium (8.6-10.3) mg/dl POC Ioniz Calcium Philip (1.12-1.32) mmol/l Magnesium (1.7-2.4) mg/dl Total Bilirubin (0.2-1.0) mg/dl AST (13-39) U/L ALT (7-52) U/L Alkaline Phosphatase (34-104) U/L Total Creatine Kinase (30-223) U/L Troponin I High Sens (0-20) pg/ml B-Natriuretic Peptide (0-100) pg/ml Total Protein (6.0-8.3) gm/dl Albumin (3.4-5.0) gm/dl Globulin (2.5-4.0) gm/dl Albumin/Globulin Ratio (0.9-2) Procalcitonin (0-0.5) ng/ml TSH (0.300-4.500) uIu/ml Urine Color Urine Appearance (Clear) Urine pH (4.5-7.5) Ur Specific [place] (1.000-1.030) Urine Protein (Negative) Urine Glucose (UA) (Negative) Urine Ketones (Negative) Urine Blood (Negative) Urine Nitrite (Negative) Urine Bilirubin (Negative) Urine Urobilinogen (Negative) Ur Leukocyte Esterase (Negative) Urine Comment 04/16/25 04/16/25 04/16/25 Range/Units 19:56 20:05 20:19 WBC (4.8-10.8) K/ul RBC (4.70-6.10) M/uL Hgb (14.0-18.0) g/dl POC Hgb (14.0-18.0) g/dl Hct (42.0-52.0) % POC Hct (42-52) % MCV (80.0-100.0) fL MCH (25.0-34.0) pg MCHC (32.0-36.0) g/dL RDW Std Deviation (36.4-46.3) fL RDW Coeff of Adore (11.5-14.5) % Plt Count (130-400) K/uL MPV (9.4-12.4) fL Immature Gran % (Auto) % Neut % (Auto) % Lymph % (Auto) % [place] % (Auto) % Eos % (Auto) % Baso % (Auto) % Neut # (Auto) (1.40-6.50) K/uL Lymph # (Auto) (1.20-3.40) K/uL [place] # (Auto) (0.11-0.59) K/uL Eos # (Auto) (0.00-0.50) K/uL Baso # (Auto) (0.00-0.20) K/uL Immature Gran # (Auto) (0.01-0.20) K/uL APTT (21-31) Seconds PTT Ratio VBG pH (7.36-7.41) VBG pCO2 (38-50) mmHg VBG pO2 mmHg VBG HCO3 mmol/L VBG O2 Saturation % VBG Base Excess mEq/L POC Sodium (135-144) mmol/L Sodium (136-145) mmol/L POC Potassium (3.3-5.0) mmol/L Potassium (3.5-5.1) mmol/L POC Chloride (101-112) mmol/L Chloride (98-107) mmol/L Carbon Dioxide (21-32) mmol/L POC Total CO2 (24-31) mmol/L Anion Gap (3-11) POC Anion Gap (16-25) mmol/L POC BUN (7-18) mg/dl BUN (6-23) mg/dl Creatinine (0.6-1.4) mg/dl POC Creatinine (0.6-1.3) mg/dl Est Cr Clr Drug Dosing ml/min eGFR BUN/Creatinine Ratio (10-20) Glucose (70-99(Fasting)) mg/dl POC Glucose 121 H (70-99) mg/dl POC Glucose (other) (70-99) mg/dl Lactate 1.9 (0.4-2.0) mmol/L Calcium (8.6-10.3) mg/dl POC Ioniz Calcium Philip (1.12-1.32) mmol/l Magnesium 1.5 L (1.7-2.4) mg/dl Total Bilirubin (0.2-1.0) mg/dl AST (13-39) U/L ALT (7-52) U/L Alkaline Phosphatase (34-104) U/L Total Creatine Kinase 119 (30-223) U/L Troponin I High Sens 36.5 H (0-20) pg/ml B-Natriuretic Peptide (0-100) pg/ml Total Protein (6.0-8.3) gm/dl Albumin (3.4-5.0) gm/dl Globulin (2.5-4.0) gm/dl Albumin/Globulin Ratio (0.9-2) Procalcitonin (0-0.5) ng/ml TSH (0.300-4.500) uIu/ml Urine Color Yellow Urine Appearance Clear (Clear) Urine pH 5.5 (4.5-7.5) Ur Specific [place] 1.024 (1.000-1.030) Urine Protein Negative (Negative) Urine Glucose (UA) Negative (Negative) Urine Ketones Trace H (Negative) Urine Blood Negative (Negative) Urine Nitrite Negative (Negative) Urine Bilirubin Negative (Negative) Urine Urobilinogen Negative (Negative) Ur Leukocyte Esterase Negative (Negative) Urine Comment 04/16/25 Range/Units 20:23 WBC (4.8-10.8) K/ul RBC (4.70-6.10) M/uL Hgb (14.0-18.0) g/dl POC Hgb (14.0-18.0) g/dl Hct (42.0-52.0) % POC Hct (42-52) % MCV (80.0-100.0) fL MCH (25.0-34.0) pg MCHC (32.0-36.0) g/dL RDW Std Deviation (36.4-46.3) fL RDW Coeff of Adore (11.5-14.5) % Plt Count (130-400) K/uL MPV (9.4-12.4) fL Immature Gran % (Auto) % Neut % (Auto) % Lymph % (Auto) % [place] % (Auto) % Eos % (Auto) % Baso % (Auto) % Neut # (Auto) (1.40-6.50) K/uL Lymph # (Auto) (1.20-3.40) K/uL [place] # (Auto) (0.11-0.59) K/uL Eos # (Auto) (0.00-0.50) K/uL Baso # (Auto) (0.00-0.20) K/uL Immature Gran # (Auto) (0.01-0.20) K/uL APTT 28 (21-31) Seconds PTT Ratio 1.0 VBG pH (7.36-7.41) VBG pCO2 (38-50) mmHg VBG pO2 mmHg VBG HCO3 mmol/L VBG O2 Saturation % VBG Base Excess mEq/L POC Sodium (135-144) mmol/L Sodium (136-145) mmol/L POC Potassium (3.3-5.0) mmol/L Potassium (3.5-5.1) mmol/L POC Chloride (101-112) mmol/L Chloride (98-107) mmol/L Carbon Dioxide (21-32) mmol/L POC Total CO2 (24-31) mmol/L Anion Gap (3-11) POC Anion Gap (16-25) mmol/L POC BUN (7-18) mg/dl BUN (6-23) mg/dl Creatinine (0.6-1.4) mg/dl POC Creatinine (0.6-1.3) mg/dl Est Cr Clr Drug Dosing ml/min eGFR BUN/Creatinine Ratio (10-20) Glucose (70-99(Fasting)) mg/dl POC Glucose (70-99) mg/dl POC Glucose (other) (70-99) mg/dl Lactate (0.4-2.0) mmol/L Calcium (8.6-10.3) mg/dl POC Ioniz Calcium Philip (1.12-1.32) mmol/l Magnesium (1.7-2.4) mg/dl Total Bilirubin (0.2-1.0) mg/dl AST (13-39) U/L ALT (7-52) U/L Alkaline Phosphatase (34-104) U/L Total Creatine Kinase (30-223) U/L Troponin I High Sens (0-20) pg/ml B-Natriuretic Peptide 59 (0-100) pg/ml Total Protein (6.0-8.3) gm/dl Albumin (3.4-5.0) gm/dl Globulin (2.5-4.0) gm/dl Albumin/Globulin Ratio (0.9-2) Procalcitonin 0.27 (0-0.5) ng/ml TSH (0.300-4.500) uIu/ml Urine Color Urine Appearance (Clear) Urine pH (4.5-7.5) Ur Specific [place] (1.000-1.030) Urine Protein (Negative) Urine Glucose (UA) (Negative) Urine Ketones (Negative) Urine Blood (Negative) Urine Nitrite (Negative) Urine Bilirubin (Negative) Urine Urobilinogen (Negative) Ur Leukocyte Esterase (Negative) Urine Comment Administered Medications Magnesium Sulfate/Dextrose (Magnesium Sulfate / D5w) 1 gm in 100 mls @ 50 mls/hr IV Q2H JOSE Stop: 04/17/25 01:29 Last Admin: 04/17/25 00:45 Dose: 50 mls/hr Documented By: Infusion: 04/17/25 00:39 Dose: Infused Documented By: Admin: 04/16/25 22:39 Dose: 50 mls/hr Documented By: OXANA Discontinued Medications Sodium Chloride (Nss) 1,000 mls @ 999 mls/hr IV .Q1H1M JOSE Stop: 04/16/25 19:15 Last Infusion: 04/16/25 20:50 Dose: Infused Documented By: Admin: 04/16/25 19:02 Dose: 999 mls/hr Documented By: BETH Albumin Human (Albumin 25%) 25 gm in 100 mls @ 50 mls/hr IV ONE ONE Stop: 04/16/25 22:18 Last Infusion: 04/16/25 22:44 Dose: Infused Documented By: Admin: 04/16/25 20:50 Dose: 50 mls/hr Documented By: Ioversol (Optiray 320 125ml) 115 ml IV ONCE ONE Stop: 04/16/25 21:42 Last Admin: 04/16/25 21:41 Dose: 115 ml Documented By: SHANE Imaging Data Radiologist's Impression: Chest X-Ray 04/16/25 18:01 EXAM: Portable AP chest radiograph TECHNIQUE: AP portable radiograph of the chest was obtained. INDICATION: Shortness of breath Comparison: Chest radiograph from April 14, 2025. FINDINGS: LINES and TUBES: None CARDIOVASCULAR: Cardiac silhouette is stably enlarged in size. Atherosclerosis of the thoracic aorta. LUNGS/PLEURA: No focal consolidation identified. Mild pulmonary vascular congestion and chronic interstitial lung changes are similar. Bibasilar atelectasis again seen. No significant pleural fluid. No discernible pneumothorax. OSSEOUS/OTHER: No displaced acute osseous process identified. IMPRESSION: Mild congestive changes of the cardiovascular system that appear similar to the previous radiograph. Electronically signed by Bobby Zhao 04-16-2025 6:[address] 04/16/25 18:01 CT head without contrast History: Confusion Comparison: 04/14/2025 Technique: Using multidetector thin collimation helical acquisition technique, axial, coronal and sagittal CT images from the skull base to the vertex were obtained without intravenous contrast. Dose reduction techniques were achieved by using automatic exposure control and/or adjustment of mA and/or kV according to patient size and/or use of iterative reconstruction technique. Findings: No intracranial hemorrhage, mass-effect, or midline shift. The ventricles are proportionate to the cerebral sulci. The [place] to white matter differentiation of the cerebral hemispheres is preserved. The basal cisterns are patent. There is moderate cerebral atrophy. Moderate, patchy low-attenuation changes in the white matter, most suggestive of sequelae of chronic small vessel ischemic disease. The visualized paranasal sinuses are clear. Mastoid air cells are clear. Impression: No acute intracranial pathology. Electronically signed by Mor Snell 04-16-2025 6:52 PM Chest CTA 04/16/25 21:11 Exam(s): CTA CHEST IV Amt: 115 ml optiray 320 EXAM: CT Angiography Chest With Intravenous Contrast CLINICAL HISTORY: Reason for exam: transient hypoxemia. TECHNIQUE: Axial computed tomographic angiography images of the chest with intravenous contrast. CTDI is 36.17 mGy and DLP is 1183.53 mGy-cm. Automated exposure control was utilized for the study. A dose lowering technique was utilized adhering to the principles of ALARA. MIP reconstructed images were created and reviewed. COMPARISON: 02/02/2025 FINDINGS: Limitations: Motion. Pulmonary arteries: Adequate pulmonary artery opacification. Normal caliber main pulmonary artery. No evidence of acute pulmonary embolism to the proximal segmental level. More distal emboli cannot be excluded due to respiratory motion. Aorta: No aortic aneurysm or dissection. Lungs: No airspace consolidation or pulmonary mass. Pleural space: No pleural significant effusion. No pneumothorax. Heart: Coronary artery atherosclerosis. No cardiomegaly or pericardial effusion. Bones/joints: Osteopenia. Disc degeneration in the thoracic spine. Mild chronic compression deformities at T6 and T12. No acute fracture or dislocation. Soft tissues: Unremarkable. Lymph nodes: No enlarged lymph nodes. Liver: Calcified hepatic granuloma. Gallbladder and bile ducts: Cholecystectomy. Spleen: Calcified splenic granulomata. IMPRESSION: No evidence of acute pulmonary embolism to the proximal segmental level. More distal emboli cannot be excluded due to respiratory motion. Electronically signed by: David Jensen M.D. 04/16/25 23:41 PM Discharge Plan Visit Data Chief Complaint: Lethargic ED Provider: Andre Ba Discharge Problem: Altered mental status, Hypoglycemia, Acute hypoxic respiratory failure Patient Disposition: Admitted As Inpatient Condition: Serious Prescriptions Prescriptions: No Action aspirin 81 mg Tablet,Delayed Release (Dr/Ec) 81 mg PO HS calcium carbonate-vitamin D3 600 mg(1,500mg) -400 unit Tablet 2 tab PO HS glipizide 10 mg Tablet 10 mg PO HS levothyroxine 50 mcg Tablet 50 mcg PO HS metformin 1,000 mg Tablet 1,000 mg PO HS Hold Instructions: Resume on 04/17/25. acetaminophen 500 mg Tablet 1,000 mg PO BID atorvastatin 80 mg Tablet 80 mg PO HS cholecalciferol (vitamin D3) [Vitamin D3] 25 mcg (1,000 unit) Capsule 50 mcg PO DAILY clopidogrel 75 mg Tablet 75 mg PO QAM 20 Days Qty: 20 0RF Referrals Referrals: Dora ELLER [Primary Care Provider] - Discharge Problem: Altered mental status Qualifiers: Altered mental status type: disorientation Qualified Code(s): R41.0 - Disorientation, unspecified
[2025-04-16] MEDS: SODIUM CHLORIDE 0.9% 1,000 ML IV SCH (19:02)
[2025-04-16 19:10] LABS: Hematocrit (blood only) 41.6 % (42.0-52.0); Hemoglobin 14.4 g/dl (14.0-18.0); Immature Granulocytes # (auto) 0.30 K/uL (0.01-0.20); Immature Granulocytes % (auto) 1.2 %; Mean Corpuscular Hemoglobin 29.6 pg (25.0-34.0); Mean Corpuscular Volume 85.4 fL (80.0-100.0); Platelet Count 336 K/uL (130-400); RDW Standard Deviation 41.1 fL (36.4-46.3); Red Blood Count 4.87 M/uL (4.70-6.10); White Blood Count 25.11 K/ul (4.8-10.8)
[2025-04-16 19:18] LABS: Alanine Aminotransferase 38.0 U/L (7-52); Albumin Globulin Ratio 1.1 (0.9-2); Alkaline Phosphatase 121.0 U/L (34-104); Anion Gap 11.0 (3-11); Bilirubin,Total 0.6 mg/dl (0.2-1.0); Blood Urea Nitrogen 30.0 mg/dl (6-23); Calcium 9.8 mg/dl (8.6-10.3); Carbon Dioxide 21.0 mmol/L (21-32); Chloride 102.0 mmol/L (98-107); Creatinine Clr Calc Pharmacy 60.9 ml/min; Globulin 3.1 gm/dl (2.5-4.0); Glucose 164.0 mg/dl (70-99(Fasting)); Potassium 4.2 mmol/L (3.5-5.1); Sodium 134.0 mmol/L (136-145); Total Protein 6.5 gm/dl (6.0-8.3)
[2025-04-16 19:36] LABS: Base Excess VBG -0.5 mEq/L; HCO3 VBG 24 mmol/L; Oxygen Saturation VBG < 60.0 %; PCO2 VBG 39 mmHg (38-50); PO2 VBG 29 mmHg; pH VBG 7.40 (7.36-7.41)
[2025-04-16 19:37] LABS: Thyroid Stimulating Hormone 4.347 uIu/ml (0.300-4.500)
[2025-04-16 20:16] LABS: Appearance Urine Clear (Clear); Glucose Urine UA Negative (Negative)
--- NOTE | 2025-04-16 20:22 | History & Physical Report ---
Date of Service April 16, 2025 Assessment & Plan (1) Altered mental status: Plan: Assessment and plan below following discussion of case with ED provider and reviewing patient history/pertinent normal/abnormal diagnostic test results. Transient unresponsiveness From hypoglycemia, DM2 on oral medications, well-controlled as of recent hemoglobin A1c of 5.6 this month Troponin elevation secondary to illness and elevated BP valvular heart disease (moderate /mild AR) hyperlipidemia, on statin Rx PVD, carotid artery disease on imaging from last confinement, patient to follow- up with vascular surgery hx CVA, on antiplatelet Rx hypothyroidism, euthyroid as of today's TSH schizoaffective disorder/mood disorder, not on maintenance medications Hypomagnesemia Admit to med/tele DC glipizide on discharge Follow troponin Replace electrolytes ISS BG goal 110-140, carb count coverage PT OT eval prior to discharge DVT prophylaxis. Lovenox subcu Full code Text document was generated using [employer] voice recognition software. It may contain grammatical or spelling errors. Kindly contact undersigned for clarification of any documentation item in question. History of Present Illness Chief Complaint: Unresponsiveness as per records I do not know as per patient Primary Care Provider: [facility] History obtained from patient and records. Medical history significant for valvular heart disease (moderate /mild AR), hypertension, hyperlipidemia, PVD, CVA, possible NPH, DM2 on oral medications, hypothyroidism, BPH, schizoaffective disorder, mood disorder. Recent confinement April 14 through 2024 for suspected CVA presenting as numbness of the extremities. TIA versus NPH as per Neurology evaluation. Brain MRI unremarkable. CT angio neck showed left ICA stenosis 80%, 50% stenosis right ICA. [facility] to [facility] today on dual antiplatelet Rx. Outpatient neuroendovascular consultation recommended after 2 weeks. Patient found unresponsive at the shower today. Unwitnessed event. Patient later woke up, not aware of events. Patient denies headache, chest pain, SOB, abdominal pain. Hypoglycemia as per records. Patient given 1 amp D50 water by EMS. BGs later noted to be 239. Patient brought to ER for evaluation. 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 Allergies Allergy/AdvReac Type Severity Reaction Status Date / Time No Known Allergies Allergy Verified 04/14/25 17:53 Home Medications Medication Instructions Recorded Confirmed Type aspirin 81 mg tablet,delayed 81 mg PO HS 08/15/20 04/16/25 History release calcium 600 mg (as 2 tab PO HS 08/15/20 04/16/25 History carbonate)-vitamin D3 10 mcg (400 unit) tablet glipizide 10 mg tablet 10 mg PO HS 08/15/20 04/16/25 History levothyroxine 50 mcg tablet 50 mcg PO HS 08/15/20 04/16/25 History metformin 1,000 mg tablet 1,000 mg PO HS 08/15/20 04/16/25 History acetaminophen 500 mg tablet 1,000 mg PO BID 02/02/25 04/16/25 History cholecalciferol (vitamin D3) 25 50 mcg PO DAILY 04/14/25 04/16/25 History mcg (1,000 unit) capsule (Vitamin D3) atorvastatin 80 mg tablet 80 mg PO HS 04/16/25 04/16/25 History clopidogrel 75 mg tablet 75 mg PO QAM 20 days #20 tabs 04/16/25 04/16/25 Rx Past Med/Surg History Problem List (Updated 04/17/25 @ 01:31 by Andre Ba MD) Acute hypoxic respiratory failure (Acute) Hypoglycemia (Acute) Altered mental status (Acute) Stroke-like symptoms Carotid artery disease without cerebral infarction Stroke Hypomagnesemia (Acute) Brain TIA (Acute) Closed left arm fracture Tachycardia Severe aortic stenosis Hypotension (Acute) Acute dyspnea (Acute) Medical History Hyperlipidemia Hypothyroidism NPH (normal pressure hydrocephalus) Diabetes mellitus Diabetes Schizoaffective disorder Social History Smoking Status: Never smoker Second Hand Exposure: No; Do You Dip or Chew Tobacco: No; Hx Alcohol Use: No Hx Substance Use: No Preferred Language: Khmer Communication Ability: Impaired Veterinary Pathologist Required: No Beliefs That Will Affect Care: None Current Living Situation: Other Current Living Situation Comment: [facility] Feels Safe at Home: Yes Assistive Devices: None Review of Systems Review of Systems: As per HPI, all other systems reviewed and negative Physical Exam Physical Exam: GENERAL: Slightly uncomfortable, obese, episodic tachypnea SKIN: Normal color, warm HEENT: Partial alopecia, pink palpebral conjunctivae, no ptosis, dry buccal mucosa NECK : Supple, no tenderness CHEST : Decreased breath sounds, no tenderness HEART : RRR, systolic murmur ABDOMEN: Some distention, nontender EXTREMITIES : No LE swelling/tenderness, palpable pulses, no other conspicuous deformities noted NEUROLOGIC : Coherent, no facial asymmetry, gait and stance not assessed Results & Data Results & Data Vital Signs (Past 12 Hours) Vital Signs Temp Pulse Resp BP Pulse Ox O2 Del Method O2 Flow Rate 04/16/25 19:30 97 H 20 143/106 H 99 04/16/25 19:17 98 H 24 127/88 97 Nasal Cannula 2 04/16/25 18:13 121 H 04/16/25 18:01 97 Nasal Cannula 4 04/16/25 18:01 96 Nasal Cannula 4 04/16/25 18:01 36.6 C 115 H 20 103/70 97 Nasal Cannula 4 Laboratory Results Laboratory Results WBC 25.11 K/ul (4.8-10.8) H D 04/16/25 18:18 RBC 4.87 M/uL (4.70-6.10) 04/16/25 18:18 Hgb 14.4 g/dl (14.0-18.0) 04/16/25 18:18 POC Hgb 14.6 g/dl (14.0-18.0) 04/16/25 18:25 Hct 41.6 % (42.0-52.0) L 04/16/25 18:18 POC Hct 43 % (42-52) 04/16/25 18:25 MCV 85.4 fL (80.0-100.0) 04/16/25 18:18 MCH 29.6 pg (25.0-34.0) 04/16/25 18:18 MCHC 34.6 g/dL (32.0-36.0) 04/16/25 18:18 RDW Std Deviation 41.1 fL (36.4-46.3) 04/16/25 18:18 RDW Coeff of Adore 13.2 % (11.5-14.5) 04/16/25 18:18 Plt Count 336 K/uL (130-400) 04/16/25 18:18 MPV 9.3 fL (9.4-12.4) L 04/16/25 18:18 Immature Gran % (Auto) 1.2 % 04/16/25 18:18 Neut % (Auto) 89.5 % 04/16/25 18:18 Lymph % (Auto) 3.7 % 04/16/25 18:18 Holt % (Auto) 5.3 % 04/16/25 18:18 Eos % (Auto) 0.1 % 04/16/25 18:18 Baso % (Auto) 0.2 % 04/16/25 18:18 Neut # (Auto) 22.46 K/uL (1.40-6.50) H 04/16/25 18:18 Lymph # (Auto) 0.94 K/uL (1.20-3.40) L 04/16/25 18:18 Holt # (Auto) 1.34 K/uL (0.11-0.59) H 04/16/25 18:18 Eos # (Auto) 0.02 K/uL (0.00-0.50) 04/16/25 18:18 Baso # (Auto) 0.05 K/uL (0.00-0.20) 04/16/25 18:18 Immature Gran # (Auto) 0.30 K/uL (0.01-0.20) H 04/16/25 18:18 VBG pH 7.40 (7.36-7.41) 04/16/25 19:15 VBG pCO2 39 mmHg (38-50) 04/16/25 19:15 VBG pO2 29 mmHg 04/16/25 19:15 VBG HCO3 24 mmol/L 04/16/25 19:15 VBG O2 Saturation < 60.0 % 04/16/25 19:15 VBG Base Excess -0.5 mEq/L 04/16/25 19:15 POC Sodium 135 mmol/L (135-144) 04/16/25 18:25 Sodium 134 mmol/L (136-145) L 04/16/25 18:18 POC Potassium 4.3 mmol/L (3.3-5.0) 04/16/25 18:25 Potassium 4.2 mmol/L (3.5-5.1) 04/16/25 18:18 POC Chloride 104 mmol/L (101-112) 04/16/25 18:25 Chloride 102 mmol/L (98-107) 04/16/25 18:18 Carbon Dioxide 21 mmol/L (21-32) 04/16/25 18:18 POC Total CO2 19 mmol/L (24-31) L 04/16/25 18:25 Anion Gap 11 (3-11) 04/16/25 18:18 POC Anion Gap 18.0 mmol/L (16-25) 04/16/25 18:25 POC BUN 31 mg/dl (7-18) H 04/16/25 18:25 BUN 30 mg/dl (6-23) H D 04/16/25 18:18 Creatinine 1.08 mg/dl (0.6-1.4) D 04/16/25 18:18 POC Creatinine 1.1 mg/dl (0.6-1.3) 04/16/25 18:25 Est Cr Clr Drug Dosing 60.9 ml/min 04/16/25 18:18 eGFR 69.81 04/16/25 18:18 BUN/Creatinine Ratio 27.8 (10-20) H 04/16/25 18:18 Glucose 164 mg/dl (70-99(Fasting)) H 04/16/25 18:18 POC Glucose 121 mg/dl (70-99) H 04/16/25 19:56 POC Glucose (other) 161 mg/dl (70-99) H 04/16/25 18:25 Lactate 4.4 mmol/L (0.4-2.0) H* 04/16/25 18:18 Calcium 9.8 mg/dl (8.6-10.3) 04/16/25 18:18 POC Ioniz Calcium Philip 1.34 mmol/l (1.12-1.32) H 04/16/25 18:25 Total Bilirubin 0.6 mg/dl (0.2-1.0) 04/16/25 18:18 AST 27 U/L (13-39) 04/16/25 18:18 ALT 38 U/L (7-52) 04/16/25 18:18 Alkaline Phosphatase 121 U/L (34-104) H 04/16/25 18:18 Troponin I High Sens 26.9 pg/ml (0-20) H 04/16/25 18:18 Total Protein 6.5 gm/dl (6.0-8.3) 04/16/25 18:18 Albumin 3.4 gm/dl (3.4-5.0) 04/16/25 18:18 Globulin 3.1 gm/dl (2.5-4.0) 04/16/25 18:18 Albumin/Globulin Ratio 1.1 (0.9-2) 04/16/25 18:18 TSH 4.347 uIu/ml (0.300-4.500) 04/16/25 18:18 Urine Color Yellow 04/16/25 20:05 Urine Appearance Clear (Clear) 04/16/25 20:05 Urine pH 5.5 (4.5-7.5) 04/16/25 20:05 Ur Specific [place] 1.024 (1.000-1.030) 04/16/25 20:05 Urine Protein Negative (Negative) 04/16/25 20:05 Urine Glucose (UA) Negative (Negative) 04/16/25 20:05 Urine Ketones Trace (Negative) H 04/16/25 20:05 Urine Blood Negative (Negative) 04/16/25 20:05 Urine Nitrite Negative (Negative) 04/16/25 20:05 Urine Bilirubin Negative (Negative) 04/16/25 20:05 Urine Urobilinogen Negative (Negative) 04/16/25 20:05 Ur Leukocyte Esterase Negative (Negative) 04/16/25 20:05 Urine Comment 04/16/25 20:05 Impressions Chest X-Ray 04/16/25 18:01 EXAM: Portable AP chest radiograph TECHNIQUE: AP portable radiograph of the chest was obtained. INDICATION: Shortness of breath Comparison: Chest radiograph from April 14, 2025. FINDINGS: LINES and TUBES: None CARDIOVASCULAR: Cardiac silhouette is stably enlarged in size. Atherosclerosis of the thoracic aorta. LUNGS/PLEURA: No focal consolidation identified. Mild pulmonary vascular congestion and chronic interstitial lung changes are similar. Bibasilar atelectasis again seen. No significant pleural fluid. No discernible pneumothorax. OSSEOUS/OTHER: No displaced acute osseous process identified. IMPRESSION: Mild congestive changes of the cardiovascular system that appear similar to the previous radiograph. Electronically signed by Bobby Zhao 04-16-2025 6:[address] 04/16/25 18:01 CT head without contrast History: Confusion Comparison: 04/14/2025 Technique: Using multidetector thin collimation helical acquisition technique, axial, coronal and sagittal CT images from the skull base to the vertex were obtained without intravenous contrast. Dose reduction techniques were achieved by using automatic exposure control and/or adjustment of mA and/or kV according to patient size and/or use of iterative reconstruction technique. Findings: No intracranial hemorrhage, mass-effect, or midline shift. The ventricles are proportionate to the cerebral sulci. The veneg[place] to white matter differentiation of the cerebral hemispheres is preserved. The basal cisterns are patent. There is moderate cerebral atrophy. Moderate, patchy low-attenuation changes in the white matter, most suggestive of sequelae of chronic small vessel ischemic disease. The visualized paranasal sinuses are clear. Mastoid air cells are clear. Impression: No acute intracranial pathology. Electronically signed by Mor Snell 04-16-2025 6:[address] chest: No evidence of acute pulmonary embolism to the proximal segmental level. More distal emboli cannot be excluded due to respiratory motion. Diagnostic Findings EKG as per my interpretation :Rate 110, sinus tachycardia, LAD, LAFB, LVH, anteroseptal and inferior infarcts, no ischemia (1) Altered mental status Altered mental status type: disorientation Qualified Code(s): R41.0 - Disorientation, unspecified
[2025-04-16] MEDS: ALBUMIN 25% 25 GM/100 ML VIAL IV ONE (20:50)
[2025-04-16 21:06] LABS: Magnesium 1.5 mg/dl (1.7-2.4)
[2025-04-16] MEDS ORDERED: PROMETHAZINE 6.25 MG/50.25 ML BAG IV PRN (21:26)
[2025-04-16] MEDS: OPTIRAY 320 125ml IV ONE (21:41)
[2025-04-16 21:42] LABS: Partial Thromboplastin Time 28 Seconds (21-31)
[2025-04-16 22:16] LABS: Creatine Kinase 119.0 U/L (30-223)
[2025-04-16] MEDS: MAGNESIUM SULFATE / D5W 1 GM/100 ML BAG IV SCH (22:39)
--- NOTE | 2025-04-16 23:42 | CT Scan Report ---
Exam(s): CTA CHEST IV Amt: 115 ml optiray 320 EXAM: CT Angiography Chest With Intravenous Contrast CLINICAL HISTORY: Reason for exam: transient hypoxemia. TECHNIQUE: Axial computed tomographic angiography images of the chest with intravenous contrast. CTDI is 36.17 mGy and DLP is 1183.53 mGy-cm. Automated exposure control was utilized for the study. A dose lowering technique was utilized adhering to the principles of ALARA. MIP reconstructed images were created and reviewed. COMPARISON: 02/02/2025 FINDINGS: Limitations: Motion. Pulmonary arteries: Adequate pulmonary artery opacification. Normal caliber main pulmonary artery. No evidence of acute pulmonary embolism to the proximal segmental level. More distal emboli cannot be excluded due to respiratory motion. Aorta: No aortic aneurysm or dissection. Lungs: No airspace consolidation or pulmonary mass. Pleural space: No pleural significant effusion. No pneumothorax. Heart: Coronary artery atherosclerosis. No cardiomegaly or pericardial effusion. Bones/joints: Osteopenia. Disc degeneration in the thoracic spine. Mild chronic compression deformities at T6 and T12. No acute fracture or dislocation. Soft tissues: Unremarkable. Lymph nodes: No enlarged lymph nodes. Liver: Calcified hepatic granuloma. Gallbladder and bile ducts: Cholecystectomy. Spleen: Calcified splenic granulomata. IMPRESSION: No evidence of acute pulmonary embolism to the proximal segmental level. More distal emboli cannot be excluded due to respiratory motion. Electronically signed by: David Jensen M.D. 04/16/25 23:41 PM
[2025-04-17] MEDS ORDERED: GLUCAGON FOR INJ 1 MG VIAL SQ PRN (02:34)
[2025-04-17] MEDS ORDERED: CARBOHYDRATES FOR HYPOGLYCEMIA PO PRN (02:34)
[2025-04-17] MEDS ORDERED: DEXTROSE 50% 50 ML SYRINGE IV PRN (02:34)
[2025-04-17] MEDS ORDERED: GLUCOSE 40% GEL 15 GM TUBE PO PRN (02:34)
[2025-04-17] MEDS ORDERED: GLUCOSE 10 TAB/TUBE PO PRN (02:34)
[2025-04-17] MEDS: METOPROLOL TARTRATE 1 MG/ML VIAL IV STA (03:11)
[2025-04-17] MEDS: INSULIN ASPART PER UNIT CHARGE SC SCH (03:39)
[2025-04-17 05:16] LABS: Hematocrit (blood only) 35.0 % (42.0-52.0); Hemoglobin 12.0 g/dl (14.0-18.0); Immature Granulocytes # (auto) 0.11 K/uL (0.01-0.20); Immature Granulocytes % (auto) 0.6 %; Mean Corpuscular Hemoglobin 29.1 pg (25.0-34.0); Mean Corpuscular Volume 84.7 fL (80.0-100.0); Platelet Count 300 K/uL (130-400); RDW Standard Deviation 41.9 fL (36.4-46.3); Red Blood Count 4.13 M/uL (4.70-6.10); White Blood Count 17.41 K/ul (4.8-10.8)
[2025-04-17 05:33] LABS: Anion Gap 5.0 (3-11); Blood Urea Nitrogen 28.0 mg/dl (6-23); Calcium 9.2 mg/dl (8.6-10.3); Carbon Dioxide 27.0 mmol/L (21-32); Chloride 103.0 mmol/L (98-107); Creatinine Clr Calc Pharmacy 76.5 ml/min; Glucose 124.0 mg/dl (70-99(Fasting)); Magnesium 2.1 mg/dl (1.7-2.4); Potassium 3.8 mmol/L (3.5-5.1); Sodium 135.0 mmol/L (136-145)
--- NOTE | 2025-04-17 08:15 | Hospitalist Progress Note ---
Date of Service April 17, 2025 Assessment & Plan (1) Syncope: (2) Altered mental status: Plan: Per admitting service notes with addendum: Syncope -- recurrent? last 2 episodes 2021 --- discussed with Staff at [facility] More information gathered Patient was taken to the shower by officers, and patient suddenly passed out No note of chest pain, shortness of breath, palpitations, dizziness Patient was noted to be pale, blood pressure 128/78, heart rate 114, 95% on room air, respiration 40, blood glucose 236 no note of seizure-like activity Patient regained consciousness after 2 minutes, no documentation whether the patient was confused after the episode -- as per [facility], patient had syncopal episode x 2 back in 2021 -- will reconsult cardiology service in light of syncope in the setting of aortic stenosis -- CT head negative for acute process will reconsult neurology service -- check orthostatic vital signs Hypoxia -- CT angiogram chest: No acute PE, no pneumonia or volume overload noted -- will confirm with before hypoxic symmetry on room air Troponin elevation secondary to illness and elevated BP valvular heart disease (moderate /mild AR) hyperlipidemia, on statin Rx PVD, carotid artery disease on imaging from last confinement, patient to follow- up with vascular surgery hx CVA, on antiplatelet Rx hypothyroidism, euthyroid as of today's TSH schizoaffective disorder/mood disorder, not on maintenance medications Hypomagnesemia Admit to med/tele DC glipizide on discharge Follow troponin Replace electrolytes ISS BG goal 110-140, carb count coverage PT OT eval prior to discharge DVT prophylaxis. Lovenox subcu Full code Admission and Anticipated Discharge Date Admission Date: April 16, 2025 Results & Data Results & Data Vital Signs (Past 12 Hours) Vital Signs Temp Pulse Pulse Resp BP BP Pulse Ox 04/17/25 07:06 79 04/17/25 06:16 36.9 C 84 24 154/101 H 98 04/17/25 03:40 76 161/86 H 04/17/25 03:20 04/17/25 03:20 36.8 C 83 28 H 175/89 H 99 04/17/25 03:11 91 H 173/89 H 04/17/25 03:00 36.9 C 91 H 28 H 173/89 H 100 04/17/25 02:09 90 04/17/25 01:30 94 H 18 162/92 H 97 04/17/25 01:03 90 25 H 96 04/17/25 01:00 90 25 H 157/96 H 96 04/17/25 00:30 91 H 19 156/93 H 98 04/17/25 00:00 86 21 149/88 H 100 04/16/25 23:30 92 H 20 138/93 100 04/16/25 23:03 90 26 H 138/91 97 04/16/25 22:01 94 H 04/16/25 22:00 94 H 26 H 127/90 98 04/16/25 21:48 96 H 96 04/16/25 21:30 96 H 26 H 123/89 04/16/25 21:18 98 H 28 H 100 04/16/25 20:54 99 H 117/88 99 04/16/25 20:31 58 L 24 155/86 H 98 O2 Del Method O2 Flow Rate 04/17/25 07:06 04/17/25 06:16 Nasal Cannula 5 04/17/25 03:40 04/17/25 03:20 Nasal Cannula 5 04/17/25 03:20 Nasal Cannula 5 04/17/25 03:11 04/17/25 03:00 Nasal Cannula 5 04/17/25 02:09 04/17/25 01:30 Nasal Cannula 4 04/17/25 01:03 04/17/25 01:00 04/17/25 00:30 04/17/25 00:00 04/16/25 23:30 04/16/25 23:03 Nasal Cannula 4 04/16/25 22:01 04/16/25 22:00 Nasal Cannula 4 04/16/25 21:48 Nasal Cannula 4 04/16/25 21:30 04/16/25 21:18 Nasal Cannula 4 04/16/25 20:54 Nasal Cannula 4 04/16/25 20:31 2 (2) Altered mental status Altered mental status type: disorientation Qualified Code(s): R41.0 - Disorientation, unspecified
[2025-04-17] MEDS: CLOPIDOGREL BISULFATE 75 MG TAB PO SCH (08:40)
[2025-04-17] MEDS: ENOXAPARIN INJ 40 MG/0.4 ML SYR SQ SCH (08:40)
[2025-04-17] MEDS: ACETAMINOPHEN 500 MG TAB PO SCH (08:40)
[2025-04-17] MEDS: CHOLECALCIFEROL 25 MCG (1000 UNITS) TAB PO SCH (08:40)
--- NOTE | 2025-04-17 09:04 | Cardiology Consultation ---
Date of Consultation April 17, 2025 Assessment & Plan (1) Syncope: (2) Severe aortic stenosis: (3) Hyperlipidemia: Plan 79 year old male and current inmate at [facility] with PMHx significant for severe aortic stenosis, DM, hypothyroidism, schizoaffective disorder, hyperlip idemia, and normal pressure hydrocephalus who presented to [facility] on 04/16/25 for evaluation after a unresponsive episode. He was found unresponsive in the shower and later woke up not aware of events. Recent [facility] admission for stroke like symptoms with bilateral upper and lower extremity numbness. CTA Head/Neck showed left ICA stenosis 80% and 50% stenosis right ICA. Discharged DAPT and recommended outpatient neurology consultation. NKECHI 04/15/25 during prior admission showed preserved LVEF 55-60%, moderate aortic stenosis and mild aortic regurgitation. Recommendations: * Etiology unclear for recent syncopal event but likely noncardiac and possibly secondary to hypoglycemic event * Recent NKECHI (04/15/25) during prior admission revealed preserved LVEF 55-60% and moderate aortic stenosis (peak CW velocity 3.5 m/s, mean PG 27 mmHg, YA 1.2- 1.4 cm2) * Heart rate and blood pressure well controlled * EKG upon admission reviewed and demonstrated sinus tachycardia. No acute ischemic changes or significant arrhythmias. * High-sensitivity troponins x3 mildly elevated (26-26-32) but trending down * Continue [employer]S ADMINSTRATOR aspirin, Plavix, and atorvastatin as per current regimen * Continue to monitor on telemetry Case discussed and coordinated with Dr. Darden. Please see Dr. Darden notes for further recommendations. I spent a total of 45 minutes coordinating, documenting, and providing care for this patient excluding time spent in the performance of separately billed services or time spent by another provider/QHP. WILLIAM Desai Department of Cardiology Supervising Physician Co-Signing Physician Notes I spent a total of 45 minutes on the date of service in preparation, delivery, and documentation of the care provided to this patient, excluding any time spent in the performance of separately billed services. I have personally performed a history and physical examination on the patient. I have reviewed the advance practitioner's documentation, and I agree with, and take responsibility for the plan of care. History of Present Illness Reason for Consultation: syncope; aortic stenosis Requesting Physician: Zach Mason MD Attending Physician: Zach Mason MD History of Present Illness 79 year old male and current inmate at [facility] with PMHx significant for severe aortic stenosis, DM, hypothyroidism, schizoaffective disorder, hyperlipidemia, and normal pressure hydrocephalus who presented to [facility] on 04/16/25 for evaluation after a unresponsive episode. He was found unresponsive in the shower and later woke up not aware of events. Poor historian and unable to obtain accurate history of events. Denies presyncope symptoms prior to event. Denies chest pain, pressure, shortness of breath, tachy palpitations, lightheadedness, dizziness, orthopnea, PND, or worsening edema. Recent [facility] admission for stroke like symptoms with bilateral upper and lower extremity numbness. CTA Head/Neck showed left ICA stenosis 80% and 50% stenosis right ICA. Discharged DAPT and recommended outpatient neurology consultation. NKECHI 04/15/25 during prior admission showed preserved LVEF 55-60%, moderate aortic stenosis and mild aortic regurgitation. Allergies Allergy/AdvReac Type Severity Reaction Status Date / Time No Known Allergies Allergy Verified 04/14/25 17:53 Home Medications Medication Instructions Recorded Confirmed Type aspirin 81 mg tablet,delayed 81 mg PO HS 08/15/20 04/16/25 History release calcium 600 mg (as 2 tab PO HS 08/15/20 04/16/25 History carbonate)-vitamin D3 10 mcg (400 unit) tablet glipizide 10 mg tablet 10 mg PO HS 08/15/20 04/16/25 History levothyroxine 50 mcg tablet 50 mcg PO HS 08/15/20 04/16/25 History metformin 1,000 mg tablet 1,000 mg PO HS 08/15/20 04/16/25 History acetaminophen 500 mg tablet 1,000 mg PO BID 02/02/25 04/16/25 History cholecalciferol (vitamin D3) 25 50 mcg PO DAILY 04/14/25 04/16/25 History mcg (1,000 unit) capsule (Vitamin D3) atorvastatin 80 mg tablet 80 mg PO HS 04/16/25 04/16/25 History clopidogrel 75 mg tablet 75 mg PO QAM 20 days #20 tabs 04/16/25 04/16/25 Rx Patient History Medical History Hyperlipidemia Hypothyroidism NPH (normal pressure hydrocephalus) Diabetes mellitus Diabetes Schizoaffective disorder Social History Smoking Status: Never smoker Second Hand Exposure: No; Do You Dip or Chew Tobacco: No; Hx Alcohol Use: No Hx Substance Use: No Preferred Language: Croatian Communication Ability: Impaired Gift Manager Required: No Beliefs That Will Affect Care: None Current Living Situation: Other Current Living Situation Comment: [facility] Feels Safe at Home: Yes Assistive Devices: None Review of Systems Review of Systems: See HPI for pertinent positives. All others negative other than those noted in the HPI. CONSTITUTIONAL: No change in weight, No weakness, No fatigue, No fevers, No sweats or chills. HEENT: No visual changes, No epistaxis, No bleeding gums, No dysphagia, PULMONARY: No cough, sputum, or hemoptysis, No wheezing, No shortness of breath, and No recent change in breathing. CARDIOVASCULAR: +syncope. No chest pain, No dyspnea on exertion, No edema, No palpitations, No claudication, No calf pain. GASTROINTESTINAL: No change in appetite, No abdominal pain, No change in bowel habits, No significant heartburn, No nausea, No vomiting, No diarrhea, No constipation, No blood in stools or black tarry stools, No dysphagia. HEMATOLOGIC: No abnormal bleeding and No bruising. NEUROLOGICAL: No falls, No dizziness, No lightheadedness, Normal balance, No headaches, and No weakness. PSYCH: No sleep disturbances, No mood changes. Results & Data Vital Signs (Past 12 Hours) Vital Signs Temp Pulse Pulse Resp BP BP Pulse Ox 04/17/25 07:06 79 04/17/25 06:16 36.9 C 84 24 154/101 H 98 04/17/25 03:40 76 161/86 H 04/17/25 03:20 04/17/25 03:20 36.8 C 83 28 H 175/89 H 99 04/17/25 03:11 91 H 173/89 H 04/17/25 03:00 36.9 C 91 H 28 H 173/89 H 100 04/17/25 02:09 90 04/17/25 01:30 94 H 18 162/92 H 97 04/17/25 01:03 90 25 H 96 04/17/25 01:00 90 25 H 157/96 H 96 04/17/25 00:30 91 H 19 156/93 H 98 04/17/25 00:00 86 21 149/88 H 100 04/16/25 23:30 92 H 20 138/93 100 04/16/25 23:03 90 26 H 138/91 97 04/16/25 22:01 94 H 04/16/25 22:00 94 H 26 H 127/90 98 04/16/25 21:48 96 H 96 04/16/25 21:30 96 H 26 H 123/89 04/16/25 21:18 98 H 28 H 100 O2 Del Method O2 Flow Rate 04/17/25 07:06 04/17/25 06:16 Nasal Cannula 5 04/17/25 03:40 04/17/25 03:20 Nasal Cannula 5 04/17/25 03:20 Nasal Cannula 5 04/17/25 03:11 04/17/25 03:00 Nasal Cannula 5 04/17/25 02:09 04/17/25 01:30 Nasal Cannula 4 04/17/25 01:03 04/17/25 01:00 04/17/25 00:30 04/17/25 00:00 04/16/25 23:30 04/16/25 23:03 Nasal Cannula 4 04/16/25 22:01 04/16/25 22:00 Nasal Cannula 4 04/16/25 21:48 Nasal Cannula 4 04/16/25 21:30 04/16/25 21:18 Nasal Cannula 4 Laboratory Results Cardiac Enzymes 04/16/25 04/16/25 04/16/25 Range/Units 18:18 20:19 20:23 AST 27 (13-39) U/L Troponin I High Sens 26.9 H 36.5 H (0-20) pg/ml B-Natriuretic Peptide 59 (0-100) pg/ml 04/17/25 Range/Units 04:45 AST (13-39) U/L Troponin I High Sens 32.4 H (0-20) pg/ml B-Natriuretic Peptide (0-100) pg/ml Coagulation 04/16/25 Range/Units 20:23 APTT 28 (21-31) Seconds B-Natriuretic Peptide 59 (0-100) pg/ml CBC 04/16/25 04/17/25 Range/Units 18:18 04:45 WBC 25.11 H D 17.41 H (4.8-10.8) K/ul RBC 4.87 4.13 L (4.70-6.10) M/uL Hgb 14.4 12.0 L (14.0-18.0) g/dl Hct 41.6 L 35.0 L (42.0-52.0) % Plt Count 336 300 (130-400) K/uL Neut # (Auto) 22.46 H 13.66 H (1.40-6.50) K/uL Lymph # (Auto) 0.94 L 2.32 (1.20-3.40) K/uL Bates # (Auto) 1.34 H 1.22 H (0.11-0.59) K/uL Eos # (Auto) 0.02 0.07 (0.00-0.50) K/uL Baso # (Auto) 0.05 0.03 (0.00-0.20) K/uL Comprehensive Metabolic Panel 04/16/25 04/17/25 Range/Units 18:18 04:45 Sodium 134 L 135 L (136-145) mmol/L Potassium 4.2 3.8 (3.5-5.1) mmol/L Chloride 102 103 (98-107) mmol/L Carbon Dioxide 21 27 (21-32) mmol/L BUN 30 H D 28 H (6-23) mg/dl Creatinine 1.08 D 0.86 (0.6-1.4) mg/dl Glucose 164 H 124 H (70-99(Fasting)) mg/dl Calcium 9.8 9.2 (8.6-10.3) mg/dl AST 27 (13-39) U/L ALT 38 (7-52) U/L Alkaline Phosphatase 121 H (34-104) U/L Total Protein 6.5 (6.0-8.3) gm/dl Albumin 3.4 (3.4-5.0) gm/dl Intake and Output 04/16/25 04/17/25 04/17/25 22:59 06:59 14:59 Intake Total 1100 / 1300 200 / 1300 Balance 1100 / 1300 200 / 1300 Intake: IV 1100 / 1300 200 / 1300 Albumin 25% 25 gm In 100 ml @ 100 / 100 50 mls/hr IV ONE ONE Rx#: [id number] Magnesium Sulfate / D5w 1 gm In 200 / 200 100 ml @ 50 mls/hr IV Q2H JOSE Rx#:[id number] Sodium Chloride 0.9% 1,000 ml @ 1000 / 1000 999 mls/hr IV .Q1H1M JOSE Rx#: [id number] Other: Weight 95 kg 95 kg Weight Measurement Method Chair Scale Built in [facility] Diagnostic Findings NKECHI 04/15/25 LVEF = 55-60% Moderate valvular aortic stenosis Doppler velocities were obtained from the deep transgastric view with peak CW velocity across the aortic valve of 3.5 m/s, mean gradient 27 mmHg. Mild aortic regurgitation PG Care Time/CCT Total # of Minutes Spent Total Time Spent with Patient: Total time spent is greater than 50% in coordination of care (as documented) at patient's floor/unit and/or counseling patient: [place] [address] IN/OBS CONSULT LVL 4,60M Patient Type New Diagnoses Syncope R55 Severe aortic stenosis I35.0 Hyperlipidemia E78.5 Time Spent (min) 60
--- NOTE | 2025-04-17 16:53 | Hospitalist Progress Note ---
Date of Service April 17, 2025 Assessment & Plan (1) Syncope: (2) Altered mental status: Plan: Per admitting service notes with addendum: Syncope -- recurrent? last 2 episodes 2021 --- discussed with Staff at [facility] More information gathered Patient was taken to the shower by officers, and patient suddenly passed out No note of chest pain, shortness of breath, palpitations, dizziness Patient was noted to be pale, blood pressure 128/78, heart rate 114, 95% on room air, respiration 40, blood glucose 236 no note of seizure-like activity Patient regained consciousness after 2 minutes, no documentation whether the patient was confused after the episode -- as per [facility], patient had syncopal episode x 2 back in 2021 -- will reconsult cardiology service in light of syncope in the setting of aortic stenosis -- CT head negative for acute process will reconsult neurology service -- check orthostatic vital signs Bacteremia -- gram positive cocci clusters x 2 bottles Daptomycin ordered -- s/p NKECHI: no vegetation noted Hypoxia -- CT angiogram chest: No acute PE, no pneumonia or volume overload noted -- will confirm with before hypoxic symmetry on room air Troponin elevation secondary to illness and elevated BP -- trended down EKG no signs of acute ischemia no cardiac symptoms at present valvular heart disease (moderate /mild AR) -- s/p NKECHI 04/15 hyperlipidemia, on statin Rx PVD, carotid artery disease on imaging from last confinement, patient to follow- up with vascular surgery hx CVA, on antiplatelet Rx hypothyroidism, euthyroid as of today's TSH schizoaffective disorder/mood disorder, not on maintenance medications Hypomagnesemia PT OT eval prior to discharge DVT prophylaxis. Lovenox subcu Full code Admission and Anticipated Discharge Date Admission Date: April 16, 2025 Subjective seen with officers at bedside they state that patient seems better today, less confused denies any complaints sleeping but easily awakened seems to be confused, poor recollection of events yesterday states he feels fine denies headache, dizziness, visual problems no chest pain, dyspnea, palpitations, dizziness no other symptoms Review of Systems Review of Systems: all noted and negative except for above Physical Exam Physical Exam: General- oriented x 0-1, not in distress, speaks in sentences with no effort or accessory muscle use Eyes- anicteric Neck- no JVD Lungs- clear breath sounds bilaterally, no rales/wheezes Heart- normal rate, regular rhythm;(+) gr 4 holosystolic murmur Abdomen- normal bowel sounds, nondistended, soft, nontender Extremities- no pretibial edema, no calf tenderness Neuro- alert, oriented x 0-1; confused, no new gross focal neurologic deficits Skin- warm & dry Results & Data Results & Data Vital Signs (Past 12 Hours) Vital Signs Temp Pulse Pulse Pulse Resp BP BP 04/17/25 16:06 36.5 C 83 22 133/68 04/17/25 14:48 81 04/17/25 14:31 04/17/25 14:00 36.7 C 87 18 130/80 04/17/25 12:12 04/17/25 12:00 99 H 24 130/76 04/17/25 10:00 88 20 143/91 H 04/17/25 08:00 21 144/97 H 04/17/25 07:06 79 04/17/25 06:16 36.9 C 84 24 154/101 H Pulse Ox O2 Del Method O2 Flow Rate 04/17/25 16:06 98 Room Air 04/17/25 14:48 04/17/25 14:31 Nasal Cannula 2 04/17/25 14:00 92 Nasal Cannula 2 04/17/25 12:12 Nasal Cannula 2 04/17/25 12:00 96 Nasal Cannula 2 04/17/25 10:00 97 Room Air 04/17/25 08:00 97 Room Air 04/17/25 07:06 04/17/25 06:16 98 Nasal Cannula 5 all noted and reviewed including below (2) Altered mental status Altered mental status type: disorientation Qualified Code(s): R41.0 - Disorientation, unspecified
[2025-04-17 17:21] LABS: A calco-baum cmplx NotReported Not Detected (NotDetected); Bact fragilis Not Reported Not Detected (NotDetected); Blood Culture Id Panel PCR Panel Negative (NotDetected); C auris Not Reported Not Detected (NotDetected); Calbicans Not Reported Not Detected (NotDetected); Candida glabrata Not Reported Not Detected (NotDetected); Candida krusei Not Reported Not Detected (NotDetected); Cneoformans/gatti Not Reported Not Detected (NotDetected); Cparapsilosis Not Reported Not Detected (NotDetected); Ctropicalis Not Reported Not Detected (NotDetected); E cloacae compx Not Reported Not Detected (NotDetected); Efaecalis Not Reported Not Detected (NotDetected); Efaecium Not Reported Not Detected (NotDetected); Enterobacterales Not Reported Not Detected (NotDetected); Escherichia coli Not Reported Not Detected (NotDetected); H influenzae Not Reported Not Detected (NotDetected); K aerogenes Not Reported Not Detected (NotDetected); Koxytoca Not Reported Not Detected (NotDetected); Kpneumoniae grp Not Reported Not Detected (NotDetected); Lmonocyt Not Reported Not Detected (NotDetected); N meningitidis Not Reported Not Detected (NotDetected); P aeruginosa Not Reported Not Detected (NotDetected); Proteus spp Not Reported Not Detected (NotDetected); Salmonella spp Not Reported Not Detected (NotDetected); Staph lugdunensis Not Reported Not Detected (NotDetected); Staph spp. Not Reported Not Detected (NotDetected); Staphaureus Not Reported Not Detected (NotDetected); Staphepi Not Reported Not Detected (NotDetected); Stenmaltophilia Not Reported Not Detected (NotDetected); Strep agal(GrpB) Not Reported Not Detected (NotDetected); Strep pneum Not Reported Not Detected (NotDetected); Strep pyog (GrpA) Not Reported Not Detected (NotDetected); Strep spp Not Reported Not Detected (NotDetected)
[2025-04-17] MEDS: DAPTOmycin 500 MG in SYRINGE 0 ML IV SCH (19:43)
[2025-04-17] MEDS ORDERED: ATORVASTATIN 40 MG TAB PO SCH (21:00)
[2025-04-17] MEDS: ASPIRIN 81 MG ECTAB PO SCH (21:54)
[2025-04-17] MEDS: LEVOTHYROXINE SODIUM 50 MCG TABLET PO SCH (21:54)
--- NOTE | 2025-04-17 22:55 | Communication Note ---
Date of Service: April 17, 2025
[2025-04-17] MEDS ORDERED: VANCOMYCIN CONSULT ACTIVE PRN (22:56)
--- NOTE | 2025-04-18 08:01 | Electrocardiogram Report ---
Test Reason : Blood Pressure : */* mmHG Vent. Rate : 109 BPM Atrial Rate : 109 BPM P-R Int : 166 ms QRS Dur : 72 ms QT Int : 318 ms P-R-T Axes : 62 -10 51 degrees QTcB Int : 428 ms Sinus tachycardia Minimal voltage criteria for LVH, may be normal variant ( R in aVL ) Anteroseptal infarct (cited on or before 26-Jan-2025) Abnormal ECG When compared with ECG of 14-Apr-2025 16:51, No significant change was found Confirmed by Ines Felix ([id number]) on 04/18/2025 8:01:42 AM Referred By: [facility] Confirmed By: Ines Felix
[2025-04-18 10:24] LABS: Hematocrit (blood only) 34.1 % (42.0-52.0); Hemoglobin 11.7 g/dl (14.0-18.0); Immature Granulocytes # (auto) 0.05 K/uL (0.01-0.20); Immature Granulocytes % (auto) 0.5 %; Mean Corpuscular Hemoglobin 29.4 pg (25.0-34.0); Mean Corpuscular Volume 85.7 fL (80.0-100.0); Platelet Count 257 K/uL (130-400); RDW Standard Deviation 41.7 fL (36.4-46.3); Red Blood Count 3.98 M/uL (4.70-6.10); White Blood Count 11.05 K/ul (4.8-10.8)
[2025-04-18 10:39] LABS: Alanine Aminotransferase 31.0 U/L (7-52); Albumin Globulin Ratio 1.5 (0.9-2); Alkaline Phosphatase 95.0 U/L (34-104); Anion Gap 5.0 (3-11); Bilirubin,Total 0.5 mg/dl (0.2-1.0); Blood Urea Nitrogen 15.0 mg/dl (6-23); Calcium 9.3 mg/dl (8.6-10.3); Carbon Dioxide 26.0 mmol/L (21-32); Chloride 104.0 mmol/L (98-107); Creatinine Clr Calc Pharmacy 93.7 ml/min; Globulin 2.4 gm/dl (2.5-4.0); Glucose 137.0 mg/dl (70-99(Fasting)); Magnesium 1.9 mg/dl (1.7-2.4); Potassium 4.0 mmol/L (3.5-5.1); Sodium 135.0 mmol/L (136-145); Total Protein 5.9 gm/dl (6.0-8.3)
--- NOTE | 2025-04-18 12:10 | Neurology Consultation ---
Date of Consultation April 18, 2025 Assessment & Plan (1) Syncope: Unresponsive episode in the shower in the setting of hypoglycemia and known carotid stenosis. No specific concern for neurologic process but likely multifactorial syncope due to the hot water and these other factors. No further neurologic workup recommended. Continue plan for carotid eval as an outpatient with vascular or neuroendovascular surgery. Telehealth Consultation Telehealth Information Telehealth Information: I performed this visit using a real-time telehealth connection between my location and the patients location ([facility]). After connecting through interactive tele-video, patient was identified by name and date of and/or wristband check.Patient (or authorized healthcare primary care sales representative) was informed that this was a telemedicine visit and it was being conducted confidentially over secure lines. My office door was closed and no one else was present in the room with me.Patient (or authorized healthcare primary care sales representative) provided consent to proceed with the visit, expressed an understanding of privacy and security of the telemedicine visit, and gave permission to have a hospital primary care sales representative in the room in order to assist with the visit and to conduct portions of the visit, as needed. I informed the patient (or authorized healthcare primary care sales representative) that I reviewed their record and presented the opportunity for them to ask any questions regarding the visit today. The patient agreed to participate. History of Present Illness Reason for Consultation: Unresponsive episode Requesting Physician: Dr. Mason Attending Physician: Zach Mason MD History of Present Illness Ion Colindres is a 79 yo M presenting with a reported unresponsive episode in the shower. History is limited as patient does not recall any details of the episode. Was recently seen for nonspecific numbness and word finding and found to have carotid stenosis with plan for outpatient vascular follow-up. He feels normal currently. No history of seizures. Does not believe he fell or hit his head but is unsure. Allergies Allergy/AdvReac Type Severity Reaction Status Date / Time No Known Allergies Allergy Verified 04/14/25 17:53 Home Medications Medication Instructions Recorded Confirmed Type aspirin 81 mg tablet,delayed 81 mg PO HS 08/15/20 04/16/25 History release calcium 600 mg (as 2 tab PO HS 08/15/20 04/16/25 History carbonate)-vitamin D3 10 mcg (400 unit) tablet glipizide 10 mg tablet 10 mg PO HS 08/15/20 04/16/25 History levothyroxine 50 mcg tablet 50 mcg PO HS 08/15/20 04/16/25 History metformin 1,000 mg tablet 1,000 mg PO HS 08/15/20 04/16/25 History acetaminophen 500 mg tablet 1,000 mg PO BID 02/02/25 04/16/25 History cholecalciferol (vitamin D3) 25 50 mcg PO DAILY 04/14/25 04/16/25 History mcg (1,000 unit) capsule (Vitamin D3) atorvastatin 80 mg tablet 80 mg PO HS 04/16/25 04/16/25 History clopidogrel 75 mg tablet 75 mg PO QAM 20 days #20 tabs 04/16/25 04/16/25 Rx Patient History Medical History Hyperlipidemia Hypothyroidism NPH (normal pressure hydrocephalus) Diabetes mellitus Diabetes Schizoaffective disorder Social History Smoking Status: Never smoker Second Hand Exposure: No; Do You Dip or Chew Tobacco: No; Hx Alcohol Use: No Hx Substance Use: No Preferred Language: Greek Communication Ability: Effective Seo Assistant Required: No Beliefs That Will Affect Care: None Current Living Situation: Other Current Living Situation Comment: [facility] Feels Safe at Home: Yes Assistive Devices: None Review of Systems None Physical Exam Neurological Examination: Mental Status: Awake and alert. Oriented to person, place, and time. Fluent. Comprehension intact. Affect appropriate. Cranial Nerves: II: Reads NIHSS cards, pupils 3/3 to 2/2, tiwari grossly intact. III/IV/: Versions intact without nystagmus, no gaze preference. V: Facial sensation symmetric to light touch VII: Facial expression symmetric Motor: Strength was symmetric and antigravity throughout. Pronator drift was a bsent. There were no abnormal movements. Reflexes: Unable to assess over telemedicine Results & Data Vital Signs (Past 12 Hours) Vital Signs Temp Pulse Pulse Resp BP Pulse Ox O2 Del Method 04/18/25 08:38 82 18 152/87 H 96 Nasal Cannula 04/18/25 07:28 88 04/18/25 03:18 36.6 C 86 18 172/88 H 94 Nasal Cannula 04/18/25 01:00 36.6 C 89 18 138/73 97 Room Air O2 Flow Rate 04/18/25 08:38 2 04/18/25 07:28 04/18/25 03:18 2 04/18/25 01:00 Laboratory Results Abnormal lab results 04/17/25 04/17/25 04/18/25 Range/Units 16:58 20:57 07:45 WBC (4.8-10.8) K/ul RBC (4.70-6.10) M/uL Hgb (14.0-18.0) g/dl Hct (42.0-52.0) % Neut # (Auto) (1.40-6.50) K/uL Sodium (136-145) mmol/L BUN/Creatinine Ratio (10-20) Glucose (70-99(Fasting)) mg/dl POC Glucose 117 H 138 H 128 H (70-99) mg/dl Total Protein (6.0-8.3) gm/dl Globulin (2.5-4.0) gm/dl 04/18/25 04/18/25 Range/Units 09:47 12:06 WBC 11.05 H (4.8-10.8) K/ul RBC 3.98 L (4.70-6.10) M/uL Hgb 11.7 L (14.0-18.0) g/dl Hct 34.1 L (42.0-52.0) % Neut # (Auto) 8.93 H (1.40-6.50) K/uL Sodium 135 L (136-145) mmol/L BUN/Creatinine Ratio 21.4 H (10-20) Glucose 137 H (70-99(Fasting)) mg/dl POC Glucose 150 H (70-99) mg/dl Total Protein 5.9 L (6.0-8.3) gm/dl Globulin 2.4 L (2.5-4.0) gm/dl
--- NOTE | 2025-04-18 18:58 | Hospitalist Progress Note ---
Date of Service April 18, 2025 Assessment & Plan (1) Syncope: (2) Altered mental status: Plan: Per admitting service notes with addendum: Syncope -- recurrent? last 2 episodes 2021 --- discussed with Staff at [facility] More information gathered Patient was taken to the shower by officers, and patient suddenly passed out No note of chest pain, shortness of breath, palpitations, dizziness Patient was noted to be pale, blood pressure 128/78, heart rate 114, 95% on room air, respiration 40, blood glucose 236 no note of seizure-like activity Patient regained consciousness after 2 minutes, no documentation whether the patient was confused after the episode -- as per [facility], patient had syncopal episode x 2 back in 2021 -- will reconsult cardiology service in light of syncope in the setting of aortic stenosis -- CT head negative for acute process will reconsult neurology service -- check orthostatic vital signs 04/18 -- discussed with cardiology service, moderate aortic stenosis unlikely to be the etiology of patient's syncope -- discussed with neurology service Dr. Benedict, feels syncopal episode is related to vasovagal as event occurred while patient was taking a hot shower, no further neurologic testing at this point -- syncope secondary to bacteremia? Management per below Bacteremia -- gram positive cocci clusters x 2 bottles Daptomycin ordered -- s/p NKECHI 04/15 during initial admission, for evaluation of degree aortic stenosis found to have moderate aortic stenosis Discussed today with Dr. Paige, patient's moderate aortic stenosis poses a high risk for possible vegetation/infective endocarditis, may need a 6-week course of antibiotic repeat blood culture ordered for tomorrow Consult ID Altered mental status Possible metabolic encephalopathy secondary to bacteremia -- Per officers at bedside, patient is some mostly awake alert and oriented at the correctional facility prior to admission today, patient seems to be oriented x 1-2, answering most questions appropriately continue to monitor closely Hypoxia -- CT angiogram chest: No acute PE, no pneumonia or volume overload noted -- currently on room air, saturating more than 90% monitor closely Troponin elevation secondary to illness and elevated BP -- trended down EKG no signs of acute ischemia no cardiac symptoms at present valvular heart disease (moderate /mild AR) -- s/p NKECHI 04/15 hyperlipidemia, on statin Rx PVD, carotid artery disease on imaging from last confinement, patient to follow- up with vascular surgery hx CVA, on antiplatelet Rx hypothyroidism, euthyroid per TSH schizoaffective disorder/mood disorder, not on maintenance medications Hypomagnesemia PT OT eval prior to discharge DVT prophylaxis. Lovenox subcu Full code Admission and Anticipated Discharge Date Admission Date: April 16, 2025 Subjective Seen resting in bed, sitting up, PT/OT in progress Patient is awake and alert, oriented timesx 1-2, answering simple questions appropriately States he feels fine today overall Denies headache, dizziness, cough, shortness of breath, abdominal pain, problems with urination No syncope/presyncope while admitted denies fevers or chills No other new symptoms Review of Systems Review of Systems: all noted and negative except for above Physical Exam Physical Exam: General- oriented x 1-2, not in distress, speaks in sentences with no effort or accessory muscle use Eyes- anicteric Neck- no JVD Lungs- clear breath sounds bilaterally, no rales/wheezes Heart- normal rate, regular rhythm; no murmurs Abdomen- normal bowel sounds, nondistended, soft, nontender Extremities- no pretibial edema, no calf tenderness Neuro- alert, oriented x 1-2; no gross focal neurologic deficits Skin- warm & dry Results & Data Results & Data Vital Signs (Past 12 Hours) Vital Signs Pulse Pulse Resp BP Pulse Ox O2 Del Method O2 Flow Rate 04/18/25 13:52 83 04/18/25 12:55 97 04/18/25 08:38 82 18 152/87 H 96 Nasal Cannula 2 04/18/25 07:28 88 all noted and reviewed including below (2) Altered mental status Altered mental status type: disorientation Qualified Code(s): R41.0 - Disorientation, unspecified
--- NOTE | 2025-04-19 08:06 | Hospitalist Progress Note ---
Date of Service April 19, 2025 Assessment & Plan (1) Syncope: (2) Altered mental status: Plan: Mr. Colindres is a 79 yo gentleman with medical history significant for valvular heart disease (moderate /mild AR), hypertension, hyperlipidemia, PVD, CVA, possible NPH, DM2 on oral medications, hypothyroidism, BPH, schizoaffective disorder, mood disorder admitted for evaluation of syncope. Patient found to have bacteremia. S/p NKECHI on 04/15 noting moderate stenosis ID consult: plan to continue daptomycin while admitted, plans to transition to linezolid upon d/c for 14 days s/p negative blood culture #Syncope #Bilateral ICA stenosis #Moderate aortic stenosis -- recurrent? last 2 episodes 2021 Per prior hospitalist, discussed with Staff at [facility]:"Patient was taken to the shower by officers, and patient suddenly passed out. No note of chest pain, shortness of breath, palpitations, dizziness. Patient was noted to be pale, blood pressure 128/78, heart rate 114, 95% on room air, respiration 40, blood glucose 236. no note of seizure-like activit. Patient regained consciousness after 2 minutes, no documentation whether the patient was confused after the episode. as per [facility], patient had syncopal episode x 2 back in 2021" Consulted cardiology service: moderate aortic stenosis unlikely to be the etiology of patient's syncope Consulted neurology service: Dr. 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 HELPER CLERICAL aspirin, Plavix, and atorvastatin as per current regimen #GPC Bacteremia, micrococcus luteus, aerococcus viridans -- gram positive cocci clusters x 2 bottles Continue daptomycin while admitted -- s/p NKECHI 04/15 during initial admission, found to have moderate aortic stenosis Risk of endocarditis increased in presence of stenosis Discharge on linezolid for 14 days from negative blood cultures confirm if on antidepressants from [facility]--if so, then will dispo 14 days on daptomycin #Altered mental status #Possible metabolic encephalopathy secondary to bacteremia per officers at bedside, patient is some mostly awake alert and oriented at the correctional facility prior to admission today, patient seems to be oriented x 1-2, answering most questions appropriately continue to monitor closely #Hypoxia resolved CT angiogram chest: No acute PE, no pneumonia or volume overload noted currently on room air, saturating more than 90% monitor closely #Troponin elevation secondary to illness and elevated BP trended down EKG no signs of acute ischemia no cardiac symptoms at present valvular heart disease (moderate /mild AR) -- s/p NKECHI 04/15 hyperlipidemia, on statin Rx PVD, carotid artery disease on imaging from last confinement, patient to follow- up with vascular surgery hx CVA, on antiplatelet Rx hypothyroidism, euthyroid per TSH schizoaffective disorder/mood disorder, not on maintenance medications Hypomagnesemia PT OT eval prior to discharge DVT prophylaxis. Lovenox subcu Full code Admission and Anticipated Discharge Date Admission Date: April 16, 2025 Subjective NAEO denies chest pains, palpitations or further syncope episodes denies any fevers or chills Physical Exam Constitutional: WD/WN, vitals as above Respiratory: normal respiratory effort, lungs clear to auscultation Cardiovascular: RRR, no murmur, no edema Gastrointestinal (Abdomen): normal bowel sounds, soft, nontender, no hepatosplenomegaly Results & Data Results & Data Vital Signs (Past 12 Hours) Vital Signs Temp Pulse Pulse Resp BP Pulse Ox O2 Del Method 04/19/25 07:37 37 C 80 18 149/86 H 95 Room Air 04/19/25 03:42 36.4 C L 79 20 171/80 H 94 Room Air 04/19/25 01:40 36.5 C 80 20 150/84 H 94 Room Air 04/18/25 21:35 84 04/18/25 20:21 36.3 C L 80 20 144/76 H 94 Room Air Laboratory Results Short CBC 04/19/25 Range/Units 07:48 WBC 8.40 (4.8-10.8) K/ul Hgb 11.3 L (14.0-18.0) g/dl Hct 32.3 L (42.0-52.0) % Plt Count 263 (130-400) K/uL BMP 04/19/25 07:48 Sodium 135 L Potassium 3.7 Chloride 104 Carbon Dioxide 25 BUN 10 Creatinine 0.58 L Glucose 122 H Calcium 9.1 Liver Function 04/19/25 Range/Units 07:48 Total Bilirubin 0.6 (0.2-1.0) mg/dl AST 31 (13-39) U/L ALT 35 (7-52) U/L Alkaline Phosphatase 95 (34-104) U/L Albumin 3.3 L (3.4-5.0) gm/dl Medications Administered Home Medications Medication Instructions Recorded Confirmed Last Taken aspirin 81 mg tablet,delayed 81 mg PO HS 08/15/20 04/16/25 04/14/25 release calcium 600 mg (as 2 tab PO HS 08/15/20 04/16/25 04/14/25 carbonate)-vitamin D3 10 mcg (400 unit) tablet glipizide 10 mg tablet 10 mg PO HS 08/15/20 04/16/25 04/14/25 levothyroxine 50 mcg tablet 50 mcg PO HS 08/15/20 04/16/25 04/14/25 metformin 1,000 mg tablet 1,000 mg PO HS 08/15/20 04/16/25 04/14/25 acetaminophen 500 mg tablet 1,000 mg PO BID 02/02/25 04/16/25 04/02/25 cholecalciferol (vitamin D3) 25 50 mcg PO DAILY 04/14/25 04/16/25 04/14/25 mcg (1,000 unit) capsule (Vitamin D3) atorvastatin 80 mg tablet 80 mg PO HS 04/16/25 04/16/25 Unknown clopidogrel 75 mg tablet 75 mg PO QAM 20 days #20 tabs 04/16/25 04/16/25 Unknown Active Medications Generic Name Dose Route Start Last Admin Trade Name Giels PRN Reason Stop Dose Admin Acetaminophen 1,000 mg 04/17/25 09:00 04/19/25 09:58 Acetaminophen 500 Mg Tab PO 05/17/25 08:59 1,000 mg BID JOSE Administration Aspirin 81 mg 04/17/25 21:00 04/18/25 21:33 Aspirin 81 Mg Ectab PO 05/17/25 20:59 81 mg HS JOSE Administration Clopidogrel Bisulfate 75 mg 04/17/25 09:00 04/19/25 09:55 Clopidogrel Bisulfate 75 Mg Tab PO 05/17/25 08:59 75 mg QAM JOSE Administration Enoxaparin Sodium 40 mg 04/17/25 09:00 04/19/25 09:54 Enoxaparin Inj 40 Mg/0.4 Ml Syr SQ 05/17/25 08:59 40 mg QAM JOSE Administration Daptomycin 500 mg/ Syringe 10 mls @ 5.75 mls/min 04/17/25 19:00 04/18/25 17:57 IV 04/21/25 18:59 5.75 mls/min Q24H JOSE Administration Protocol Insulin Aspart 0 units 04/17/25 02:34 04/19/25 14:52 Insulin Aspart Per Unit Charge SC 05/17/25 02:33 Not Given ACHS JOSE Levothyroxine Sodium 50 mcg 04/17/25 21:00 04/18/25 21:33 Levothyroxine Sodium 50 Mcg Tablet PO 05/17/25 20:59 50 mcg HS JOSE Administration Vitamin D 50 mcg 04/17/25 09:00 04/19/25 09:54 Cholecalciferol 25 Mcg (1000 Units) Tab PO 05/17/25 08:59 50 mcg DAILY JOSE Administration (2) Altered mental status Altered mental status type: disorientation Qualified Code(s): R41.0 - Disorientation, unspecified
[2025-04-19 08:29] LABS: Hematocrit (blood only) 32.3 % (42.0-52.0); Hemoglobin 11.3 g/dl (14.0-18.0); Immature Granulocytes # (auto) 0.04 K/uL (0.01-0.20); Immature Granulocytes % (auto) 0.5 %; Mean Corpuscular Hemoglobin 29.9 pg (25.0-34.0); Mean Corpuscular Volume 85.4 fL (80.0-100.0); Platelet Count 263 K/uL (130-400); RDW Standard Deviation 41.4 fL (36.4-46.3); Red Blood Count 3.78 M/uL (4.70-6.10); White Blood Count 8.40 K/ul (4.8-10.8)
[2025-04-19 08:50] LABS: Alanine Aminotransferase 35.0 U/L (7-52); Albumin Globulin Ratio 1.4 (0.9-2); Alkaline Phosphatase 95.0 U/L (34-104); Anion Gap 6.0 (3-11); Bilirubin,Total 0.6 mg/dl (0.2-1.0); Blood Urea Nitrogen 10.0 mg/dl (6-23); Calcium 9.1 mg/dl (8.6-10.3); Carbon Dioxide 25.0 mmol/L (21-32); Chloride 104.0 mmol/L (98-107); Creatinine Clr Calc Pharmacy 112.8 ml/min; Globulin 2.4 gm/dl (2.5-4.0); Glucose 122.0 mg/dl (70-99(Fasting)); Magnesium 1.8 mg/dl (1.7-2.4); Potassium 3.7 mmol/L (3.5-5.1); Sodium 135.0 mmol/L (136-145); Total Protein 5.7 gm/dl (6.0-8.3)
--- NOTE | 2025-04-19 09:53 | Infectious Disease Consult ---
Date of Service April 19, 2025 Telehealth Information I performed this visit using a real-time telehealth connection between my location and the patients location ([facility]). After connecting through interactive tele-video, patient was identified by name and date of and/or wristband check.Patient (or authorized healthcare printing sales representative) was informed that this was a telemedicine visit and it was being conducted confidentially over secure lines. My office door was closed and no o ne else was present in the room with me.Patient (or authorized healthcare printing sales representative) provided consent to proceed with the visit, expressed an understanding of privacy and security of the telemedicine visit, and gave permission to have a hospital printing sales representative in the room in order to assist with the visit and to conduct portions of the visit, as needed. I informed the patient (or authorized healthcare printing sales representative) that I reviewed their record and presented the opportunity for them to ask any questions regarding the visit today. The patient agreed to participate. bacteremia Assessment & Plan (1) Syncope: Plan: MRI and CT head negative for CVA (2) Gram-positive bacteremia: Plan: Continue Daptomycin he will require a total of 14 days from negative blood cultures Plan Recommend continuing daptomycin while inpatient and can switch to linezolid on discharge to complete 14 days from negative blood cultures .If there are drug- drug interactions with linezolid then I would recommend continuing daptomycin as OP for a total of 14 days from negative blood cultures as TTE and NKECHI were negative .Thank you for allowing us to participate in the care of this patient ID will sign off History of Present Illness History of Present Illness 79 y/o M PMHx valvular heart disease (moderate /mild AR), hypertension, hyperlipidemia, PVD, CVA, possible NPH, DM2 on oral medications, hypothyroidism, BPH, schizoaffective disorder, mood disorder who was found unresponsive in the shower while incarcerated .He had a history of previous syncopal episode in 2021 and was brought to the ER for work up for his syncope .His CT head and MRI of brain did not reveal any ischemic or hemorrhagic event and his blood cultures have grown aerococcus and micrococcus and he is on daptomycin with negative repeat blood cultures .His TTE and NKECHI did not show any vegetations Allergies Allergy/AdvReac Type Severity Reaction Status Date / Time No Known Allergies Allergy Verified 04/14/25 17:53 Home Medications Medication Instructions Recorded Confirmed Type aspirin 81 mg tablet,delayed 81 mg PO HS 08/15/20 04/16/25 History release calcium 600 mg (as 2 tab PO HS 08/15/20 04/16/25 History carbonate)-vitamin D3 10 mcg (400 unit) tablet glipizide 10 mg tablet 10 mg PO HS 08/15/20 04/16/25 History levothyroxine 50 mcg tablet 50 mcg PO HS 08/15/20 04/16/25 History metformin 1,000 mg tablet 1,000 mg PO HS 08/15/20 04/16/25 History acetaminophen 500 mg tablet 1,000 mg PO BID 02/02/25 04/16/25 History cholecalciferol (vitamin D3) 25 50 mcg PO DAILY 04/14/25 04/16/25 History mcg (1,000 unit) capsule (Vitamin D3) atorvastatin 80 mg tablet 80 mg PO HS 04/16/25 04/16/25 History clopidogrel 75 mg tablet 75 mg PO QAM 20 days #20 tabs 04/16/25 04/16/25 Rx Patient History Medical History Hyperlipidemia Hypothyroidism NPH (normal pressure hydrocephalus) Diabetes mellitus Diabetes Schizoaffective disorder Social History Smoking Status: Never smoker Second Hand Exposure: No; Do You Dip or Chew Tobacco: No; Hx Alcohol Use: No Hx Substance Use: No Preferred Language: Venezuelan Communication Ability: Effective Guest Relations Associate Required: No Beliefs That Will Affect Care: None Current Living Situation: Other Current Living Situation Comment: [facility] Feels Safe at Home: Yes Assistive Devices: None Review of Systems Awake alert oriented Physical Exam No respiratory distress Results & Data Vital Signs (Past 12 Hours) Vital Signs Temp Pulse Pulse Resp BP Pulse Ox O2 Del Method 04/19/25 08:40 84 04/19/25 07:37 37 C 80 18 149/86 H 95 Room Air 04/19/25 03:42 36.4 C L 79 20 171/80 H 94 Room Air 04/19/25 01:40 36.5 C 80 20 150/84 H 94 Room Air Laboratory Results Blood Culture Aerobic Preliminary 04/19/25-828 Organism 1 Aerococcus viridans Sens No Sensitivities to Follow Blood Culture PCR Panel If viewing in EMR, results available under LAB Serology tab. Organism 2 Micrococcus luteus Sens No Sensitivities to Follow Blood Culture Aerobic Preliminary 04/19/25 Organism 1 Micrococcus luteus Sens No Sensitivities to Follow Diagnostic Findings IMPRESSION: No diffusion restriction to suggest acute cerebral ischemia. No evidence of acute intracranial hemorrhage.
[2025-04-20 07:37] LABS: Hematocrit (blood only) 31.2 % (42.0-52.0); Hemoglobin 10.7 g/dl (14.0-18.0); Mean Corpuscular Hemoglobin 29.3 pg (25.0-34.0); Mean Corpuscular Volume 85.5 fL (80.0-100.0); Platelet Count 234 K/uL (130-400); RDW Standard Deviation 41.3 fL (36.4-46.3); Red Blood Count 3.65 M/uL (4.70-6.10); White Blood Count 7.23 K/ul (4.8-10.8)
[2025-04-20 08:02] LABS: Anion Gap 7.0 (3-11); Blood Urea Nitrogen 11.0 mg/dl (6-23); Calcium 9.1 mg/dl (8.6-10.3); Carbon Dioxide 26.0 mmol/L (21-32); Chloride 102.0 mmol/L (98-107); Creatinine Clr Calc Pharmacy 106.6 ml/min; Glucose 128.0 mg/dl (70-99(Fasting)); Potassium 3.4 mmol/L (3.5-5.1); Sodium 135.0 mmol/L (136-145)
[2025-04-20] MEDS: POTASSIUM CHLORIDE CRTAB 20 MEQ TABCR PO STA (09:18)
--- NOTE | 2025-04-20 11:47 | Hospitalist Progress Note ---
Date of Service April 20, 2025 Assessment & Plan (1) Syncope: (2) Altered mental status: Plan: Mr. Colindres is a 79 yo gentleman with medical history significant for valvular heart disease (moderate /mild AR), hypertension, hyperlipidemia, PVD, CVA, possible NPH, DM2 on oral medications, hypothyroidism, BPH, schizoaffective disorder, mood disorder admitted for evaluation of syncope. Patient found to have bacteremia. S/p NKECHI on 04/15 noting moderate stenosis ID consult: plan to continue daptomycin while admitted, plans to transition to linezolid upon d/c for 14 days s/p negative blood culture Patient restrained, has not be ambulatory 2/2 safety precautions. Orthostats positive. Still on CLD-->plan to advance. Await final bcx results possible dipo tomorrow #Orthostatic hypotension JUANJO stockings 2L IVF advance diet #Syncope #Bilateral ICA stenosis #Moderate aortic stenosis -- recurrent? last 2 episodes 2021 Per prior hospitalist, discussed with Staff at [facility]:"Patient was taken to the shower by officers, and patient suddenly passed out. No note of chest pain, shortness of breath, palpitations, dizziness. Patient was noted to be pale, blood pressure 128/78, heart rate 114, 95% on room air, respiration 40, blood glucose 236. no note of seizure-like activit. Patient regained consciousness after 2 minutes, no documentation whether the patient was confused after the episode. as per [facility], patient had syncopal episode x 2 back in 2021" Consulted cardiology service: moderate aortic stenosis unlikely to be the etiology of patient's syncope Consulted neurology service: Dr. 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, Plavix, and atorvastatin as per current regimen #GPC Bacteremia, micrococcus luteus, aerococcus viridans -- gram positive cocci clusters x 2 bottles Continue daptomycin while admitted -- s/p NKECHI 04/15 during initial admission, found to have moderate aortic stenosis Risk of endocarditis increased in presence of stenosis Discharge on linezolid for 14 days from negative blood cultures confirm if on antidepressants from [facility]--if so, then will dispo 14 days on daptomycin #Altered mental status #Possible metabolic encephalopathy secondary to bacteremia per officers at bedside, patient is some mostly awake alert and oriented at the correctional facility prior to admission today, patient seems to be oriented x 1-2, answering most questions appropriately continue to monitor closely #Hypoxia resolved CT angiogram chest: No acute PE, no pneumonia or volume overload noted currently on room air, saturating more than 90% monitor closely #Troponin elevation secondary to illness and elevated BP trended down EKG no signs of acute ischemia no cardiac symptoms at present valvular heart disease (moderate /mild AR) -- s/p NKECHI 04/15 hyperlipidemia, on statin Rx PVD, carotid artery disease on imaging from last confinement, patient to follow- up with vascular surgery hx CVA, on antiplatelet Rx hypothyroidism, euthyroid per TSH schizoaffective disorder/mood disorder, not on maintenance medications Hypomagnesemia PT OT eval prior to discharge DVT prophylaxis. Lovenox subcu Full code Admission and Anticipated Discharge Date Admission Date: April 16, 2025 Subjective NAEO reports no pain or concerns denies any chest pain, palpitations or other issues. hasn't stood up or ambulated, agreed to stand up with nursing Physical Exam Constitutional: WD/WN, vitals as above Respiratory: normal respiratory effort, lungs clear to auscultation Cardiovascular: RRR, no murmur, no edema Gastrointestinal (Abdomen): normal bowel sounds, soft, nontender, no hepatosplenomegaly Results & Data Results & Data Vital Signs (Past 12 Hours) Vital Signs Temp Pulse Resp BP Pulse Ox O2 Del Method 04/20/25 07:54 36.7 C 76 16 140/76 91 Room Air 04/20/25 04:00 36.4 C L 74 18 134/74 92 Room Air 04/20/25 00:00 36.5 C 70 20 127/74 95 Room Air (2) Altered mental status Altered mental status type: disorientation Qualified Code(s): R41.0 - Disorientation, unspecified
[2025-04-20] MEDS: SODIUM CHLORIDE 0.9% 1,000 ML IV SCH (13:25)
[2025-04-21] MEDS: LINEZOLID 600 MG TAB PO SCH (08:26)
[2025-04-21 09:39] LABS: Hematocrit (blood only) 26.7 % (42.0-52.0); Hemoglobin 8.9 g/dl (14.0-18.0); Mean Corpuscular Hemoglobin 29.1 pg (25.0-34.0); Mean Corpuscular Volume 87.3 fL (80.0-100.0); Platelet Count 260 K/uL (130-400); RDW Standard Deviation 41.7 fL (36.4-46.3); Red Blood Count 3.06 M/uL (4.70-6.10); White Blood Count 10.02 K/ul (4.8-10.8)
[2025-04-21 09:54] LABS: Anion Gap 4.0 (3-11); Calcium 8.8 mg/dl (8.6-10.3); Carbon Dioxide 23.0 mmol/L (21-32); Chloride 107.0 mmol/L (98-107); Magnesium 1.5 mg/dl (1.7-2.4); Potassium 4.0 mmol/L (3.5-5.1); Sodium 134.0 mmol/L (136-145)
[2025-04-21 10:01] LABS: Blood Urea Nitrogen 27.0 mg/dl (6-23); Creatinine Clr Calc Pharmacy 101.2 ml/min; Glucose 128.0 mg/dl (70-99(Fasting))
[2025-04-21] MEDS: SODIUM CHLORIDE 0.9% 500 ML IV ONE (10:08)
[2025-04-21] MEDS ORDERED: SODIUM PHOSPHATE 3 MMOL/1 ML INFUSION IV STA (10:24)
--- NOTE | 2025-04-21 10:26 | Hospitalist Progress Note ---
Date of Service April 21, 2025 Assessment & Plan (1) Syncope: (2) Altered mental status: Plan: Mr. Colindres is a 79 yo gentleman with medical history significant for valvular heart disease (moderate /mild AR), hypertension, hyperlipidemia, PVD, CVA, possible NPH, DM2 on oral medications, hypothyroidism, BPH, schizoaffective disorder, mood disorder admitted for evaluation of syncope. Patient found to have bacteremia. S/p NKECHI on 04/15 noting moderate stenosis ID consult: plan to continue daptomycin while admitted, plans to transition to linezolid upon d/c for 14 days s/p negative blood culture Patient restrained, has not be ambulatory 2/2 safety precautions. Orthostats positive. Still on CLD-->plan to advance. Await final bcx results possible dipo tomorrow #Acute anemia #Orthostatic hypotension JUANJO stockings multiple days on CLD and s/p IVF resusciation, however, hgb has yet to ever be ~8.9 patient now tachycardic despite IVF CTA on 04/16 without PE on dvt PPx will ordered CT AB/P anemia labs now NPO PPI BID FOBT next steps in management contingent on above labs trend HH, transfuse <8 iso stenosis and vascular disease #Syncope #Bilateral ICA stenosis #Moderate aortic stenosis -- recurrent? last 2 episodes 2021 Per prior hospitalist, discussed with Staff at [facility]:"Patient was taken to the shower by officers, and patient suddenly passed out. No note of chest pain, shortness of breath, palpitations, dizziness. Patient was noted to be pale, blood pressure 128/78, heart rate 114, 95% on room air, respiration 40, blood glucose 236. no note of seizure-like activit. Patient regained consciousness after 2 minutes, no documentation whether the patient was confused after the episode. as per [facility], patient had syncopal episode x 2 back in 2021" Consulted cardiology service: moderate aortic stenosis unlikely to be the etiology of patient's syncope Consulted neurology service: Dr. 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 DIRECTOR OF QUALITY aspirin, Plavix, and atorvastatin as per current regimen #GPC Bacteremia, micrococcus luteus, aerococcus viridans -- gram positive cocci clusters x 2 bottles Continue daptomycin while admitted -- s/p NKECHI 04/15 during initial admission, found to have moderate aortic stenosis Risk of endocarditis increased in presence of stenosis Discharge on linezolid for 14 days from negative blood cultures confirm if on antidepressants from [facility]--if so, then will dispo 14 days on daptomycin #Altered mental status #Possible metabolic encephalopathy secondary to bacteremia per officers at bedside, patient is some mostly awake alert and oriented at the correctional facility prior to admission today, patient seems to be oriented x 1-2, answering most questions appropriately continue to monitor closely #Hypoxia resolved CT angiogram chest: No acute PE, no pneumonia or volume overload noted currently on room air, saturating more than 90% monitor closely #Troponin elevation secondary to illness and elevated BP trended down EKG no signs of acute ischemia no cardiac symptoms at present valvular heart disease (moderate /mild AR) -- s/p NKECHI 04/15 hyperlipidemia, on statin Rx PVD, carotid artery disease on imaging from last confinement, patient to follow- up with vascular surgery hx CVA, on antiplatelet Rx hypothyroidism, euthyroid per TSH schizoaffective disorder/mood disorder, not on maintenance medications Hypomagnesemia PT OT eval prior to discharge DVT prophylaxis. Lovenox subcu Full code Admission and Anticipated Discharge Date Admission Date: April 16, 2025 Subjective NAEO denies any acute concerns however orthostatic day before patient reported bm, but per nurse, no actually bm in days no apparent signs of bleeding noted Physical Exam Constitutional: WD/WN, vitals as above Respiratory: normal respiratory effort, lungs clear to auscultation Cardiovascular: tachycardia Gastrointestinal (Abdomen): normal bowel sounds, soft, nontender, no h epatosplenomegaly soft, nondistended nontender Results & Data Results & Data Vital Signs (Past 12 Hours) Vital Signs Temp Pulse Pulse Resp BP Pulse Ox O2 Del Method 04/21/25 09:38 Room Air 04/21/25 08:17 36.7 C 110 H 18 118/79 96 Room Air 04/21/25 07:00 101 H 04/21/25 03:09 36.7 C 95 H 18 150/82 H 96 Room Air 04/20/25 22:30 37.0 C 99 H 18 157/87 H 97 Room Air Laboratory Results Short CBC 04/21/25 Range/Units 09:22 WBC 10.02 (4.8-10.8) K/ul Hgb 8.9 L (14.0-18.0) g/dl Hct 26.7 L (42.0-52.0) % Plt Count 260 (130-400) K/uL [facility] 04/21/25 09:22 Sodium 134 L Potassium 4.0 Chloride 107 Carbon Dioxide 23 BUN 27 H Creatinine 0.64 Glucose 128 H Calcium 8.8 Medications Administered Home Medications Medication Instructions Recorded Confirmed Last Taken aspirin 81 mg tablet,delayed 81 mg PO HS 08/15/20 04/16/25 04/14/25 release calcium 600 mg (as 2 tab PO HS 08/15/20 04/16/25 04/14/25 carbonate)-vitamin D3 10 mcg (400 unit) tablet glipizide 10 mg tablet 10 mg PO HS 08/15/20 04/16/25 04/14/25 levothyroxine 50 mcg tablet 50 mcg PO HS 08/15/20 04/16/25 04/14/25 metformin 1,000 mg tablet 1,000 mg PO HS 08/15/20 04/16/25 04/14/25 acetaminophen 500 mg tablet 1,000 mg PO BID 02/02/25 04/16/25 04/02/25 cholecalciferol (vitamin D3) 25 50 mcg PO DAILY 04/14/25 04/16/25 04/14/25 mcg (1,000 unit) capsule (Vitamin D3) atorvastatin 80 mg tablet 80 mg PO HS 04/16/25 04/16/25 Unknown clopidogrel 75 mg tablet 75 mg PO QAM 20 days #20 tabs 04/16/25 04/16/25 Unknown Active Medications Generic Name Dose Route Start Last Admin Trade Name Giles PRN Reason Stop Dose Admin Acetaminophen 1,000 mg 04/17/25 09:00 04/21/25 08:08 Acetaminophen 500 Mg Tab PO 05/17/25 08:59 1,000 mg BID JOSE Administration Aspirin 81 mg 04/17/25 21:00 04/20/25 21:47 Aspirin 81 Mg Ectab PO 05/17/25 20:59 81 mg HS JOSE Administration Clopidogrel Bisulfate 75 mg 04/17/25 09:00 04/21/25 08:09 Clopidogrel Bisulfate 75 Mg Tab PO 05/17/25 08:59 75 mg QAM JOSE Administration Enoxaparin Sodium 40 mg 04/17/25 09:00 04/21/25 08:09 Enoxaparin Inj 40 Mg/0.4 Ml Syr SQ 05/17/25 08:59 40 mg QAM JOSE Administration Insulin Aspart 0 units 04/17/25 02:34 04/21/25 08:55 Insulin Aspart Per Unit Charge SC 05/17/25 02:33 Not Given ACHS JOSE Levothyroxine Sodium 50 mcg 04/17/25 21:00 04/20/25 21:47 Levothyroxine Sodium 50 Mcg Tablet PO 05/17/25 20:59 50 mcg HS JOSE Administration Linezolid 600 mg 04/21/25 09:00 04/21/25 08:26 Linezolid 600 Mg Tab PO 05/05/25 08:59 600 mg BID JOSE Administration Vitamin D 50 mcg 04/17/25 09:00 04/21/25 08:09 Cholecalciferol 25 Mcg (1000 Units) Tab PO 05/17/25 08:59 50 mcg DAILY JOSE Administration (2) Altered mental status Altered mental status type: disorientation Qualified Code(s): R41.0 - Disorientation, unspecified
[2025-04-21] MEDS: MAGNESIUM SULFATE / D5W 1 GM/100 ML BAG IV SCH (10:44)
[2025-04-21] MEDS: SODIUM PHOSPHATE 21 MMOL in SODIUM CHLORIDE 0.9% 500 ML IV ONE (10:51)
[2025-04-21 11:14] LABS: Reticulated Hemoglobin 37.0 pg (28.2-36.6); Reticulocytes # 0.060 10^6/uL (0.020-0.100)
[2025-04-21] MEDS: OPTIRAY 320 125ml IV ONE (11:17)
[2025-04-21 11:26] LABS: Bilirubin,Total 0.3 mg/dl (0.2-1.0); Iron 51.0 mcg/dl (35-175); Total Iron Binding Cap Calc 248.0 mcg/dl (250-450); Transferrin 177.0 mg/dl (200-360); Transferrin (FE) Percent Satur 21.0 % (20-50)
[2025-04-21 11:32] LABS: INR 1.1 (0.9-1.1); Prothrombin Time 12.3 Seconds (9.0-12.0)
[2025-04-21] MEDS: PANTOprazole 40 MG/10 ML SYR IV SCH (11:33)
[2025-04-21] MEDS: SODIUM CHLORIDE 0.9% 1,000 ML IV SCH (11:34)
[2025-04-21 11:45] LABS: Ferritin 122.0 ng/ml (8-388)
--- NOTE | 2025-04-21 15:14 | CT Scan Report ---
CT angio abd pelvis wo/w con CLINICAL HISTORY: acute anemia COMPARISON STUDY: 01/26/2025 FINDINGS: Vascular findings: There are moderate atherosclerotic calcifications. No abdominal aortic aneurysm or significant aortic luminal narrowing. Mesenteric and renal arteries are patent. Visualized arterial outflow shows no significant narrowing. ABDOMEN: Gallbladder is surgically absent. Liver, spleen, pancreas, and adrenal glands are unremarkab le. Kidneys show no hydronephrosis. There is wall thickening at the distal stomach and proximal duode num with adjacent inflammation consistent with ulcer or severe gastritis/duodenitis. There is a small increased density finding within the lumen of the duodenum on the precontrast imaging, possible smal l calcification or retained food. No new density or enhancement seen in the region on the postcontras t imaging to suggest acute arterial hemorrhage. Pelvis: Prostate is prominently enlarged. Urinary bladder is mildly distended. Rectum is mildly diste nded with stool. Otherwise there is mild retained stool. No bowel inflammation or obstruction. No cortez e fluid, free air, or abscess. No retroperitoneal hematoma. Osseous structures: Stable height loss at multiple lower thoracic and lumbar vertebral bodies. There is mildly progressive height loss at the T12 vertebral body. There are diffuse spinal degenerative ch anges. Old rib fractures again seen. IMPRESSION: 1. Findings suggestive of ulcer at the distal stomach and proximal duodenum versus severe distal azalia ritis/duodenitis. No active arterial bleeding seen at this site, but this could potentially be a sour ce of slow arterial hemorrhage or venous hemorrhage. No other potential source of hemorrhage identifi ed on this exam. 2. Otherwise as described. ACT 112: Negative or not required by law. Electronically signed by: Nicholas Miranda M.D. 04/21/2025 3:13 PM
[2025-04-21 15:43] LABS: Hematocrit (blood only) 25.0 % (42.0-52.0); Hemoglobin 8.6 g/dl (14.0-18.0)
[2025-04-21] MEDS: PANTOPRAZOLE BOLUS/DRIP IV STA (16:00)
--- NOTE | 2025-04-21 16:14 | Gastrointestinal Consultation ---
Date of Consultation April 21, 2025 History of Present Illness Reason for Consultation: Anemia with possible ulcer on CTA Requesting Physician: Dr. Bo Attending Physician: Emperatriz Bo MD History of Present Illness 79yo male with h/o schizoaffective d/o, T2DM aortic stenosis, carotid artery disease is seen today in hospital for acute anemia with possible ulcer on CTA. Patient was brought to [facility] for syncope event that occurred at [facility]. Per historical records, patient was being escorted to shower when he became unconscious. He was brought to [facility] where he underwent evaluation and was found to be bacteremic. He has been followed by ID and treatment with Daptomycin. Hgb dropped during admission from 12.0g/dl on arrival to now 8.6g/dl 04/21/25. INR 1.1. Iron 51, TIBC 248, Transferrin sat 21%, Ferritin 122. Reticulocyte count mildly elevated at 2.14%. LDH and Bilirubin normal. PT 12.3, INR 1.1. BUN 27, Cr 0.64, Glucose 128, Cl 107, CO2 23, K 4.0, Na 134, LFTs unremarkable. Abdominal CTA IMPRESSION: 1. Findings suggestive of ulcer at the distal stomach and proximal duodenum versus severe distal gastritis/duodenitis. No active arterial bleeding seen at this site, but this could potentially be a source of slow arterial hemorrhage or venous hemorrhage. No other potential source of hemorrhage identified on this exam. 2. Otherwise as described. Allergies Allergy/AdvReac Type Severity Reaction Status Date / Time No Known Allergies Allergy Verified 04/14/25 17:53 Home Medications Medication Instructions Recorded Confirmed Type aspirin 81 mg tablet,delayed 81 mg PO HS 08/15/20 04/16/25 History release calcium 600 mg (as 2 tab PO HS 08/15/20 04/16/25 History carbonate)-vitamin D3 10 mcg (400 unit) tablet glipizide 10 mg tablet 10 mg PO HS 08/15/20 04/16/25 History levothyroxine 50 mcg tablet 50 mcg PO HS 08/15/20 04/16/25 History metformin 1,000 mg tablet 1,000 mg PO HS 08/15/20 04/16/25 History acetaminophen 500 mg tablet 1,000 mg PO BID 02/02/25 04/16/25 History cholecalciferol (vitamin D3) 25 50 mcg PO DAILY 04/14/25 04/16/25 History mcg (1,000 unit) capsule (Vitamin D3) atorvastatin 80 mg tablet 80 mg PO HS 04/16/25 04/16/25 History clopidogrel 75 mg tablet 75 mg PO QAM 20 days #20 tabs 04/16/25 04/16/25 Rx Patient History Medical History Hyperlipidemia Hypothyroidism NPH (normal pressure hydrocephalus) Diabetes mellitus Diabetes Schizoaffective disorder Social History Smoking Status: Never smoker Second Hand Exposure: No; Do You Dip or Chew Tobacco: No; Hx Alcohol Use: No Hx Substance Use: No Preferred Language: Slovenian Communication Ability: Effective Marine Architect Required: No Beliefs That Will Affect Care: None Current Living Situation: Other Current Living Situation Comment: [facility] Feels Safe at Home: Yes Assistive Devices: None Results & Data Vital Signs (Past 12 Hours) Vital Signs Temp Pulse Pulse Resp BP Pulse Ox O2 Del Method 04/21/25 15:24 98.4 F 96 H 20 121/81 99 Room Air 04/21/25 13:12 93 H 04/21/25 12:16 98.1 F 103 H 19 139/83 95 Room Air 04/21/25 09:38 Room Air 04/21/25 08:17 98.1 F 110 H 18 118/79 96 Room Air 04/21/25 07:00 101 H PG Care Time/CCT Total # of Minutes Spent Total Time Spent with Patient: Total time spent is greater than 50% in coordination of care (as documented) at patient's floor/unit and/or counseling patient: Coding
--- NOTE | 2025-04-21 16:23 | Communication Note ---
Date of Service: April 21, 2025 Late Consult - 79yo male with h/o schizoaffective d/o, T2DM, aortic stenosis, carotid artery disease is seen today in hospital for acute anemia with possible ulcer on CTA. Patient was brought to [facility] for syncope event that occurred at [facility]. Per historical records, patient was being escorted to shower when he became unconscious. He was brought to [facility] where he underwent evaluation and was found to be bacteremic. He has been followed by ID and treatment with Daptomycin. Hgb dropped during admission from 12.0g/dl on arrival to now 8.6g/dl 04/21/25. INR 1.1. Iron 51, TIBC 248, Transferrin sat 21%, Ferritin 122. Reticulocyte count mildly elevated at 2.14%. LDH and Bilirubin normal. PT 12.3, INR 1.1. BUN 27, Cr 0.64, Glucose 128, Cl 107, CO2 23, K 4.0, Na 134, LFTs unremarkable. Abdominal CTA IMPRESSION: 1. Findings suggestive of ulcer at the distal stomach and proximal duodenum versus severe distal gastritis/duodenitis. No active arterial bleeding seen at this site, but this could potentially be a source of slow arterial hemorrhage or venous hemorrhage. No other potential source of hemorrhage identified on this exam. 2. Otherwise as described. Case reviewed with Dr. Payne. Recommendations No signs of active bleeding on CTA. No bee hematochezia, melena and/or coffee grounds emesis. Continue to monitor for bee GI bleeding. Monitor CBC and transfuse as ordered by primary hospital team. Keep NPO Continue with PPI BID therapy. Plan for assessment in AM for consideration of add on EGD.
[2025-04-21] MEDS ORDERED: Nursing to Pharmacy Communication SCH (17:00)
[2025-04-21] MEDS: PANTOprazole 40 MG in DEXTROSE 5% MINI-B 100 ML IV SCH (17:06)
[2025-04-21] MEDS: INSULIN ASPART PER UNIT CHARGE SC SCH (17:06)
[2025-04-21] MEDS: DAPTOmycin 500 MG in SYRINGE 0 ML IV SCH (21:39)
[2025-04-22] MEDS ORDERED: Nursing to Pharmacy Communication SCH ×2 (07:30→18:00)
--- NOTE | 2025-04-22 08:52 | Gastrointestinal Consultation ---
Date of Consultation April 22, 2025 Assessment & Plan (1) Melena: (2) Anemia: Plan 79yo male with h/o schizoaffective d/o, T2DM, aortic stenosis, carotid artery disease is seen today in hospital for acute anemia with possible ulcer on CTA. (1) Melena 2 weeks ago noted. Anemia and Ulcer on CTA. - Discussed options for treatment and observation vs. EGD. Reviewed risks of procedure and patient would like to proceed. - He is already NPO. - Continue with PPI. - Case reviewed with Dr. Payne. We'll add on for EGD today. Supervising Physician Co-Signing Physician Notes Following H&H. History of Advil maybe Aleve use. CT suggest possibility of a ulcer in the duodenum. EGD today to evaluate for source of bleeding and potential endoscopic intervention if required. Patient has received a unit of packed cells for hemoglobin of 6.4. Second unit currently hanging and infusing. Patient is pale this is not hypotensive or tachycardic History of Present Illness Reason for Consultation: Anemia. CT with possible ulcer Requesting Physician: Dr. Bo Attending Physician: Zach Mason MD History of Present Illness 79yo male with h/o schizoaffective d/o, T2DM, aortic stenosis, carotid artery disease is seen today in hospital for acute anemia with possible ulcer on CTA. Patient was brought to [facility] for syncope event that occurred at [facility]. Per historical records, patient was being escorted to shower when he became unconscious. He was brought to [facility] where he underwent evaluation and was found to be bacteremic. He has been followed by ID and treatment with Daptomycin. Today patient reports that he's feeling well. He reports that he had melena x 2 about 2 weeks ago. He denies any fevers, chills, SOB, abdominal pain, N/V/D, melena or hematochezia at this time. He denies any tobacco, alcohol, drug or NSAID use. No family history of IBD, Celiac disease. Hgb dropped during admission from 12.0g/dl on arrival to now 8.6g/dl 04/21/25. INR 1.1. Iron 51, TIBC 248, Transferrin sat 21%, Ferritin 122. Reticulocyte count mildly elevated at 2.14%. LDH and Bilirubin normal. PT 12.3, INR 1.1. BUN 27, Cr 0.64, Glucose 128, Cl 107, CO2 23, K 4.0, Na 134, LFTs unremarkable. Abdominal CTA IMPRESSION: 1. Findings suggestive of ulcer at the distal stomach and proximal duodenum versus severe distal gastritis/duodenitis. No active arterial bleeding seen at this site, but this could potentially be a source of slow arterial hemorrhage or venous hemorrhage. No other potential source of hemorrhage identified on this exam. 2. Otherwise as described. Allergies Allergy/AdvReac Type Severity Reaction Status Date / Time No Known Allergies Allergy Verified 04/14/25 17:53 Home Medications Medication Instructions Recorded Confirmed Type aspirin 81 mg tablet,delayed 81 mg PO HS 08/15/20 04/16/25 History release calcium 600 mg (as 2 tab PO HS 08/15/20 04/16/25 History carbonate)-vitamin D3 10 mcg (400 unit) tablet glipizide 10 mg tablet 10 mg PO HS 08/15/20 04/16/25 History levothyroxine 50 mcg tablet 50 mcg PO HS 08/15/20 04/16/25 History metformin 1,000 mg tablet 1,000 mg PO HS 08/15/20 04/16/25 History acetaminophen 500 mg tablet 1,000 mg PO BID 02/02/25 04/16/25 History cholecalciferol (vitamin D3) 25 50 mcg PO DAILY 04/14/25 04/16/25 History mcg (1,000 unit) capsule (Vitamin D3) atorvastatin 80 mg tablet 80 mg PO HS 04/16/25 04/16/25 History clopidogrel 75 mg tablet 75 mg PO QAM 20 days #20 tabs 04/16/25 04/16/25 Rx Patient History Medical History Anemia Melena Hyperlipidemia Hypothyroidism NPH (normal pressure hydrocephalus) Diabetes mellitus Diabetes Schizoaffective disorder Social History Smoking Status: Never smoker Second Hand Exposure: No; Do You Dip or Chew Tobacco: No; Hx Alcohol Use: No Hx Substance Use: No Preferred Language: Lao Communication Ability: Effective Hand Bulldozer Required: No Beliefs That Will Affect Care: None Current Living Situation: Other Current Living Situation Comment: [facility] Feels Safe at Home: Yes Assistive Devices: None Review of Systems Review of Systems: See HPI Physical Exam Physical Exam: Constitutional: NAD. Alert. Answering questions appropriately. Respiratory: Breathing is even, non-labored. Lungs tiwari are clear to auscultation anteriorly. Cardiovascular: Regular Rate and Rhythm, no murmurs, rubs or gallops appreciated. Gastrointestinal (Abdomen): Normoactive bowel sounds x4, soft, non-distended, non-tender. Musculoskeletal: Lying in bed comfortably. No peripheral edema. Results & Data Vital Signs (Past 12 Hours) Vital Signs Temp Pulse Pulse Resp BP Pulse Ox O2 Del Method 04/22/25 08:31 98.1 F 95 H 20 118/71 98 Room Air 04/22/25 03:02 98.8 F 98 H 20 127/77 93 Room Air 04/21/25 23:00 98.6 F 92 H 18 123/80 96 Room Air 04/21/25 21:54 98 H PG Care Time/CCT Total # of Minutes Spent Total Time Spent with Patient: Total time spent is greater than 50% in coordination of care (as documented) at patient's floor/unit and/or counseling patient: Coding Level of Care Code 15372 IN/OBS CONSULT LVL 3,45M Diagnoses Melena K92.1 Anemia D64.9
[2025-04-22 10:34] LABS: Hematocrit (blood only) 18.7 % (42.0-52.0); Hemoglobin 6.4 g/dl (14.0-18.0); Mean Corpuscular Hemoglobin 29.9 pg (25.0-34.0); Mean Corpuscular Volume 87.4 fL (80.0-100.0); Platelet Count 219 K/uL (130-400); RDW Standard Deviation 43.5 fL (36.4-46.3); Red Blood Count 2.14 M/uL (4.70-6.10); White Blood Count 5.42 K/ul (4.8-10.8)
[2025-04-22] MEDS ORDERED: SODIUM CHLORIDE 0.9% 100 ML IV PRN (10:40)
[2025-04-22 11:29] LABS: Anion Gap 2.0 (3-11); Bilirubin,Total 0.4 mg/dl (0.2-1.0); Calcium 8.4 mg/dl (8.6-10.3); Carbon Dioxide 23.0 mmol/L (21-32); Chloride 110.0 mmol/L (98-107); Magnesium 1.7 mg/dl (1.7-2.4); Potassium 4.0 mmol/L (3.5-5.1); Sodium 135.0 mmol/L (136-145)
[2025-04-22 11:37] LABS: Alanine Aminotransferase 18.0 U/L (7-52); Albumin Globulin Ratio 1.6 (0.9-2); Alkaline Phosphatase 68.0 U/L (34-104); Blood Urea Nitrogen 15.0 mg/dl (6-23); Creatinine Clr Calc Pharmacy 95.8 ml/min; Globulin 1.7 gm/dl (2.5-4.0); Glucose 133.0 mg/dl (70-99(Fasting)); Total Protein 4.4 gm/dl (6.0-8.3)
[2025-04-22] MEDS: ACETAMINOPHEN 325 MG TAB PO ONE (11:48)
[2025-04-22] MEDS: diphenhydrAMINE Capsule 25 MG CAP PO ONE (11:49)
--- NOTE | 2025-04-22 16:12 | Anesthesiology Consultation ---
Date of Service April 22, 2025 Assessment & Plan Chart Review Chart Review: Acceptable Risk for Surgery and Patient NOT seen in Pre Admission Testing Consults Requested none ASA ASA4 Proposed Anesthesia Anesthesia Type: MAC Risk / Benefits Reviewed With: PT / POA / Parent / Guardian, Accepts Plan and Informed Consent Obtained History Surgery Operation Date: 04/22/25 17:20 Proposed Procedures p Esophagogastroduodenoscopy Dr. Elmer Payne MD Height/Weight Height: 5 ft 7 in Weight: 93 kg Allergies Allergy/AdvReac Type Severity Reaction Status Date / Time No Known Allergies Allergy Verified 04/14/25 17:53 Medications Home Medications Medication Instructions Recorded Confirmed Last Taken aspirin 81 mg tablet,delayed 81 mg PO HS 08/15/20 04/16/25 04/14/25 release calcium 600 mg (as 2 tab PO HS 08/15/20 04/16/25 04/14/25 carbonate)-vitamin D3 10 mcg (400 unit) tablet glipizide 10 mg tablet 10 mg PO HS 08/15/20 04/16/25 04/14/25 levothyroxine 50 mcg tablet 50 mcg PO HS 08/15/20 04/16/25 04/14/25 metformin 1,000 mg tablet 1,000 mg PO HS 08/15/20 04/16/25 04/14/25 acetaminophen 500 mg tablet 1,000 mg PO BID 02/02/25 04/16/25 04/02/25 cholecalciferol (vitamin D3) 25 50 mcg PO DAILY 04/14/25 04/16/25 04/14/25 mcg (1,000 unit) capsule (Vitamin D3) atorvastatin 80 mg tablet 80 mg PO HS 04/16/25 04/16/25 Unknown clopidogrel 75 mg tablet 75 mg PO QAM 20 days #20 tabs 04/16/25 04/16/25 Unknown Active Medications Generic Name Dose Route Start Last Admin Trade Name Freq PRN Reason Stop Dose Admin Acetaminophen 1,000 mg 04/17/25 09:00 04/22/25 09:10 Acetaminophen 500 Mg Tab PO 05/17/25 08:59 Not Given BID JOSE Acetaminophen 650 mg 04/22/25 10:40 04/22/25 11:48 Acetaminophen 325 Mg Tab PO 04/22/25 18:41 650 mg PRE-TREAT ONE Administration Aspirin 81 mg 04/17/25 21:00 04/20/25 21:47 Aspirin 81 Mg Ectab PO 05/17/25 20:59 81 mg HS JOSE Administration Clopidogrel Bisulfate 75 mg 04/17/25 09:00 04/22/25 09:10 Clopidogrel Bisulfate 75 Mg Tab PO 05/17/25 08:59 Not Given QAM JOSE Diphenhydramine HCl 25 mg 04/22/25 10:40 04/22/25 11:49 Diphenhydramine Capsule 25 Mg Cap PO 04/22/25 18:41 25 mg PRE-TREAT ONE Administration Enoxaparin Sodium 40 mg 04/17/25 09:00 04/21/25 08:09 Enoxaparin Inj 40 Mg/0.4 Ml Syr SQ 05/17/25 08:59 40 mg QAM JOSE Administration Pantoprazole Sodium 40 mg in 10 mls @ 5 mls/min 04/21/25 10:45 04/21/25 11:33 Protonix IV 05/21/25 10:44 5 mls/min BID JOSE Administration Daptomycin 500 mg/ Syringe 10 mls @ 5 mls/min 04/21/25 20:00 04/21/25 21:39 IV 05/05/25 19:59 5 mls/min Q24H JOSE Administration Protocol Pantoprazole Sodium 40 mg/ 100 mls @ 20 mls/hr 04/21/25 16:00 04/22/25 11:51 Dextrose IV 05/21/25 15:59 8 mg/hr Q5H JOSE 20 mls/hr Administration 8 MG/HR Insulin Aspart 0 units 04/21/25 18:00 04/22/25 12:33 Insulin Aspart Per Unit Charge SC 05/17/25 02:33 1 units Q6 JOSE Administration Levothyroxine Sodium 50 mcg 04/17/25 21:00 04/21/25 21:35 Levothyroxine Sodium 50 Mcg Tablet PO 05/17/25 20:59 Not Given HS JOSE Vitamin D 50 mcg 04/17/25 09:00 04/22/25 09:10 Cholecalciferol 25 Mcg (1000 Units) Tab PO 05/17/25 08:59 Not Given DAILY JOSE NPO Date Last Intake of Fluids: 04/21/25 Time Last Intake of Fluids: 19:00 Date Last Intake of Solids: 04/21/25 Time Last Intake of Solids: 19:00 Past Medical History Medical History Anemia Melena Hyperlipidemia Hypothyroidism NPH (normal pressure hydrocephalus) Diabetes mellitus Diabetes Schizoaffective disorder Exercise / Class Metabolic Activity III < 4 Walking/Shop/Light housework Past Anesthesia History No Hx of Anesthesia Complications and No Family Hx of Anesthesia Complications History of PONV No Hx of PONV and No Hx of Motion Sickness Social History Smoking Status: Never smoker Do You Dip or Chew Tobacco: No Hx Alcohol Use: No Hx Substance Use: No substance use type: does not use Review of Systems ROS Unobtainable: All systems reviewed & are unremarkable except as noted in HPI & below Physical Exam Vital Signs Last Vital Signs Temp 36.9 C 04/22/25 15:41 Pulse 83 04/22/25 15:41 Resp 20 04/22/25 15:41 BP 123/74 04/22/25 15:41 Pulse Ox 99 04/22/25 15:41 O2 Del Method Room Air 04/22/25 12:00 O2 Flow Rate 2 04/18/25 20:00 Testing Laboratory Results 04/22/25 10:02 04/22/25 10:02 PT 12.3 Seconds (9.0-12.0) H 04/21/25 10:41 INR 1.1 (0.9-1.1) 04/21/25 10:41 APTT 28 Seconds (21-31) 04/16/25 20:23 Urine Color Yellow 04/16/25 20:05 Urine Appearance Clear (Clear) 04/16/25 20:05 Urine pH 5.5 (4.5-7.5) 04/16/25 20:05 Ur Specific Forrest 1.024 (1.000-1.030) 04/16/25 20:05 Urine Protein Negative (Negative) 04/16/25 20:05 Urine Glucose (UA) Negative (Negative) 04/16/25 20:05 Urine Ketones Trace (Negative) H 04/16/25 20:05 Urine Nitrite Negative (Negative) 04/16/25 20:05 Ur Leukocyte Esterase Negative (Negative) 04/16/25 20:05 Blood Type A Positive 04/21/25 11:28 Antibody Screen NEGATIVE 04/21/25 11:28 04/16/25 20:23 Aerobic Blood Culture - Final Blood Micrococcus luteus Anaerobic Blood Culture - Final No growth in Anaerobic bottle after 5 days. 04/16/25 20:23 Aerobic Blood Culture - Final Blood Aerococcus viridans Micrococcus luteus Anaerobic Blood Culture - Final No growth in Anaerobic bottle after 5 days. 04/19/25 07:58 Aerobic Blood Culture - Preliminary Blood No growth in Aerobic bottle after 48 hours. Anaerobic Blood Culture - Preliminary No growth in Anaerobic bottle after 48 hours. 04/19/25 07:48 Aerobic Blood Culture - Preliminary Blood No growth in Aerobic bottle after 48 hours. Anaerobic Blood Culture - Preliminary No growth in Anaerobic bottle after 48 hours. 04/22/25 04/22/25 11:57 06:37 POC Glucose 141 H 159 H Electrocardiogram Date: 04/16/25 Sinus tachycardia Minimal voltage criteria for LVH, may be normal variant ( R in aVL ) Anteroseptal infarct (cited on or before 26-Jan-2025) Abnormal ECG When compared with ECG of 14-Apr-2025 16:51, No significant change was found Confirmed by Ines Felix ([id number]) on 04/18/2025 8:01:42 AM Echocardiogram Date: 04/15/25 EF: 55-60 LV Function: normal Valvular Disease: + (moderate)
--- NOTE | 2025-04-22 16:54 | Communication Note ---
Date of Service: April 22, 2025 EGD Severe distal esophagitis with denuded ulcerated mucosa potential Cerda's distal third of the esophagus. There is patchy gastritis. Along the high lesser curvature there is a deep cratered ulcer measuring 3 x 4 cm. Fibrinous base but no visible vessels. No active bleeding. Biopsy x 6 along the rolling edge of the ulcer and submitted for histology. Potentially neoplasm. There is also a 3 x 2 cm duodenal ulcer without visible vessel. Biopsies were done in the antrum for H. pylori. There is a history of NSAID use. Plan IV Protonix for 48 hours. Transfuse as needed. Avoid aspirin or NSAIDs. Transfuse for hemoglobin less than or equal to 7. Clear liquids
--- NOTE | 2025-04-22 17:01 | GI REPORT ---
[facility] Patient: MALACHI FREY : 1945 Sex at : Male Age: 79 Years Procedure: Upper GI endoscopy Date: 04/22/2025 Attending Physician: Prince Payne MD Referring MD: Dora Mason Indications: - Suspected upper gastrointestinal bleeding Medications: - Monitored Anesthesia Care Complications: - No immediate complications. Estimated Blood Loss: - Estimated blood loss was minimal. Procedure: - The egd scope was introduced through the mouth and advanced to the second part of the duodenum. - The upper GI endoscopy was accomplished without difficulty. - The patient tolerated the procedure well. Findings: - Savary-Low Grade IV (Grade I-III, complicated by ulcer(s), stricture(s), or shortening) esophagitis with no bleeding was found in the lower third of the esophagus. Biopsies were taken with a cold forceps for histology. Estimated blood loss was minimal. - One non-bleeding cratered gastric ulcer with pigmented material was found on the lesser curvature of the gastric body. The lesion was 30 mm by 30 mm in largest dimension. Biopsies were taken with a cold forceps for histology. Estimated blood loss was minimal. - Patchy mild inflammation characterized by erosions and erythema was found in the entire examined stomach. Biopsies were taken with a cold forceps for Helicobacter pylori testing. Estimated blood loss was minimal. - One non-bleeding cratered duodenal ulcer with no stigmata of bleeding was found in the duodenal bulb. The lesion was 30 mm by 20 mm in largest dimension. Impression: - Savary-Low Grade IV reflux esophagitis with no bleeding. Rule out Cerda's esophagus. Biopsied. - Non-bleeding gastric ulcer with pigmented material. Biopsied. - Gastritis, characterized by erosions and erythema. Biopsied. - Non-bleeding duodenal ulcer with no stigmata of bleeding. Recommendation: - Await pathology results. - Avoid aspirin or NSAIDs. These ulcers are large and deep and at significant risk of rebleeding. Should avoid Plavix Lovenox and NSAIDs. Continue IV PPI drip for 48 hours. Clear liquids until clear no further bleeding. Procedure Code(s): - 15311, Esophagogastroduodenoscopy, flexible, transoral; with biopsy, single or multiple Diagnosis Code(s): - K21.00, Gastro-esophageal reflux disease with esophagitis, without bleeding - K25.9, Gastric ulcer, unspecified as acute or chronic, without hemorrhage or perforation - K29.70, Gastritis, unspecified, without bleeding - K26.9, Duodenal ulcer, unspecified as acute or chronic, without hemorrhage or perforation CPT(R) - 2023 copyright [employer]. All Rights Reserved. The CPT codes, CCI edits and ICD codes generated are intended as suggestions and were generated based on input data. These codes are preliminary and upon technical testing engineer review may be revised to meet current compliance and payer requirements. The provider is responsible for the final determination of appropriate codes, and modifiers. Prince Payne MD This document has been electronically signed. Note Initiated:04/22/2025 Note Completed:04/22/2025 5:00 PM \\[email or web address]\Central\InterfaceData\Data\Provation\Results\LIVE\[id number]
--- NOTE | 2025-04-22 17:11 | Anesthesiology Progress Note ---
Date of Service April 22, 2025 Anesthesia Post Procedure Vital Signs Vital Signs: Temp Pulse Pulse Resp BP BP Pulse Ox 04/22/25 17:09 79 20 126/70 100 04/22/25 16:54 80 16 116/65 98 04/22/25 16:24 80 14 125/74 100 04/22/25 16:10 81 23 122/65 98 04/22/25 16:03 36.8 C 86 17 116/62 100 04/22/25 15:41 36.9 C 83 20 123/74 99 04/22/25 15:26 36.6 C 81 20 111/71 97 04/22/25 15:09 36.6 C 83 120/74 98 04/22/25 14:29 36.5 C 82 20 119/70 96 04/22/25 14:13 36.8 C 81 20 121/74 99 04/22/25 13:54 85 04/22/25 13:29 36.5 C 83 20 114/72 97 04/22/25 13:14 36.4 C L 80 18 107/66 98 04/22/25 12:59 36.4 C L 81 20 118/72 99 04/22/25 12:44 37 C 83 20 107/73 95 04/22/25 12:43 37 C 83 20 107/73 95 04/22/25 12:28 36.6 C 84 20 101/64 93 04/22/25 12:00 37.0 C 84 20 125/66 95 04/22/25 09:15 04/22/25 08:31 36.7 C 95 H 20 118/71 98 04/22/25 07:30 100 H 04/22/25 03:02 37.1 C 98 H 20 127/77 93 04/21/25 23:00 37.0 C 92 H 18 123/80 96 04/21/25 21:54 98 H 04/21/25 19:30 36.8 C 100 H 18 116/78 93 O2 Del Method 04/22/25 17:09 Room Air 04/22/25 16:54 Room Air 04/22/25 16:24 Room Air 04/22/25 16:10 Room Air 04/22/25 16:03 Room Air 04/22/25 15:41 04/22/25 15:26 04/22/25 15:09 04/22/25 14:29 04/22/25 14:13 04/22/25 13:54 04/22/25 13:29 04/22/25 13:14 04/22/25 12:59 04/22/25 12:44 04/22/25 12:43 04/22/25 12:28 04/22/25 12:00 Room Air 04/22/25 09:15 Room Air 04/22/25 08:31 Room Air 04/22/25 07:30 04/22/25 03:02 Room Air 04/21/25 23:00 Room Air 04/21/25 21:54 04/21/25 19:30 Room Air Transfer of Care Handoff Completed per policy Notes Mental Status: alert / awake / arousable Patient Amnestic to Procedure: Yes Nausea / Vomiting: adequately controlled Pain: adequately controlled Airway Patency, RR, SpO2: stable & adequate BP & HR: stable & adequate Hydration State: stable & adequate Anesthetic Complications: no major complications apparent and Pt Satisfied with anesthetic care
--- NOTE | 2025-04-22 17:40 | Hospitalist Progress Note ---
Date of Service April 22, 2025 Assessment & Plan (1) Syncope: (2) Altered mental status: Plan: Mr. Colindres is a 79 yo gentleman with medical history significant for valvular heart disease (moderate /mild AR), hypertension, hyperlipidemia, PVD, CVA, possible NPH, DM2 on oral medications, hypothyroidism, BPH, schizoaffective disorder, mood disorder admitted for evaluation of syncope. Patient found to have bacteremia. S/p NKECHI on 04/15 noting moderate stenosis ID consult: plan to continue daptomycin while admitted, plans to transition to linezolid upon d/c for 14 days s/p negative blood culture Patient restrained, has not be ambulatory 2/2 safety precautions. Orthostats positive. Still on CLD-->plan to advance. Await final bcx results possible dipo tomorrow #Acute anemia #Orthostatic hypotension JUANJO stockings multiple days on CLD and s/p IVF resusciation, however, hgb has yet to ever be ~8.9 patient now tachycardic despite IVF CTA on 04/16 without PE on dvt PPx will ordered CT AB/P anemia labs now NPO PPI BID FOBT next steps in management contingent on above labs trend HH, transfuse <8 iso stenosis and vascular disease 04/22 Hg trended down to 6.4 2 units pRBC ordered repeat hemoglobin pending Status post EGDChronic esophagitis, gastric and duodenal ulcer Continue Protonix drip Add sucralfate Advance diet accordingly aspirin, Plavix, Lovenox on hold #Syncope #Bilateral ICA stenosis #Moderate aortic stenosis -- recurrent? last 2 episodes 2021 Per prior hospitalist, discussed with Staff at [facility]:"Patient was taken to the shower by officers, and patient suddenly passed out. No note of chest pain, shortness of breath, palpitations, dizziness. Patient was noted to be pale, blood pressure 128/78, heart rate 114, 95% on room air, respiration 40, blood glucose 236. no note of seizure-like activit. Patient regained consciousness after 2 minutes, no documentation whether the patient was confused after the episode. as per [facility], patient had syncopal episode x 2 back in 2021" Consulted cardiology service: moderate aortic stenosis unlikely to be the etiology of patient's syncope Consulted neurology service: Dr. 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 as per current regimen #GPC Bacteremia, micrococcus luteus, aerococcus viridans -- gram positive cocci clusters x 2 bottles Continue daptomycin while admitted -- s/p NKECHI 04/15 during initial admission, found to have moderate aortic stenosis Risk of endocarditis increased in presence of stenosis Discharge on linezolid for 14 days from negative blood cultures confirm if on antidepressants from [facility]--if so, then will dispo 14 days on daptomycin #Altered mental status #Possible metabolic encephalopathy secondary to bacteremia per officers at bedside, patient is some mostly awake alert and oriented at the correctional facility prior to admission today, patient seems to be oriented x 1-2, answering most questions appropriately continue to monitor closely #Hypoxia resolved CT angiogram chest: No acute PE, no pneumonia or volume overload noted currently on room air, saturating more than 90% monitor closely #Troponin elevation secondary to illness and elevated BP trended down EKG no signs of acute ischemia no cardiac symptoms at present valvular heart disease (moderate /mild AR) -- s/p NKECHI 04/15 hyperlipidemia, on statin Rx PVD, carotid artery disease on imaging from last confinement, patient to follow-up with vascular surgery hx CVA, on antiplatelet Rx hypothyroidism, euthyroid per TSH schizoaffective disorder/mood disorder, not on maintenance medications Hypomagnesemia PT OT eval prior to discharge DVT prophylaxis. Lovenox subcu Full code Admission and Anticipated Discharge Date Admission Date: April 16, 2025 Subjective ff up for anemia, bacteremia, etc seen resting in bed, comfortable s/p EGD states he feels fine overall denies abdominal pain no melena/hematochezia no chest pain, dyspnea, palpitations, dizziness no other symptoms Review of Systems Review of Systems: all noted and negative except for above Physical Exam Physical Exam: General- oriented x 1-2, not in distress, speaks in sentences with no effort or accessory muscle use Eyes- anicteric Neck- no JVD Lungs- clear breath sounds bilaterally, no rales/wheezes Heart- normal rate, regular rhythm; no murmurs Abdomen- normal bowel sounds, nondistended, soft, nontender Extremities- no pretibial edema, no calf tenderness Neuro- alert, oriented x 1-2; no gross focal neurologic deficits Skin- warm & dry Results & Data Results & Data Vital Signs (Past 12 Hours) Vital Signs Temp Pulse Pulse Resp BP BP Pulse Ox 04/22/25 17:24 79 18 124/72 99 04/22/25 17:09 79 20 126/70 100 04/22/25 16:54 80 16 116/65 98 04/22/25 16:24 80 14 125/74 100 04/22/25 16:10 81 23 122/65 98 04/22/25 16:03 36.8 C 86 17 116/62 100 04/22/25 15:41 36.9 C 83 20 123/74 99 04/22/25 15:26 36.6 C 81 20 111/71 97 04/22/25 15:09 36.6 C 83 120/74 98 04/22/25 14:29 36.5 C 82 20 119/70 96 04/22/25 14:13 36.8 C 81 20 121/74 99 04/22/25 13:54 85 04/22/25 13:29 36.5 C 83 20 114/72 97 04/22/25 13:14 36.4 C L 80 18 107/66 98 04/22/25 12:59 36.4 C L 81 20 118/72 99 04/22/25 12:44 37 C 83 20 107/73 95 04/22/25 12:43 37 C 83 20 107/73 95 04/22/25 12:28 36.6 C 84 20 101/64 93 04/22/25 12:00 37.0 C 84 20 125/66 95 04/22/25 09:15 04/22/25 08:31 36.7 C 95 H 20 118/71 98 04/22/25 07:30 100 H O2 Del Method 04/22/25 17:24 Room Air 04/22/25 17:09 Room Air 04/22/25 16:54 Room Air 04/22/25 16:24 Room Air 04/22/25 16:10 Room Air 04/22/25 16:03 Room Air 04/22/25 15:41 04/22/25 15:26 04/22/25 15:09 04/22/25 14:29 04/22/25 14:13 04/22/25 13:54 04/22/25 13:29 04/22/25 13:14 04/22/25 12:59 04/22/25 12:44 04/22/25 12:43 04/22/25 12:28 04/22/25 12:00 Room Air 04/22/25 09:15 Room Air 04/22/25 08:31 Room Air 04/22/25 07:30 all noted and reviewed including below (2) Altered mental status Altered mental status type: disorientation Qualified Code(s): R41.0 - Disorientation, unspecified
[2025-04-22] MEDS ORDERED: INSULIN ASPART PER UNIT CHARGE SC SCH (18:00)
[2025-04-22] MEDS: INSULIN ASPART PER UNIT CHARGE SC SCH (18:36)
[2025-04-22 19:41] LABS: Hematocrit (blood only) 24.6 % (42.0-52.0); Hemoglobin 8.4 g/dl (14.0-18.0)
[2025-04-22] MEDS: SUCRALFATE 1 GM/10 ML UDC PO SCH (20:22)
[2025-04-22] MEDS: LIDOCAINE 2% 2 ML VIAL/AMP(20MG/ML) INFIL ONE (20:28)
[2025-04-22] MEDS: PROPOFOL IV EMULSION 10 MG/ML 20 ML VIAL IV ONE (21:49)
[2025-04-23 00:48] LABS: Hematocrit (blood only) 25.1 % (42.0-52.0); Hemoglobin 8.4 g/dl (14.0-18.0)
[2025-04-23 08:10] LABS: Hematocrit (blood only) 25.0 % (42.0-52.0); Hemoglobin 8.7 g/dl (14.0-18.0); Mean Corpuscular Hemoglobin 29.7 pg (25.0-34.0); Mean Corpuscular Volume 85.3 fL (80.0-100.0); Platelet Count 226 K/uL (130-400); RDW Standard Deviation 45.1 fL (36.4-46.3); Red Blood Count 2.93 M/uL (4.70-6.10); White Blood Count 5.32 K/ul (4.8-10.8)
[2025-04-23 08:49] LABS: Alanine Aminotransferase 23.0 U/L (7-52); Albumin Globulin Ratio 1.5 (0.9-2); Alkaline Phosphatase 80.0 U/L (34-104); Anion Gap 5.0 (3-11); Bilirubin,Total 0.6 mg/dl (0.2-1.0); Blood Urea Nitrogen 7.0 mg/dl (6-23); Calcium 8.8 mg/dl (8.6-10.3); Carbon Dioxide 24.0 mmol/L (21-32); Chloride 108.0 mmol/L (98-107); Creatinine Clr Calc Pharmacy 88.1 ml/min; Globulin 2.0 gm/dl (2.5-4.0); Glucose 131.0 mg/dl (70-99(Fasting)); Potassium 3.7 mmol/L (3.5-5.1); Sodium 137.0 mmol/L (136-145); Total Protein 4.9 gm/dl (6.0-8.3)
--- NOTE | 2025-04-23 09:14 | Gastroenterology Progress Note ---
Date of Service April 23, 2025 Assessment & Plan (1) Melena: Plan: Seems to be stable at this point. Continue current treatment. Will advance diet later today or tomorrow if remains stable Admission and Anticipated Discharge Date Admission Date: April 16, 2025 Subjective Patient says he is feeling well. Nurse reports black stool over night. H/H stable the last three times checked--since transfusion Physical Exam Physical Exam: Pleasant, in no distress Results & Data Vital Signs (Past 12 Hours) Vital Signs Temp Pulse Pulse Resp BP Pulse Ox O2 Del Method 04/23/25 08:25 36.8 C 89 16 116/68 93 Room Air 04/23/25 07:21 83 04/23/25 03:45 36.7 C 86 18 120/59 L 95 Room Air 04/22/25 22:46 36.8 C 85 18 128/76 95 Room Air 04/22/25 21:48 86
--- NOTE | 2025-04-23 16:58 | Hospitalist Progress Note ---
Date of Service April 23, 2025 Assessment & Plan (1) Syncope: (2) Altered mental status: Plan: Mr. Colindres is a 79 yo gentleman with medical history significant for valvular heart disease (moderate /mild AR), hypertension, hyperlipidemia, PVD, CVA, possible NPH, DM2 on oral medications, hypothyroidism, BPH, schizoaffective disorder, mood disorder admitted for evaluation of syncope. Patient found to have bacteremia. S/p NKECHI on 04/15 noting moderate stenosis ID consult: plan to continue daptomycin while admitted, plans to transition to linezolid upon d/c for 14 days s/p negative blood culture Patient restrained, has not be ambulatory 2/2 safety precautions. Orthostats positive. Still on CLD-->plan to advance. Await final bcx results possible dipo tomorrow #Acute anemia #Orthostatic hypotension JUANJO stockings multiple days on CLD and s/p IVF resusciation, however, hgb has yet to ever be ~8.9 patient now tachycardic despite IVF CTA on 04/16 without PE on dvt PPx 04/22 Hg trended down to 6.4 2 units pRBC ordered Status post EGD: grade 4 reflux esophagitis with no bleeding, rule out Cerda's, biopsied Nonbleeding gastric ulcer gastritis with erosions and erythema nonbleeding duodenal ulcer with no stigmata of bleeding 04/23 no signs of overt GI bleed so far Hg remains stable so far ~9 Continue Protonix drip, d/c tomorrow if patient remains stable Continue sucralfate Advance diet accordingly aspirin, Plavix, Lovenox on hold follow-up EGD biopsy results #Syncope #Bilateral ICA stenosis #Moderate aortic stenosis -- recurrent? last 2 episodes 2021 Per prior hospitalist, discussed with Staff at [facility]:"Patient was taken to the shower by officers, and patient suddenly passed out. No note of chest pain, shortness of breath, palpitations, dizziness. Patient was noted to be pale, blood pressure 128/78, heart rate 114, 95% on room air, respiration 40, blood glucose 236. no note of seizure-like activit. Patient regained co nsciousness after 2 minutes, no documentation whether the patient was confused after the episode. as per [facility], patient had syncopal episode x 2 back in 2021" Consulted cardiology service: moderate aortic stenosis unlikely to be the etiology of patient's syncope Consulted neurology service: Dr. 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--> held for GI bleed atorvastatin as per current regimen #GPC Bacteremia, micrococcus luteus, aerococcus viridans -- gram positive cocci clusters x 2 bottles Continue daptomycin while admitted -- s/p NKECHI 04/15 during initial admission, found to have moderate aortic stenosis Risk of endocarditis increased in presence of stenosis Discharge on linezolid for 14 days from negative blood cultures confirm if on antidepressants from [facility]--if so, then will dispo 14 days on daptomycin #Altered mental status #Possible metabolic encephalopathy secondary to bacteremia per officers at bedside, patient is some mostly awake alert and oriented at the correctional facility prior to admission -- mental status much better answering questions appropriately #Hypoxia resolved CT angiogram chest: No acute PE, no pneumonia or volume overload noted currently on room air, saturating more than 90% monitor closely #Troponin elevation secondary to illness and elevated BP trended down EKG no signs of acute ischemia no cardiac symptoms at present #Valvular heart disease (moderate /mild AR) -- s/p NKECHI 04/15 hyperlipidemia, on statin Rx PVD, carotid artery disease on imaging from last confinement, patient to follow- up with vascular surgery hx CVA, on antiplatelet Rx hypothyroidism, euthyroid per TSH schizoaffective disorder/mood disorder, not on maintenance medications Hypomagnesemia PT OT eval prior to discharge DVT prophylaxis. Lovenox subcu--> held for now Full code Admission and Anticipated Discharge Date Admission Date: April 16, 2025 Subjective seen resting in bed, sleeping but easily awakened officers at bedside states he feels fine overall no gi bleed noted overnight no abdominal pain, nausea/vomiting no chest pain, dyspnea, palpitations, dizziness no other symptoms Review of Systems Review of Systems: all noted and negative except for above Physical Exam Physical Exam: General- oriented x 2, not in distress, speaks in sentences with no effort or accessory muscle use Eyes- anicteric Neck- no JVD Lungs- clear breath sounds bilaterally, no crackles/wheezing Heart- normal rate, regular rhythm; (+) grade 3-4 holosytolic murmur Abdomen- normal bowel sounds, nondistended, soft, nontender Extremities- no pretibial edema, no calf tenderness Neuro- alert, oriented x 3; no gross focal neurologic deficits Skin- warm & dry Results & Data Results & Data Vital Signs (Past 12 Hours) Vital Signs Temp Pulse Pulse Resp BP Pulse Ox O2 Del Method 04/23/25 16:15 87 04/23/25 15:56 36.9 C 78 16 120/75 95 Room Air 04/23/25 14:00 Room Air 04/23/25 11:04 36.7 C 89 18 122/74 96 Room Air 04/23/25 08:25 36.8 C 89 16 116/68 93 Room Air 04/23/25 07:21 83 all noted and reviewed including below (2) Altered mental status Altered mental status type: disorientation Qualified Code(s): R41.0 - Disorientation, unspecified
--- NOTE | 2025-04-24 08:43 | Gastroenterology Progress Note ---
Date of Service April 24, 2025 Assessment & Plan (1) Hypotension: Plan: Seems stable from GI standpoint. Will advance diet Admission and Anticipated Discharge Date Admission Date: April 16, 2025 Subjective No vomiting. Had three "dark brown" stools. H/H are stable. wants solid food. Physical Exam Physical Exam: In no distress Constitutional: WD/WN, vitals as above Results & Data Vital Signs (Past 12 Hours) Vital Signs Temp Pulse Pulse Resp BP Pulse Ox O2 Del Method 04/24/25 08:21 36.5 C 82 20 125/70 93 Room Air 04/24/25 03:02 36.6 C 79 18 117/71 96 Room Air 04/23/25 22:50 36.4 C L 91 H 18 129/73 95 Room Air 04/23/25 22:00 83
[2025-04-24 09:27] LABS: Hematocrit (blood only) 26.3 % (42.0-52.0); Hemoglobin 8.8 g/dl (14.0-18.0); Mean Corpuscular Hemoglobin 29.1 pg (25.0-34.0); Mean Corpuscular Volume 87.1 fL (80.0-100.0); Platelet Count 234 K/uL (130-400); RDW Standard Deviation 46.0 fL (36.4-46.3); Red Blood Count 3.02 M/uL (4.70-6.10); White Blood Count 5.20 K/ul (4.8-10.8)
[2025-04-24 09:43] LABS: Anion Gap 4.0 (3-11); Blood Urea Nitrogen 4.0 mg/dl (6-23); Calcium 8.9 mg/dl (8.6-10.3); Carbon Dioxide 26.0 mmol/L (21-32); Chloride 107.0 mmol/L (98-107); Creatinine Clr Calc Pharmacy 91.7 ml/min; Glucose 168.0 mg/dl (70-99(Fasting)); Magnesium 1.7 mg/dl (1.7-2.4); Potassium 3.7 mmol/L (3.5-5.1); Sodium 137.0 mmol/L (136-145)
[2025-04-24] MEDS: ACETAMINOPHEN 325 MG TAB PO PRN (09:55)
--- NOTE | 2025-04-24 13:06 | Hospitalist Progress Note ---
Date of Service April 24, 2025 Assessment & Plan (1) Syncope: (2) Altered mental status: Plan: Mr. Colindres is a 79 yo gentleman with medical history significant for valvular heart disease (moderate /mild AR), hypertension, hyperlipidemia, PVD, CVA, possible NPH, DM2 on oral medications, hypothyroidism, BPH, schizoaffective disorder, mood disorder admitted for evaluation of syncope. Patient found to have bacteremia. S/p NKECHI on 04/15 noting moderate stenosis ID consult: plan to continue daptomycin while admitted, plans to transition to linezolid upon d/c for 14 days s/p negative blood culture Advancing diet today given stability Possible dispo tomorrow #Acute anemia #Orthostatic hypotension JUANJO stockings multiple days on CLD and s/p IVF resuscitation, however, hgb has yet to ever be ~8.9 patient now tachycardic despite IVF CTA on 04/16 without PE on dvt PPx Status post EGD: grade 4 reflux esophagitis with no bleeding, rule out Cerda's, biopsied Nonbleeding gastric ulcer gastritis with erosions and erythema nonbleeding duodenal ulcer with no stigmata of bleeding Hg remains stable so far ~9 transition to pantoprazole bid PO Continue sucralfate Advance diet accordingly plan to resume plavix in next 24-48 horus #Syncope #Bilateral ICA stenosis #Moderate aortic stenosis -- recurrent? last 2 episodes 2021 Per prior hospitalist, discussed with Staff at [facility]:"Patient was taken to the shower by officers, and patient suddenly passed out. No note of chest pain, shortness of breath, palpitations, dizziness. Patient was noted to be pale, blood pressure 128/78, heart rate 114, 95% on room air, respiration 40, blood glucose 236. no note of seizure-like activit. Patient regained consciousness after 2 minutes, no documentation whether the patient was confused after the episode. as per [facility], patient had syncopal episode x 2 back in 2021" Consulted cardiology service: moderate aortic stenosis unlikely to be the etiolo gy of patient's syncope Consulted neurology service: Dr. 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--> held for GI bleed atorvastatin as per current regimen #GPC Bacteremia, micrococcus luteus, aerococcus viridans -- gram positive cocci clusters x 2 bottles Continue daptomycin while admitted -- s/p NKECHI 04/15 during initial admission, found to have moderate aortic stenosis Risk of endocarditis increased in presence of stenosis Discharge on linezolid for 14 days from negative blood cultures #Altered mental status #Possible metabolic encephalopathy secondary to bacteremia per officers at bedside, patient is some mostly awake alert and oriented at the correctional facility prior to admission -- mental status much better answering questions appropriately #Hypoxia resolved CT angiogram chest: No acute PE, no pneumonia or volume overload noted currently on room air, saturating more than 90% monitor closely #Troponin elevation secondary to illness and elevated BP trended down EKG no signs of acute ischemia no cardiac symptoms at present #Valvular heart disease (moderate /mild AR) -- s/p NKECHI 04/15 hyperlipidemia, on statin Rx PVD, carotid artery disease on imaging from last confinement, patient to follow- up with vascular surgery hx CVA, on antiplatelet Rx hypothyroidism, euthyroid per TSH schizoaffective disorder/mood disorder, not on maintenance medications Hypomagnesemia PT OT eval prior to discharge DVT prophylaxis. Lovenox subcu--> held for now Full code Admission and Anticipated Discharge Date Admission Date: April 16, 2025 Subjective NAEO reports he wishes to get out of hospital soon awaiting PT/OT evals denies abdominal pain or other acute concerns at this time Physical Exam Constitutional: WD/WN, vitals as above Respiratory: normal respiratory effort, lungs clear to auscultation Cardiovascular: RRR, no murmur, no edema Gastrointestinal (Abdomen): normal bowel sounds, soft, nontender, no hepatosplenomegaly Results & Data Results & Data Vital Signs (Past 12 Hours) Vital Signs Temp Pulse Pulse Resp BP Pulse Ox O2 Del Method 04/24/25 12:00 36.5 C 82 20 128/73 95 Room Air 04/24/25 09:45 Room Air 04/24/25 08:21 36.5 C 82 20 125/70 93 Room Air 04/24/25 07:30 76 04/24/25 03:02 36.6 C 79 18 117/71 96 Room Air Laboratory Results Short CBC 04/24/25 Range/Units 09:06 WBC 5.20 (4.8-10.8) K/ul Hgb 8.8 L (14.0-18.0) g/dl Hct 26.3 L (42.0-52.0) % Plt Count 234 (130-400) K/uL [facility] 04/24/25 09:06 Sodium 137 Potassium 3.7 Chloride 107 Carbon Dioxide 26 BUN 4 L Creatinine 0.72 Glucose 168 H Calcium 8.9 Medications Administered Home Medications Medication Instructions Recorded Confirmed Last Taken aspirin 81 mg tablet,delayed 81 mg PO HS 08/15/20 04/16/25 04/14/25 release calcium 600 mg (as 2 tab PO HS 08/15/20 04/16/25 04/14/25 carbonate)-vitamin D3 10 mcg (400 unit) tablet glipizide 10 mg tablet 10 mg PO HS 08/15/20 04/16/25 04/14/25 levothyroxine 50 mcg tablet 50 mcg PO HS 08/15/20 04/16/25 04/14/25 metformin 1,000 mg tablet 1,000 mg PO HS 08/15/20 04/16/25 04/14/25 acetaminophen 500 mg tablet 1,000 mg PO BID 02/02/25 04/16/25 04/02/25 cholecalciferol (vitamin D3) 25 50 mcg PO DAILY 04/14/25 04/16/25 04/14/25 mcg (1,000 unit) capsule (Vitamin D3) atorvastatin 80 mg tablet 80 mg PO HS 04/16/25 04/16/25 Unknown clopidogrel 75 mg tablet 75 mg PO QAM 20 days #20 tabs 04/16/25 04/16/25 Unknown Active Medications Generic Name Dose Route Start Last Admin Trade Name Giles PRN Reason Stop Dose Admin Acetaminophen 1,000 mg 04/17/25 09:00 04/24/25 10:17 Acetaminophen 500 Mg Tab PO 05/17/25 08:59 Not Given BID JOSE Acetaminophen 325 mg 04/16/25 21:26 04/24/25 09:55 Acetaminophen 325 Mg Tab PO 05/16/25 21:25 325 mg QID PRN Administration pain/fever Aspirin 81 mg 04/17/25 21:00 04/20/25 21:47 Aspirin 81 Mg Ectab PO 05/17/25 20:59 81 mg HS JOSE Administration Clopidogrel Bisulfate 75 mg 04/17/25 09:00 04/22/25 09:10 Clopidogrel Bisulfate 75 Mg Tab PO 05/17/25 08:59 Not Given QAM JOSE Enoxaparin Sodium 40 mg 04/17/25 09:00 04/21/25 08:09 Enoxaparin Inj 40 Mg/0.4 Ml Syr SQ 05/17/25 08:59 40 mg QAM JOSE Administration Pantoprazole Sodium 40 mg in 10 mls @ 5 mls/min 04/21/25 10:45 04/21/25 11:33 Protonix IV 05/21/25 10:44 5 mls/min BID JOSE Administration Daptomycin 500 mg/ Syringe 10 mls @ 5 mls/min 04/21/25 20:00 04/23/25 21:00 IV 05/05/25 19:59 5 mls/min Q24H JOSE Administration Protocol Pantoprazole Sodium 40 mg/ 100 mls @ 20 mls/hr 04/21/25 16:00 04/24/25 08:24 Dextrose IV 05/21/25 15:59 8 mg/hr Q5H JOSE 20 mls/hr Administration 8 MG/HR Insulin Aspart 0 units 04/22/25 18:00 04/24/25 12:57 Insulin Aspart Per Unit Charge SC 05/22/25 17:59 2 units ACHS JOSE Administration Levothyroxine Sodium 50 mcg 04/17/25 21:00 04/23/25 21:00 Levothyroxine Sodium 50 Mcg Tablet PO 05/17/25 20:59 50 mcg HS JOSE Administration Sucralfate 1 gm 04/22/25 21:00 04/24/25 12:58 Sucralfate 1 Gm/10 Ml Udc PO 05/22/25 20:59 1 gm QID JOSE Administration Vitamin D 50 mcg 04/17/25 09:00 04/24/25 08:26 Cholecalciferol 25 Mcg (1000 Units) Tab PO 05/17/25 08:59 50 mcg DAILY JOSE Administration (2) Altered mental status Altered mental status type: disorientation Qualified Code(s): R41.0 - Disorientation, unspecified
[2025-04-24] MEDS: MAGNESIUM CHLORIDE W/CALCIUM 64MG DELAYED REL TAB PO SCH (15:57)
[2025-04-25 06:27] LABS: Hematocrit (blood only) 27.0 % (42.0-52.0); Hemoglobin 9.5 g/dl (14.0-18.0); Mean Corpuscular Hemoglobin 30.5 pg (25.0-34.0); Mean Corpuscular Volume 86.8 fL (80.0-100.0); Platelet Count 263 K/uL (130-400); RDW Standard Deviation 45.5 fL (36.4-46.3); Red Blood Count 3.11 M/uL (4.70-6.10); White Blood Count 4.35 K/ul (4.8-10.8)
[2025-04-25 06:52] LABS: Anion Gap 4.0 (3-11); Blood Urea Nitrogen 5.0 mg/dl (6-23); Calcium 9.1 mg/dl (8.6-10.3); Carbon Dioxide 28.0 mmol/L (21-32); Chloride 106.0 mmol/L (98-107); Creatinine Clr Calc Pharmacy 84.2 ml/min; Glucose 127.0 mg/dl (70-99(Fasting)); Magnesium 1.8 mg/dl (1.7-2.4); Potassium 3.8 mmol/L (3.5-5.1); Sodium 138.0 mmol/L (136-145)
[2025-04-25 08:05] VITALS: RESP 20
[2025-04-25] MEDS: LACTULOSE SYRUP 20 GM/30 ML UDC PO ONE (10:38)
[2025-04-25 11:43] VITALS: BP 110/66; PULSE 84; TEMP 98.2; O2SAT 93
--- NOTE | 2025-04-25 13:42 | Discharge Summary ---
Discharge Summary Date of Service April 25, 2025 Principal Dx & Hospital Course #1 = Principal Diagnosis (1) Syncope: (2) Altered mental status: Mr. Colindres is a 79 yo gentleman with medical history significant for valvular heart disease (moderate /mild AR), hypertension, hyperlipidemia, PVD, CVA, possible NPH, DM2 on oral medications, hypothyroidism, BPH, schizoaffective disorder, mood disorder admitted for evaluation of syncope. Patient found to have bacteremia. S/p NKECHI on 04/15 noting moderate stenosis ID consult: plan to continue daptomycin while admitted, plans to transition to linezolid upon d/c for 14 days s/p negative blood culture Patient's course complicated by orthostasis and found to have nonbleeding ulcer. Patient transitioned to po PPI and sucralfate. Hemoglobin stable of day of discharge, and patient not orthostatic. Patient eating well and denies any acute concerns. #Acute anemia #Orthostatic hypotension JUANJO stockings multiple days on CLD and s/p IVF resuscitation, however, hgb has yet to ever be ~8.9 patient now tachycardic despite IVF CTA on 04/16 without PE on dvt PPx Status post EGD: grade 4 reflux esophagitis with no bleeding, rule out Cerda's, biopsied Nonbleeding gastric ulcer gastritis with erosions and erythema nonbleeding duodenal ulcer with no stigmata of bleeding Hg remains stable so far ~9 transition to pantoprazole bid PO Continue sucralfate Advance diet accordingly resumed plavix #Syncope #Bilateral ICA stenosis #Moderate aortic stenosis -- recurrent? last 2 episodes 2021 Per prior hospitalist, discussed with Staff at [facility]:"Patient was taken to the shower by officers, and patient suddenly passed out. No note of chest pain, shortness of breath, palpitations, dizziness. Patient was noted to be pale, blood pressure 128/78, heart rate 114, 95% on room air, respiration 40, blood glucose 236. no note of seizure-like activit. Patient regained consciousness after 2 minutes, no documentation whether the patient was confused after the episode. as per [facility], patient had syncopal episode x 2 back in 2021" Consulted cardiology service: moderate aortic stenosis unlikely to be the etiology of patient's syncope Consulted neurology service: Dr. Benedict, feels syncopal episode is related to vasovagal as event occurred while patient was taking a hot shower, no further neurologic testing at this point; will need neuroendovascular follow up resumed plavix, held asa--resume if hgb remains stable in next week atorvastatin as per current regimen #GPC Bacteremia, micrococcus luteus, aerococcus viridans -- gram positive cocci clusters x 2 bottles Continue daptomycin while admitted -- s/p NKECHI 04/15 during initial admission, found to have moderate aortic stenosis Risk of endocarditis increased in presence of stenosis Discharge on linezolid for 14 days from negative blood cultures #Altered mental status #Possible metabolic encephalopathy secondary to bacteremia per officers at bedside, patient is some mostly awake alert and oriented at the correctional facility prior to admission -- mental status much better answering questions appropriately #Hypoxia resolved CT angiogram chest: No acute PE, no pneumonia or volume overload noted currently on room air, saturating more than 90% monitor closely #Troponin elevation secondary to illness and elevated BP trended down EKG no signs of acute ischemia no cardiac symptoms at present Notes For Next Care Provider repeat cbc in 1 week, consider resuming asa if hgb between 8-9 Medication Changes From Visit Hold ASA Start pantoprazole 40mg bid start sucralfate 1gm achs continue linezolid 600mg bid x 8 more days start magnesium daily Admission HPI Per Admitting Provider History obtained from patient and records. Medical history significant for valvular heart disease (moderate /mild AR), hypertension, hyperlipidemia, PVD, CVA, possible NPH, DM2 on oral medications, hypothyroidism, BPH, schizoaffective disorder, mood disorder. Recent confinement April 14 through 2024 for suspected CVA presenting as numbness of the extremities. TIA versus NPH as per Neurology evaluation. Brain MRI unremarkable. CT angio neck showed left ICA stenosis 80%, 50% stenosis right ICA. Patient discharged back to correctional facility today on dual antiplatelet Rx. Outpatient neuroendovascular consultation recommended after 2 weeks. Patient found unresponsive at the shower today. Unwitnessed event. Patient later woke up, not aware of events. Patient denies headache, chest pain, SOB, abdominal pain. Hypoglycemia as per records. Patient given 1 amp D50 water by EMS. BGs later noted to be 239. Patient brought to ER for evaluation. 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 Admission Exam Per Admitting Provider GENERAL: Slightly uncomfortable, obese, episodic tachypnea SKIN: Normal color, warm HEENT: Partial alopecia, pink palpebral conjunctivae, no ptosis, dry buccal mucosa NECK : Supple, no tenderness CHEST : Decreased breath sounds, no tenderness HEART : RRR, systolic murmur ABDOMEN: Some distention, nontender EXTREMITIES : No LE swelling/tenderness, palpable pulses, no other conspicuous deformities noted NEUROLOGIC : Coherent, no facial asymmetry, gait and stance not assessed Discharge Exam Constitutional WD/WN, vitals as above Respiratory normal respiratory effort, lungs clear to auscultation Cardiovascular rrr, MELISSA Gastrointestinal (Abdomen) normal bowel sounds, soft, nontender, no hepatosplenomegaly Updated Medication List Medication Instructions Recorded Confirmed Type aspirin 81 mg tablet,delayed 81 mg PO HS 08/15/20 04/16/25 History release calcium 600 mg (as 2 tab PO HS 08/15/20 04/16/25 History carbonate)-vitamin D3 10 mcg (400 unit) tablet glipizide 10 mg tablet 10 mg PO HS 08/15/20 04/16/25 History levothyroxine 50 mcg tablet 50 mcg PO HS 08/15/20 04/16/25 History metformin 1,000 mg tablet 1,000 mg PO HS 08/15/20 04/16/25 History acetaminophen 500 mg tablet 1,000 mg PO BID 02/02/25 04/16/25 History cholecalciferol (vitamin D3) 25 50 mcg PO DAILY 04/14/25 04/16/25 History mcg (1,000 unit) capsule (Vitamin D3) atorvastatin 80 mg tablet 80 mg PO HS 04/16/25 04/16/25 History clopidogrel 75 mg tablet 75 mg PO QAM 20 days #20 tabs 04/16/25 04/16/25 Rx linezolid 600 mg tablet 600 mg PO BID 8 days #16 tabs 04/25/25 Rx magnesium chloride 64 mg 64 mg PO QAM 30 days #30 tabs 04/25/25 Rx (magnesium chloride) tablet,delayed release (Mag 64) pantoprazole 40 mg tablet,delayed 40 mg PO BID 30 days #60 tabs 04/25/25 Rx release sucralfate 100 mg/mL oral 1 g (10 mL) PO QID 30 days #1,200 04/25/25 Rx suspension mL Hospital Stay Data Consultations 04/16/25 20:54 ED Decision to Admit Stat 04/17/25 08:16 Consult Cardiology Routine 04/18/25 10:34 Consult Infectious Diseases Routine Consult Neurology Routine 04/21/25 15:36 Consult Gastroenterology Routine Procedures Performed Operation Date: 04/22/25 17:20 Actual Procedures p EGD Biopsy Cytology(Not Applicable) - Prince Payne MD Diagnostic Imagining Performed 04/16/25 18:01 CT head/brain wo con Stat 04/16/25 21:11 CT angio chest PE protocol Stat 04/21/25 10:27 CTA abd pelvis wo/w con [CT angio abd pelvis wo/w con] Routine Pending Results Patient Have Any Pending Studies at Discharge: No Discharge Instructions Given to Patient (Per Discharging Provider) You were admitted for weakness and found to have bacteremia (bacteria in your blood) You will complete 8 more days of linezolid two times a day (your next dose is this evening). End of treatment will be 05/03/2025 You were noted to have a dropping blood count and found to have a bleeding gastric ulcer. You will continue on pantoprazole 40mg two times a day You will continue on sucralfate 1gm with meals and at bedtime. Please hold your aspirin for 1 week and resume as able if blood counts on next labs are stable Total Time Total Time Spent Total Time Spent (In Minutes): 45
== END 2025-04-25 14:26 | DRG 312 ==
LOC: ED 17:55 → EDINP 20:23 → SUATTDRO 20:23 → 2W 04-17 14:12

== ENCOUNTER 2025-05-01 23:37 | Inpatient (IN) ==
[2025-05-01] MEDS ORDERED: PANTOPRAZOLE BOLUS/DRIP IV STA (23:50)
--- NOTE | 2025-05-01 23:50 | Emergency Department Note ---
Impression & Plan GI (gastrointestinal bleed) Admission ED Provider Note HPI: History obtained from patient. The patient is a 79-year-old gentleman with history of severe aortic stenosis, diabetes, schizoaffective disorder, who presents from [facility] over concern for GI bleeding versus diarrhea. Patient had a recent inpatient admission where he was noted to be bacteremic, he was discharged from the hospital on linezolid. Over the past several days the patient states he has had loose bowel movements, per [facility] staff at the bedside he was sent in over concern for blood per rectum. On arrival here to the ED the patient is alert, he is mildly tachycardic but otherwise hemodynamically stable. He presents with blood pressure of 123/70, patient saturating well on room air on arrival. Patient denies any abdominal pain, he denies any vomiting. Patient denies any chest pain or shortness of breath. ROS: - Per HPI Differential Diagnosis: Diarrhea, viral gastroenteritis, lower GI bleed, upper GI bleed, acute pancreatitis, duodenitis, acute gastritis, amongst other potential pathologies. *Outpatient medications and allergy history reviewed. PE: General: Alert HEENT: Normocephalic, trachea midline Eyes: Extraocular eye movement is intact, no scleral erythema Pulmonary: Clear to auscultation bilaterally, no wheezing Cardio: Regular rate and rhythm GI: Abdomen is soft to palpation, nontender, nondistended, rectal examination performed with RN at the bedside does not show any evidence of any external hemorrhoids or gross bleeding : No suprapubic tenderness MSK: No evidence of trauma or malformation of the extremities, no edema Skin: No evidence of rash Neuro: Alert, no focal deficits Psychiatric: Cooperative INDEPENDENT INTERPRETATIONS: vehicle monitor technician: (As interpreted by myself): - An order was placed for continuous cardiac monitoring - Patient was noted to be in sinus rhythm with a rate of 98 EKG: (As interpreted by myself): Rate: 103 Rhythm: Sinus tachycardia Intervals: Within normal limits ST changes: No ST elevation Time: 2351 Interventions provided in ED: - IV Protonix bolus and drip, IV fluid bolus, dextrose Medical Decision Making: IV was established and lab work obtained. Patient was placed on media monitor. Patient was given IV fluid bolus and started on IV Protonix bolus and drip given reported blood per rectum at his correctional facility. Lab work shows hemoglobin of 10.6 which is better than the patient's previous levels earlier this month. Platelet count is normal. He has no leukocytosis. CMP shows no critical findings. Lactic acid is elevated at 3.4. Glucose was noted to be low at 44, patient has not had any altered mental status here despite his hypoglycemia. He was given an amp of D50 via IV given this low glucose. Patient's blood pressure did transiently downtrend to 87 systolic at 1 point but quickly came back up into the 130 systolic with IV fluids. Despite his stable hemoglobin I think he would benefit from admission for observation. He does have an occult positive stool on my exam. He does not have any abdominal pain on my exam, I do not feel that CT imaging of the abdomen is indicated at this time. I discussed patient's presentation with the on-call hospitalist, Dr. Pathak, and the patient was placed for admission in stable condition. Consultants/Discussions held with other healthcare providers: - Hospitalist, Dr. Pathak Disposition discussion held by myself with: - Patient and [facility] staff at the bedside Diagnosis: 1. Occult positive stool 2. Anemia, chronic 3. Lactic acidosis, acute 4. Hypoglycemia, acute Disposition: Admission Louie Don DO Emergency Medicine Past Med/Surg History Problem List (Updated 05/02/25 @ 01:26 by Louie Don DO) GI (gastrointestinal bleed) (Acute) Gram-positive bacteremia Syncope Acute hypoxic respiratory failure (Acute) Hypoglycemia (Acute) Altered mental status (Acute) Stroke-like symptoms Carotid artery disease without cerebral infarction Stroke Hypomagnesemia (Acute) Brain TIA (Acute) Closed left arm fracture Tachycardia Severe aortic stenosis Hypotension (Acute) Acute dyspnea (Acute) Medical History Anemia Melena Hyperlipidemia Hypothyroidism NPH (normal pressure hydrocephalus) Diabetes mellitus Diabetes Schizoaffective disorder Social History Smoking Status: Never smoker Second Hand Exposure: No; Do You Dip or Chew Tobacco: No; Hx Alcohol Use: No Hx Substance Use: No Preferred Language: Burmese Communication Ability: Effective 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: No Beliefs That Will Affect Care: None Current Living Situation: Other Current Living Situation Comment: [facility] Feels Safe at Home: Yes Assistive Devices: None Allergies Allergies Allergy/AdvReac Type Severity Reaction Status Date / Time No Known Allergies Allergy Verified 04/14/25 17:53 Home Meds Home Medications Medication Instructions Recorded Confirmed aspirin 81 mg tablet,delayed 81 mg PO HS 08/15/20 05/01/25 release calcium 600 mg (as 2 tab PO HS 08/15/20 05/02/25 carbonate)-vitamin D3 10 mcg (400 unit) tablet glipizide 10 mg tablet 10 mg PO HS 08/15/20 05/02/25 levothyroxine 50 mcg tablet 50 mcg PO HS 08/15/20 05/02/25 metformin 1,000 mg tablet 1,000 mg PO HS 08/15/20 05/02/25 cholecalciferol (vitamin D3) 25 50 mcg PO DAILY 04/14/25 05/02/25 mcg (1,000 unit) capsule (Vitamin D3) atorvastatin 80 mg tablet 80 mg PO HS 04/16/25 05/02/25 omeprazole 20 mg capsule,delayed 20 mg PO BID 05/01/25 05/02/25 release Previous Rx's Medication Instructions Recorded clopidogrel 75 mg tablet 75 mg PO QAM 20 days #20 tabs 04/16/25 linezolid 600 mg tablet 600 mg PO BID 8 days #16 tabs 04/25/25 sucralfate 100 mg/mL oral 1 g (10 mL) PO QID 30 days #1,200 04/25/25 suspension mL Results & Data (ED) Vital Signs Vital Signs - 24 hr 05/01/25 23:41 05/01/25 23:54 05/01/25 23:57 Temperature 36.8 C Temperature Source Temporal Artery Scan Pulse Rate 108 H 99 H Pulse Rate [Apical] 93 H Pulse Rhythm Regular Pulse Strength Normal Respiratory Rate 18 20 Respiratory Effort / Characteristics Non-Labored Spontaneous Respiratory Depth Normal Respiratory Pattern Regular Blood Pressure 123/70 Blood Pressure [Right Arm] 87/69 L Blood Pressure Mean 87 Blood Pressure Mean [Right Arm] 75 Blood Pressure Position Sitting Blood Pressure Position [Right Arm] Lying Pulse Oximetry 97 96 Oxygen Delivery Method Room Air Room Air Sepsis Recent Fever Within 48 Hours No Sepsis New/Unexplained Change in Mental Status No Sepsis Action Taken by Nursing No Action Required 05/02/25 00:00 05/02/25 00:03 Temperature Temperature Source Pulse Rate 91 H Pulse Rate [Apical] Pulse Rhythm Pulse Strength Respiratory Rate 20 Respiratory Effort / Characteristics Respiratory Depth Respiratory Pattern Blood Pressure Blood Pressure [Right Arm] 137/85 Blood Pressure Mean Blood Pressure Mean [Right Arm] 102 Blood Pressure Position Blood Pressure Position [Right Arm] Pulse Oximetry 96 Oxygen Delivery Method Room Air Sepsis Recent Fever Within 48 Hours Sepsis New/Unexplained Change in Mental Status Sepsis Action Taken by Nursing Laboratory Data 05/01/25 23:57 05/01/25 23:57 Lab Results 05/01/25 05/01/25 05/02/25 Range/Units 23:53 23:57 00:35 WBC 8.97 (4.8-10.8) K/ul RBC 3.66 L (4.70-6.10) M/uL Hgb 10.6 L (14.0-18.0) g/dl Hct 32.7 L (42.0-52.0) % MCV 89.3 (80.0-100.0) fL MCH 29.0 (25.0-34.0) pg MCHC 32.4 (32.0-36.0) g/dL RDW Std Deviation 53.1 H (36.4-46.3) fL RDW Coeff of Adore 16.4 H (11.5-14.5) % Plt Count 316 (130-400) K/uL MPV 9.4 (9.4-12.4) fL Immature Gran % (Auto) 0.2 % Neut % (Auto) 82.1 % Lymph % (Auto) 10.6 % Jerauld % (Auto) 6.5 % Eos % (Auto) 0.4 % Baso % (Auto) 0.2 % Neut # (Auto) 7.36 H (1.40-6.50) K/uL Lymph # (Auto) 0.95 L (1.20-3.40) K/uL Jerauld # (Auto) 0.58 (0.11-0.59) K/uL Eos # (Auto) 0.04 (0.00-0.50) K/uL Baso # (Auto) 0.02 (0.00-0.20) K/uL Immature Gran # (Auto) 0.02 (0.01-0.20) K/uL PT 10.9 (9.0-12.0) Seconds INR 1.0 (0.9-1.1) Sodium 135 L (136-145) mmol/L Potassium 3.7 (3.5-5.1) mmol/L Chloride 105 (98-107) mmol/L Carbon Dioxide 22 (21-32) mmol/L Anion Gap 8 (3-11) BUN 8 (6-23) mg/dl Creatinine 0.97 (0.6-1.4) mg/dl Est Cr Clr Drug Dosing 65.4 ml/min eGFR 79.41 BUN/Creatinine Ratio 8.2 L (10-20) Glucose 44 L* (70-99(Fasting)) mg/dl POC Glucose (70-99) mg/dl Lactate 3.4 H* (0.4-2.0) mmol/L Calcium 9.7 (8.6-10.3) mg/dl Total Bilirubin 0.5 (0.2-1.0) mg/dl AST 19 (13-39) U/L ALT 16 (7-52) U/L Alkaline Phosphatase 97 (34-104) U/L Total Protein 6.4 (6.0-8.3) gm/dl Albumin 3.6 (3.4-5.0) gm/dl Globulin 2.8 (2.5-4.0) gm/dl Albumin/Globulin Ratio 1.3 (0.9-2) Lipase 76 (11-82) U/L Blood Type A Positive Antibody Screen NEGATIVE 05/02/25 Range/Units 01:05 WBC (4.8-10.8) K/ul RBC (4.70-6.10) M/uL Hgb (14.0-18.0) g/dl Hct (42.0-52.0) % MCV (80.0-100.0) fL MCH (25.0-34.0) pg MCHC (32.0-36.0) g/dL RDW Std Deviation (36.4-46.3) fL RDW Coeff of Adore (11.5-14.5) % Plt Count (130-400) K/uL MPV (9.4-12.4) fL Immature Gran % (Auto) % Neut % (Auto) % Lymph % (Auto) % Jerauld % (Auto) % Eos % (Auto) % Baso % (Auto) % Neut # (Auto) (1.40-6.50) K/uL Lymph # (Auto) (1.20-3.40) K/uL Jerauld # (Auto) (0.11-0.59) K/uL Eos # (Auto) (0.00-0.50) K/uL Baso # (Auto) (0.00-0.20) K/uL Immature Gran # (Auto) (0.01-0.20) K/uL PT (9.0-12.0) Seconds INR (0.9-1.1) Sodium (136-145) mmol/L Potassium (3.5-5.1) mmol/L Chloride (98-107) mmol/L Carbon Dioxide (21-32) mmol/L Anion Gap (3-11) BUN (6-23) mg/dl Creatinine (0.6-1.4) mg/dl Est Cr Clr Drug Dosing ml/min eGFR BUN/Creatinine Ratio (10-20) Glucose (70-99(Fasting)) mg/dl POC Glucose 36 L* (70-99) mg/dl Lactate (0.4-2.0) mmol/L Calcium (8.6-10.3) mg/dl Total Bilirubin (0.2-1.0) mg/dl AST (13-39) U/L ALT (7-52) U/L Alkaline Phosphatase (34-104) U/L Total Protein (6.0-8.3) gm/dl Albumin (3.4-5.0) gm/dl Globulin (2.5-4.0) gm/dl Albumin/Globulin Ratio (0.9-2) Lipase (11-82) U/L Blood Type Antibody Screen Administered Medications Pantoprazole Sodium 40 mg/ (Dextrose) 100 mls @ 20 mls/hr IV Q5H JOSE Stop: 06/01/25 00:14 Last Admin: 05/02/25 01:01 Dose: 8 mg/hr, 20 mls/hr Documented By: Discontinued Medications Dextrose (Dextrose 50% 50 Ml Syringe) 50 ml IV NOW ONE Stop: 05/02/25 01:02 Last Admin: 05/02/25 01:06 Dose: 50 ml Documented By: Sodium Chloride (Nss) 1,000 mls @ 999 mls/hr IV .Q1H1M STA Stop: 05/02/25 00:44 Last Admin: 05/02/25 00:31 Dose: 999 mls/hr Documented By: Pantoprazole Sodium 80 mg/ (Dextrose) 120 mls @ 480 mls/hr IV NOW ONE Stop: 05/02/25 00:04 Last Infusion: 05/02/25 01:01 Dose: Infused Documented By: Admin: 05/02/25 00:28 Dose: 480 mls/hr Documented By: Discharge Plan Visit Data Chief Complaint: Diarrhea Stated Complaint: DIARRHEA ED Provider: Louie Don Discharge Problem: GI (gastrointestinal bleed) [facility]position[facility] Condition: Fair Forms Stand Alone Forms: [facility] Prescriptions Prescriptions: No Action aspirin 81 mg Tablet,Delayed Release (Dr/Ec) 81 mg PO HS Hold Instructions: Resume if hemoglobin stable Rx Instructions: on hold calcium carbonate-vitamin D3 600 mg(1,500mg) -400 unit Tablet 2 tab PO HS glipizide 10 mg Tablet 10 mg PO HS levothyroxine 50 mcg Tablet 50 mcg PO HS metformin 1,000 mg Tablet 1,000 mg PO HS Hold Instructions: Resume on 04/17/25. atorvastatin 80 mg Tablet 80 mg PO HS sucralfate 100 mg/mL Suspension 1 g PO QID 30 Days Qty: 1200 0RF linezolid 600 mg tablet 600 mg PO BID 8 Days Qty: 16 0RF cholecalciferol (vitamin D3) [Vitamin D3] 25 mcg (1,000 unit) Capsule 50 mcg PO DAILY clopidogrel 75 mg Tablet 75 mg PO QAM 20 Days Qty: 20 0RF omeprazole 20 mg Capsule,Delayed Release(Dr/Ec) 20 mg PO BID Referrals Referrals: Dora ELLER [Primary Care Provider] - Discharge Problem: GI (gastrointestinal bleed) Qualifiers: GI bleed type/associated pathology: unspecified gastrointestinal hemorrhage type Qualified Code(s): K92.2 - Gastrointestinal hemorrhage, unspecified
[2025-05-02 00:11] LABS: Hematocrit (blood only) 32.7 % (42.0-52.0); Hemoglobin 10.6 g/dl (14.0-18.0); Immature Granulocytes # (auto) 0.02 K/uL (0.01-0.20); Immature Granulocytes % (auto) 0.2 %; Mean Corpuscular Hemoglobin 29.0 pg (25.0-34.0); Mean Corpuscular Volume 89.3 fL (80.0-100.0); Platelet Count 316 K/uL (130-400); RDW Standard Deviation 53.1 fL (36.4-46.3); Red Blood Count 3.66 M/uL (4.70-6.10); White Blood Count 8.97 K/ul (4.8-10.8)
[2025-05-02] MEDS: SODIUM CHLORIDE 0.9% 1,000 ML IV STA (00:31)
[2025-05-02 00:44] LABS: INR 1.0 (0.9-1.1); Prothrombin Time 10.9 Seconds (9.0-12.0)
[2025-05-02 00:59] LABS: Alanine Aminotransferase 16.0 U/L (7-52); Albumin Globulin Ratio 1.3 (0.9-2); Alkaline Phosphatase 97.0 U/L (34-104); Anion Gap 8.0 (3-11); Bilirubin,Total 0.5 mg/dl (0.2-1.0); Blood Urea Nitrogen 8.0 mg/dl (6-23); Calcium 9.7 mg/dl (8.6-10.3); Carbon Dioxide 22.0 mmol/L (21-32); Chloride 105.0 mmol/L (98-107); Creatinine Clr Calc Pharmacy 65.4 ml/min; Globulin 2.8 gm/dl (2.5-4.0); Glucose 44.0 mg/dl (70-99(Fasting)); Lipase 76.0 U/L (11-82); Potassium 3.7 mmol/L (3.5-5.1); Sodium 135.0 mmol/L (136-145); Total Protein 6.4 gm/dl (6.0-8.3)
[2025-05-02] MEDS: PANTOprazole 40 MG in DEXTROSE 5% MINI-B 100 ML IV SCH (01:01)
[2025-05-02] MEDS: DEXTROSE 50% 50 ML SYRINGE IV ONE (01:06)
--- NOTE | 2025-05-02 01:27 | History & Physical Report ---
Date of Service May 02, 2025 Assessment & Plan (1) GI (gastrointestinal bleed): Plan: Assessment and plan below following discussion of case with ED provider and reviewing patient history/pertinent normal/abnormal diagnostic test results. Diarrhea presenting as painless LGIB Rule out infectious causes given confinement and incarceration valvular heart disease (moderate /mild AR) hypertension, BP on the lower side, patient not on maintenance medications hyperlipidemia, on statin Rx hx PVD, CVA possible NPH GERD/PUD, currently on PPI and sucralfate DM2 on oral medications, patient with recurrent hypoglycemic episodes, well- controlled as of recent hemoglobin A1c of 5.6 this month hypothyroidism, euthyroid as of recent TSH chronic anemia, hemoglobin better than baseline despite GI bleed gram-positive bacteremia currently on Zyvox course schizoaffective disorder/mood disorder currently not on maintenance medications OBS Admit to med/tele Stool cultures, C. difficile Monitor lactic acid response to IVF Appropriate to hold antiplatelet Rx for now Follow H&H, transfuse PRBC to maintain hemoglobin of at least 8 GI consult if with progressive LGIB DC glipizide on discharge given recurrent hypoglycemia ISS BG goal 110-140, carb count coverage DVT prophylaxis. SCDs Re: GI bleed Full code Text document was generated using Torrent[employer] voice recognition software. It may contain grammatical or spelling errors. Kindly contact undersigned for clarification of any documentation item in question. History of Present Illness Chief Complaint: Bloody diarrhea Primary Care Provider: DAPHNIE John History obtained from patient and records. Medical history significant for valvular heart disease (moderate /mild AR), hypertension, hyperlipidemia, PVD, CVA, possible NPH, GERD/PUD, DM2 on oral medications, hypothyroidism, chronic anemia (baseline hemoglobin 8-9), BPH, gram-positive bacteremia currently on Zyvox course, schizoaffective disorder, mood disorder. Two admissions this month at [facility]. Recent confinement April 16 to 2024 for syncope attributed to hypoglycemia and orthostatic hypotension. EGD showed nonbleeding gastric ulcer/gastritis with erosions and erythema/nonbleeding duodenal ulcer without stigmata of bleeding. Patient discharged on Protonix and sucralfate Rx. Plavix resumed on discharge. Patient found to have gram-positive bacteremia (micrococcus luteus and Aerococcus viridans) during confinement. Patient discharged on 2-week Zyvox course as per ID recommendations. 3 days ago, patient noted bloody diarrhea symptoms without abdominal pain. No nausea or emesis. No fever, no chills. Patient denies chest pain, SOB, headache symptoms. Patient brought to the ER for evaluation. Lowest SBP of 80s, BSG 30s documented at the ER. Medical History as above Family History : DM Personal/Social history : Non-smoker, no EtOH intake, detention inmate Allergies Allergy/AdvReac Type Severity Reaction Status Date / Time No Known Allergies Allergy Verified 04/14/25 17:53 Home Medications Medication Instructions Recorded Confirmed Type aspirin 81 mg tablet,delayed 81 mg PO HS 08/15/20 05/01/25 History release calcium 600 mg (as 2 tab PO HS 08/15/20 05/02/25 History carbonate)-vitamin D3 10 mcg (400 unit) tablet glipizide 10 mg tablet 10 mg PO HS 08/15/20 05/02/25 History levothyroxine 50 mcg tablet 50 mcg PO HS 08/15/20 05/02/25 History metformin 1,000 mg tablet 1,000 mg PO HS 08/15/20 05/02/25 History cholecalciferol (vitamin D3) 25 50 mcg PO DAILY 04/14/25 05/02/25 History mcg (1,000 unit) capsule (Vitamin D3) atorvastatin 80 mg tablet 80 mg PO HS 04/16/25 05/02/25 History clopidogrel 75 mg tablet 75 mg PO QAM 20 days #20 tabs 04/16/25 05/02/25 Rx linezolid 600 mg tablet 600 mg PO BID 8 days #16 tabs 04/25/25 05/02/25 Rx sucralfate 100 mg/mL oral 1 g (10 mL) PO QID 30 days #1,200 04/25/25 05/02/25 Rx suspension mL omeprazole 20 mg capsule,delayed 20 mg PO BID 05/01/25 05/02/25 History release Past Med/Surg History Problem List (Updated 05/02/25 @ 01:26 by Louie Don DO) GI (gastrointestinal bleed) (Acute) Gram-positive bacteremia Syncope Acute hypoxic respiratory failure (Acute) Hypoglycemia (Acute) Altered mental status (Acute) Stroke-like symptoms Carotid artery disease without cerebral infarction Stroke Hypomagnesemia (Acute) Brain TIA (Acute) Closed left arm fracture Tachycardia Severe aortic stenosis Hypotension (Acute) Acute dyspnea (Acute) Medical History Anemia Melena Hyperlipidemia Hypothyroidism NPH (normal pressure hydrocephalus) Diabetes mellitus Diabetes Schizoaffective disorder Social History Smoking Status: Never smoker Second Hand Exposure: No; Do You Dip or Chew Tobacco: No; Hx Alcohol Use: No Hx Substance Use: No Preferred Language: Turkmen Communication Ability: Effective Reimbursement Liaison Required: No Beliefs That Will Affect Care: None Current Living Situation: Other Current Living Situation Comment: inmate Feels Safe at Home: Yes Safety Concerns: Feels Safe At This Time Assistive Devices: None Review of Systems Review of Systems: As per HPI, all other systems reviewed and negative Physical Exam Physical Exam: GENERAL: Slightly uncomfortable SKIN: Pallor , warm HEENT: Partial alopecia, pale palpebral conjunctivae, no ptosis, dry buccal mucosa, involuntary tongue movements (chronic as per correctional officers) NECK : Supple, no tenderness CHEST : Decreased breath sounds, no tenderness HEART : RRR, systolic murmur ABDOMEN: Some distention, nontender EXTREMITIES : No LE swelling/tenderness, palpable pulses, no other conspicuous deformities noted NEUROLOGIC : Coherent, no facial asymmetry, involuntary tongue movements, gait and stance not assessed Results & Data Results & Data Vital Signs (Past 12 Hours) Vital Signs Temp Pulse Pulse Resp BP BP Pulse Ox 05/02/25 00:03 137/85 05/02/25 00:00 91 H 20 96 05/01/25 23:57 93 H 20 87/69 L 96 05/01/25 23:54 99 H 05/01/25 23:41 36.8 C 108 H 18 123/70 97 O2 Del Method 05/02/25 00:03 05/02/25 00:00 Room Air 05/01/25 23:57 Room Air 05/01/25 23:54 05/01/25 23:41 Room Air Laboratory Results Laboratory Results WBC 8.97 K/ul (4.8-10.8) 05/01/25 23:57 RBC 3.66 M/uL (4.70-6.10) L 05/01/25 23:57 Hgb 10.6 g/dl (14.0-18.0) L 05/01/25 23:57 Hct 32.7 % (42.0-52.0) L 05/01/25 23:57 MCV 89.3 fL (80.0-100.0) 05/01/25 23:57 MCH 29.0 pg (25.0-34.0) 05/01/25 23:57 MCHC 32.4 g/dL (32.0-36.0) 05/01/25 23:57 RDW Std Deviation 53.1 fL (36.4-46.3) H 05/01/25 23:57 RDW Coeff of Adore 16.4 % (11.5-14.5) H 05/01/25 23:57 Plt Count 316 K/uL (130-400) 05/01/25 23:57 MPV 9.4 fL (9.4-12.4) 05/01/25 23:57 Immature Gran % (Auto) 0.2 % 05/01/25 23:57 Neut % (Auto) 82.1 % 05/01/25 23:57 Lymph % (Auto) 10.6 % 05/01/25 23:57 [place] % (Auto) 6.5 % 05/01/25 23:57 Eos % (Auto) 0.4 % 05/01/25 23:57 Baso % (Auto) 0.2 % 05/01/25 23:57 Neut # (Auto) 7.36 K/uL (1.40-6.50) H 05/01/25 23:57 Lymph # (Auto) 0.95 K/uL (1.20-3.40) L 05/01/25 23:57 [place] # (Auto) 0.58 K/uL (0.11-0.59) 05/01/25 23:57 Eos # (Auto) 0.04 K/uL (0.00-0.50) 05/01/25 23:57 Baso # (Auto) 0.02 K/uL (0.00-0.20) 05/01/25 23:57 Immature Gran # (Auto) 0.02 K/uL (0.01-0.20) 05/01/25 23:57 PT 10.9 Seconds (9.0-12.0) 05/01/25 23:57 INR 1.0 (0.9-1.1) 05/01/25 23:57 Sodium 135 mmol/L (136-145) L 05/01/25 23:57 Potassium 3.7 mmol/L (3.5-5.1) 05/01/25 23:57 Chloride 105 mmol/L (98-107) 05/01/25 23:57 Carbon Dioxide 22 mmol/L (21-32) 05/01/25 23:57 Anion Gap 8 (3-11) 05/01/25 23:57 BUN 8 mg/dl (6-23) 05/01/25 23:57 Creatinine 0.97 mg/dl (0.6-1.4) 05/01/25 23:57 Est Cr Clr Drug Dosing 65.4 ml/min 05/01/25 23:57 eGFR 79.41 05/01/25 23:57 BUN/Creatinine Ratio 8.2 (10-20) L 05/01/25 23:57 Glucose 44 mg/dl (70-99(Fasting)) L* 05/01/25 23:57 POC Glucose 36 mg/dl (70-99) L* 05/02/25 01:05 Lactate 3.4 mmol/L (0.4-2.0) H* 05/02/25 00:35 Calcium 9.7 mg/dl (8.6-10.3) 05/01/25 23:57 Total Bilirubin 0.5 mg/dl (0.2-1.0) 05/01/25 23:57 AST 19 U/L (13-39) 05/01/25 23:57 ALT 16 U/L (7-52) 05/01/25 23:57 Alkaline Phosphatase 97 U/L (34-104) 05/01/25 23:57 Total Protein 6.4 gm/dl (6.0-8.3) 05/01/25 23:57 Albumin 3.6 gm/dl (3.4-5.0) 05/01/25 23:57 Globulin 2.8 gm/dl (2.5-4.0) 05/01/25 23:57 Albumin/Globulin Ratio 1.3 (0.9-2) 05/01/25 23:57 Lipase 76 U/L (11-82) 05/01/25 23:57 Blood Type A Positive 05/01/25 23:53 Antibody Screen NEGATIVE 05/01/25 23:53 (1) GI (gastrointestinal bleed) GI bleed type/associated pathology: unspecified gastrointestinal hemorrhage type Qualified Code(s): K92.2 - Gastrointestinal hemorrhage, unspecified
[2025-05-02] MEDS: LACTATED RINGER'S 1,000 ML IV STA (01:40)
[2025-05-02] MEDS ORDERED: ACETAMINOPHEN 325 MG TAB PO PRN (02:21)
[2025-05-02] MEDS ORDERED: PROMETHAZINE 6.25 MG/50.25 ML BAG IV PRN (02:21)
[2025-05-02] MEDS ORDERED: GLUCOSE 40% GEL 15 GM TUBE PO PRN (03:08)
[2025-05-02] MEDS ORDERED: GLUCAGON FOR INJ 1 MG VIAL SQ PRN (03:08)
[2025-05-02] MEDS ORDERED: GLUCOSE 10 TAB/TUBE PO PRN (03:08)
[2025-05-02] MEDS: DEXTROSE 50% 50 ML SYRINGE IV PRN (03:38)
[2025-05-02] MEDS: INSULIN ASPART PER UNIT CHARGE SC SCH (03:38)
[2025-05-02] MEDS: CARBOHYDRATES FOR HYPOGLYCEMIA PO PRN (03:39)
[2025-05-02 03:54] LABS: Hematocrit (blood only) 26.8 % (42.0-52.0); Hemoglobin 8.9 g/dl (14.0-18.0)
[2025-05-02] MEDS: D5W AND LACTATED RINGERS 1,000 ML IV ONE (04:08)
[2025-05-02 04:23] LABS: Appearance Urine Clear (Clear); Glucose Urine UA Negative (Negative)
[2025-05-02 06:42] LABS: Cdiff Toxin B Gene (2yr or >) Negative Cdiff Gene (Neg)
[2025-05-02 07:13] LABS: Adenovirus F 40/41 PCR Not Detected (NotDetected); Campylobacter PCR Not Detected (NotDetected); Enteroaggregative E.coli(EAEC) Not Detected (NotDetected); Shiga-like Toxin E.coli (STEC) Not Detected (NotDetected); Vibrio species PCR Not Detected (NotDetected)
[2025-05-02 08:20] LABS: Hematocrit (blood only) 30.6 % (42.0-52.0); Hemoglobin 9.9 g/dl (14.0-18.0); Immature Granulocytes # (auto) 0.02 K/uL (0.01-0.20); Immature Granulocytes % (auto) 0.3 %; Mean Corpuscular Hemoglobin 29.5 pg (25.0-34.0); Mean Corpuscular Volume 91.1 fL (80.0-100.0); Platelet Count 279 K/uL (130-400); RDW Standard Deviation 54.6 fL (36.4-46.3); Red Blood Count 3.36 M/uL (4.70-6.10); White Blood Count 7.34 K/ul (4.8-10.8)
[2025-05-02 08:37] LABS: Anion Gap 6.0 (3-11); Blood Urea Nitrogen 6.0 mg/dl (6-23); Calcium 9.3 mg/dl (8.6-10.3); Carbon Dioxide 24.0 mmol/L (21-32); Chloride 109.0 mmol/L (98-107); Creatinine Clr Calc Pharmacy 64.4 ml/min; Glucose 58.0 mg/dl (70-99(Fasting)); Potassium 4.2 mmol/L (3.5-5.1); Sodium 139.0 mmol/L (136-145)
[2025-05-02] MEDS: LINEZOLID 600 MG TAB PO SCH (09:37)
[2025-05-02] MEDS: SUCRALFATE 1 GM/10 ML UDC PO SCH (09:38)
[2025-05-02] MEDS: AZITHROMYCIN 250 MG TAB PO SCH (11:40)
--- NOTE | 2025-05-02 13:16 | Hospitalist Progress Note ---
Date of Service May 02, 2025 Assessment & Plan (1) Enteritis, enterotoxigenic E. coli: (2) Hypoglycemia associated with type 2 diabetes mellitus: (3) Severe aortic stenosis: (4) Schizoaffective disorder: (5) Hypothyroidism: Plan Patient 79-year-old gentleman who presents with enteritis, proven to be E. coli. No evidence of hemorrhagic colitis however did have some positive bloody stools. Hemoglobin is remained stable Due to patient's overall medical condition and severe symptoms we will treat with azithromycin Monitor electrolytes and renal function Patient has been hypoglycemic with this event, hold all diabetes medications, patient currently on D5, titrate off as his sugars stabilize. Anticipate may not need any significant treatment for his diabetes moving forward Complete course of Zyvox for gram-positive bacteremia that was present on admission Continue other supportive measures Anticipate discharge when stools are manageable and glucoses stable. Admission and Anticipated Discharge Date Admission Date: May 02, 2025 Subjective Patient continues with loose stools. He reports very little blood being seen in the stool. No real abdominal pain. Continues with some hypoglycemia Physical Exam Physical Exam: Constitutional: Alert, nontoxic HEENT: Mucous membranes moist. Lungs: Clear to auscultation, decreased, no wheezes rales or rhonchi CV: S1-S2, regular Abdomen: Soft, nontender, nondistended Extremities: No significant edema Neuro: No focal deficits, glossal/oral smacking Psych: Cooperative, normal mood Results & Data Results & Data Vital Signs (Past 12 Hours) Vital Signs Temp Pulse Pulse Resp BP BP Pulse Ox 05/02/25 11:34 36.8 C 86 16 128/71 98 05/02/25 08:24 36.4 C L 81 16 131/74 99 05/02/25 04:59 05/02/25 03:27 36.4 C L 84 18 109/68 96 05/02/25 03:08 05/02/25 03:05 83 05/02/25 02:41 05/02/25 02:30 89/60 L 05/02/25 02:18 79 16 05/02/25 02:03 83 16 99 05/02/25 02:00 101/61 05/02/25 01:30 128/60 05/02/25 01:18 86 100 Pulse Ox O2 Del Method O2 Del Method 05/02/25 11:34 Room Air 05/02/25 08:24 Room Air 05/02/25 04:59 Room Air 05/02/25 03:27 Room Air 05/02/25 03:08 96 Room Air 05/02/25 03:05 05/02/25 02:41 Room Air 05/02/25 02:30 05/02/25 02:18 05/02/25 02:03 Room Air 05/02/25 02:00 05/02/25 01:30 05/02/25 01:18 Room Air Diagnostic Findings Reviewed imaging, laboratory and diagnostic studies. Pertinent findings as below. Lactic improved 2.6 Glucose remaining low despite D5, improved as he is eating Other electrolytes stable Hemoglobin 9.9 overall appears stable when reviewing his previous hemoglobins Stool studies show ETEC
[2025-05-02] MEDS: ATORVASTATIN 40 MG TAB PO SCH (22:32)
[2025-05-02] MEDS: LEVOTHYROXINE SODIUM 50 MCG TABLET PO SCH (22:32)
[2025-05-03 07:06] LABS: Hematocrit (blood only) 30.8 % (42.0-52.0); Hemoglobin 9.9 g/dl (14.0-18.0); Mean Corpuscular Hemoglobin 28.9 pg (25.0-34.0); Mean Corpuscular Volume 89.8 fL (80.0-100.0); Platelet Count 243 K/uL (130-400); RDW Standard Deviation 53.4 fL (36.4-46.3); Red Blood Count 3.43 M/uL (4.70-6.10); White Blood Count 4.01 K/ul (4.8-10.8)
[2025-05-03 07:26] LABS: Anion Gap 6.0 (3-11); Calcium 9.2 mg/dl (8.6-10.3); Carbon Dioxide 24.0 mmol/L (21-32); Chloride 106.0 mmol/L (98-107); Magnesium 1.7 mg/dl (1.7-2.4); Potassium 3.7 mmol/L (3.5-5.1); Sodium 136.0 mmol/L (136-145)
[2025-05-03 07:32] LABS: Blood Urea Nitrogen 6.0 mg/dl (6-23); Creatinine Clr Calc Pharmacy 72.7 ml/min; Glucose 88.0 mg/dl (70-99(Fasting))
--- NOTE | 2025-05-03 13:45 | Hospitalist Progress Note ---
Date of Service May 03, 2025 Assessment & Plan (1) Enteritis, enterotoxigenic E. coli: Plan: Presented with diarrhea and also painless lower GI bleeding Noted to have enterotoxigenic E. coli in his stool He has been put on azithromycin Diarrhea seems to be better and does not have any more bleeding Recent history of bacteremia secondary to micrococcus luteus Has been on oral Zyvox and the course will be finished today Recent confinement April 16 to 2024 for syncope attributed to hypoglycemia and orthostatic hypotension. EGD showed nonbleeding gastric ulcer/gastritis with erosions and erythema/nonbleeding duodenal ulcer without stigmata of bleeding. Patient discharged on Protonix and sucralfate Rx. Plavix resumed on discharge. Plavix has been on hold since admission and will be restarted on discharge (2) Hypoglycemia associated with type 2 diabetes mellitus: Plan: Patient has been hypoglycemic with this event, hold all diabetes medications, patient currently on D5, titrate off as his sugars stabilize. Anticipate may not need any significant treatment for his diabetes moving forward No more episodes of hypoglycemia (3) Severe aortic stenosis: Plan: Remains free from any symptoms (4) Schizoaffective disorder: (5) Hypothyroidism: Plan: continue replacement Plan Patient 79-year-old gentleman who presents with enteritis, proven to be E. coli. No evidence of hemorrhagic colitis however did have some positive bloody stools. Hemoglobin is remained stable Due to patient's overall medical condition and severe symptoms we will treat with azithromycin Monitor electrolytes and renal function Patient has been hypoglycemic with this event, hold all diabetes medications, patient currently on D5, titrate off as his sugars stabilize. Anticipate may not need any significant treatment for his diabetes moving forward Complete course of Zyvox for gram-positive bacteremia that was present on admission Continue other supportive measures Anticipate discharge when stools are manageable and glucoses stable. Admission and Anticipated Discharge Date Admission Date: May 02, 2025 Subjective 05/03/2025 The patient was seen and examined in medical telemetry unit He has been feeling much better and did not have any more diarrhea since last night Denies any more bleeding per rectum and no hematemesis and no melena Denies any other significant symptoms Review of Systems Review of Systems: All systems reviewed and are unremarkable except as noted below Physical Exam Physical Exam: Lying in bed without any acute distress Constitutional: well developed and well nourished; not ill appearing Eyes: PERRL, conjunctivae normal, anicteric sclerae ENMT: external ear and nose normal, oropharynx normal Neck: trachea midline, no thyromegaly Respiratory: no respiratory distress Auscultation: lungs clear to auscultation bilaterally Cardiovascular: Rate/Rhythm: regular rate and regular rhythm; not tachycardic Heart Sounds: normal S1, normal S2 and + murmur Extremities: no edema Gastrointestinal (Abdomen): Inspection/Auscultation: normal bowel sounds; abdomen not distended Percussion/Palpation: abdomen soft; abdomen nontender Musculoskeletal: No acute arthritis involving any of the joint Neurologic: normal touch/pain/proprioception and moves all extremities; no focal motor deficits Lymphatic: no cervical or axillary lymphadenopathy Results & Data Results & Data Vital Signs (Past 12 Hours) Vital Signs Temp Pulse Resp BP Pulse Ox O2 Del Method 05/03/25 07:31 36.6 C 70 16 126/72 96 Room Air Laboratory Results Short CBC 05/03/25 Range/Units 06:43 WBC 4.01 L (4.8-10.8) K/ul Hgb 9.9 L (14.0-18.0) g/dl Hct 30.8 L (42.0-52.0) % Plt Count 243 (130-400) K/uL BMP 05/03/25 06:43 Sodium 136 Potassium 3.7 Chloride 106 Carbon Dioxide 24 BUN 6 Creatinine 0.77 Glucose 88 Calcium 9.2 Medications Administered Current Inpatient Medications Acetaminophen (Acetaminophen 325 Mg Tab) 650 mg PO QID PRN PRN Reason: pain/fever Stop: 06/01/25 02:20 Atorvastatin Calcium (Atorvastatin 40 Mg Tab) 80 mg PO HS JOSE Stop: 06/01/25 20:59 Last Admin: 05/02/25 22:32 Dose: 80 mg Azithromycin (Azithromycin 250 Mg Tab) 500 mg PO QAM JOSE Stop: 05/12/25 08:59 Last Admin: 05/03/25 11:00 Dose: 500 mg Dextrose (Dextrose 50% 50 Ml Syringe) 25 - 50 ml IV UD PRN; Protocol PRN Reason: Hypoglycemia Protocol Stop: 06/01/25 03:07 Last Admin: 05/02/25 03:38 Dose: 50 ml Glucagon (Glucagon For Inj 1 Mg Vial) 1 mg SQ UD PRN; Protocol PRN Reason: Hypoglycemia Protocol Stop: 06/01/25 03:07 Glucose (Glucose 40% Gel 15 Gm Tube) 15 - 30 gm PO UD PRN; Protocol PRN Reason: Hypoglycemia Protocol Stop: 06/01/25 03:07 Glucose (Glucose 10 Tab/Tube) 4 - 8 tab PO UD PRN; Protocol PRN Reason: Hypoglycemia Protocol Stop: 06/01/25 03:07 Promethazine HCl (Phenergan) 6.25 mg in 50.25 mls @ 201 mls/hr IV Q6H PRN PRN Reason: Nausea And Vomiting Stop: 06/01/25 02:20 Levothyroxine Sodium (Levothyroxine Sodium 50 Mcg Tablet) 50 mcg PO HS JOSE Stop: 06/01/25 20:59 Last Admin: 05/02/25 22:32 Dose: 50 mcg Linezolid (Linezolid 600 Mg Tab) 600 mg PO BID JOSE Stop: 05/03/25 21:01 Last Admin: 05/03/25 11:00 Dose: 600 mg Miscellaneous (Carbohydrates For Hypoglycemia ) 15 - 30 gm PO UD PRN PRN Reason: Hypoglycemia Protocol Stop: 06/01/25 03:07 Last Admin: 05/02/25 03:39 Dose: 15 gm Pantoprazole Sodium (Pantoprazole 40 Mg Tab) 40 mg PO BID JOSE Stop: 06/01/25 08:59 Last Admin: 05/03/25 11:00 Dose: 40 mg Sucralfate (Sucralfate 1 Gm/10 Ml Udc) 1 gm PO ACHS JOSE Stop: 06/01/25 07:29 Last Admin: 05/03/25 11:00 Dose: 1 gm
[2025-05-04 06:49] LABS: Hematocrit (blood only) 30.7 % (42.0-52.0); Hemoglobin 10.4 g/dl (14.0-18.0); Immature Granulocytes # (auto) 0.01 K/uL (0.01-0.20); Immature Granulocytes % (auto) 0.2 %; Mean Corpuscular Hemoglobin 30.4 pg (25.0-34.0); Mean Corpuscular Volume 89.8 fL (80.0-100.0); Platelet Count 236 K/uL (130-400); RDW Standard Deviation 52.8 fL (36.4-46.3); Red Blood Count 3.42 M/uL (4.70-6.10); White Blood Count 4.10 K/ul (4.8-10.8)
[2025-05-04 07:37] LABS: Anion Gap 6.0 (3-11); Blood Urea Nitrogen 5.0 mg/dl (6-23); Calcium 9.2 mg/dl (8.6-10.3); Carbon Dioxide 25.0 mmol/L (21-32); Chloride 105.0 mmol/L (98-107); Creatinine Clr Calc Pharmacy 75.7 ml/min; Glucose 87.0 mg/dl (70-99(Fasting)); Potassium 3.6 mmol/L (3.5-5.1); Sodium 136.0 mmol/L (136-145)
[2025-05-04 08:12] VITALS: RESP 16; TEMP 98.2; O2SAT 96
--- NOTE | 2025-05-04 12:29 | Hospitalist Progress Note ---
Date of Service May 04, 2025 Assessment & Plan (1) Enteritis, enterotoxigenic E. coli: Plan: Presented with diarrhea and also painless lower GI bleeding Noted to have enterotoxigenic E. coli in his stool He has been put on azithromycin Diarrhea seems to be better and does not have any more bleeding Diarrhea has stopped and will finish the 3-day course of azithromycin today He remains free from any symptoms and will be discharged this afternoon Recent history of bacteremia secondary to micrococcus luteus Has been on oral Zyvox and the course will be finished today Zyvox is finished Recent confinement April 16 to 2024 for syncope attributed to hypoglycemia and orthostatic hypotension. EGD showed nonbleeding gastric ulcer/gastritis with erosions and erythema/nonbleeding duodenal ulcer without stigmata of bleeding. Patient discharged on Protonix and sucralfate Rx. Plavix resumed on discharge. Plavix has been on hold since admission and will be restarted on discharge Will resume his outpatient medications as before (2) Hypoglycemia associated with type 2 diabetes mellitus: Plan: Patient has been hypoglycemic with this event, hold all diabetes medications, patient currently on D5, titrate off as his sugars stabilize. Anticipate may not need any significant treatment for his diabetes moving forward No more episodes of hypoglycemia Will discontinue his glipizide on discharge (3) Severe aortic stenosis: Plan: Remains free from any symptoms (4) Schizoaffective disorder: (5) Hypothyroidism: Plan: continue replacement Plan Patient 79-year-old gentleman who presents with enteritis, proven to be E. coli. No evidence of hemorrhagic colitis however did have some positive bloody stools. Hemoglobin is remained stable Due to patient's overall medical condition and severe symptoms we will treat with azithromycin Monitor electrolytes and renal function Patient has been hypoglycemic with this event, hold all diabetes medications, patient currently on D5, titrate off as his sugars stabilize. Anticipate may not need any significant treatment for his diabetes moving forward Complete course of Zyvox for gram-positive bacteremia that was present on admission Continue other supportive measures Anticipate discharge when stools are manageable and glucoses stable. Admission and Anticipated Discharge Date Admission Date: May 02, 2025 Subjective 05/03/2025 The patient was seen and examined in medical telemetry unit He has been feeling much better and did not have any more diarrhea since last night Denies any more bleeding per rectum and no hematemesis and no melena Denies any other significant symptoms 05/04/2025 The patient was seen and examined in medical telemetry unit He has been feeling much better and denies any significant symptoms His diarrhea has stopped and there is no cough and no shortness of breath or any abdominal pain He will be discharged this afternoon Review of Systems Review of Systems: All systems reviewed and are unremarkable except as noted below Physical Exam Physical Exam: Lying in bed without any acute distress Constitutional: well developed and well nourished; not ill appearing Eyes: PERRL, conjunctivae normal, anicteric sclerae ENMT: external ear and nose normal, oropharynx normal Neck: trachea midline, no thyromegaly Respiratory: no respiratory distress Auscultation: lungs clear to auscultation bilaterally Cardiovascular: Rate/Rhythm: regular rate and regular rhythm; not tachycardic Heart Sounds: normal S1, normal S2 and + murmur Extremities: no edema Gastrointestinal (Abdomen): Inspection/Auscultation: normal bowel sounds; abdomen not distended Percussion/Palpation: abdomen soft; abdomen nontender Neurologic: normal touch/pain/proprioception and moves all extremities; no focal motor deficits Lymphatic: no cervical or axillary lymphadenopathy Results & Data Results & Data Vital Signs (Past 12 Hours) Vital Signs Temp Pulse Resp BP Pulse Ox O2 Del Method 05/04/25 08:11 36.8 C 85 16 184/78 H 96 Room Air Laboratory Results Short CBC 05/04/25 Range/Units 05:56 WBC 4.10 L (4.8-10.8) K/ul Hgb 10.4 L (14.0-18.0) g/dl Hct 30.7 L (42.0-52.0) % Plt Count 236 (130-400) K/uL BMP 05/04/25 05:56 Sodium 136 Potassium 3.6 Chloride 105 Carbon Dioxide 25 BUN 5 L Creatinine 0.74 Glucose 87 Calcium 9.2 Medications Administered Current Inpatient Medications Acetaminophen (Acetaminophen 325 Mg Tab) 650 mg PO QID PRN PRN Reason: pain/fever Stop: 06/01/25 02:20 Atorvastatin Calcium (Atorvastatin 40 Mg Tab) 80 mg PO HS JOSE Stop: 06/01/25 20:59 Last Admin: 05/03/25 22:38 Dose: 80 mg Azithromycin (Azithromycin 250 Mg Tab) 500 mg PO QAM JOSE Stop: 05/12/25 08:59 Last Admin: 05/04/25 08:48 Dose: 500 mg Dextrose (Dextrose 50% 50 Ml Syringe) 25 - 50 ml IV UD PRN; Protocol PRN Reason: Hypoglycemia Protocol Stop: 06/01/25 03:07 Last Admin: 05/02/25 03:38 Dose: 50 ml Glucagon (Glucagon For Inj 1 Mg Vial) 1 mg SQ UD PRN; Protocol PRN Reason: Hypoglycemia Protocol Stop: 06/01/25 03:07 Glucose (Glucose 40% Gel 15 Gm Tube) 15 - 30 gm PO UD PRN; Protocol PRN Reason: Hypoglycemia Protocol Stop: 06/01/25 03:07 Glucose (Glucose 10 Tab/Tube) 4 - 8 tab PO UD PRN; Protocol PRN Reason: Hypoglycemia Protocol Stop: 06/01/25 03:07 Promethazine HCl (Phenergan) 6.25 mg in 50.25 mls @ 201 mls/hr IV Q6H PRN PRN Reason: Nausea And Vomiting Stop: 06/01/25 02:20 Levothyroxine Sodium (Levothyroxine Sodium 50 Mcg Tablet) 50 mcg PO HS JOSE Stop: 06/01/25 20:59 Last Admin: 05/03/25 22:38 Dose: 50 mcg Miscellaneous (Carbohydrates For Hypoglycemia ) 15 - 30 gm PO UD PRN PRN Reason: Hypoglycemia Protocol Stop: 06/01/25 03:07 Last Admin: 05/02/25 03:39 Dose: 15 gm Pantoprazole Sodium (Pantoprazole 40 Mg Tab) 40 mg PO BID JOSE Stop: 06/01/25 08:59 Last Admin: 05/04/25 08:48 Dose: 40 mg Sucralfate (Sucralfate 1 Gm/10 Ml Udc) 1 gm PO ACHS JOSE Stop: 06/01/25 07:29 Last Admin: 05/04/25 11:17 Dose: 1 gm Oh
[2025-05-04 13:16] VITALS: BP 120/80; PULSE 81
--- NOTE | 2025-05-04 16:52 | Discharge Summary ---
Date of Service May 04, 2025 Admission HPI Per Admitting Provider History obtained from patient and records. Medical history significant for valvular heart disease (moderate /mild AR), hypertension, hyperlipidemia, PVD, CVA, possible NPH, GERD/PUD, DM2 on oral medications, hypothyroidism, chronic anemia (baseline hemoglobin 8-9), BPH, gram-positive bacteremia currently on Zyvox course, schizoaffective disorder, mood disorder. Two admissions this month at [facility]. Recent confinement April 16 to 2024 for syncope attributed to hypoglycemia and orthostatic hypotension. EGD showed nonbleeding gastric ulcer/gastritis with erosions and erythema/nonbleeding duodenal ulcer without stigmata of bleeding. Patient discharged on Protonix and sucralfate Rx. Plavix resumed on discharge. Patient found to have gram-positive bacteremia (micrococcus luteus and Aerococcus viridans) during confinement. Patient discharged on 2-week Zyvox course as per ID recommendations. 3 days ago, patient noted bloody diarrhea symptoms without abdominal pain. No nausea or emesis. No fever, no chills. Patient denies chest pain, SOB, headache symptoms. Patient brought to the ER for evaluation. Lowest SBP of 80s, BSG 30s documented at the ER. Medical History as above Family History : DM Personal/Social history : Non-smoker, no EtOH intake, jail inmate Admission Exam Per Admitting Provider Physical Exam: GENERAL: Slightly uncomfortable SKIN: Pallor , warm HEENT: Partial alopecia, pale palpebral conjunctivae, no ptosis, dry buccal mucosa, involuntary tongue movements (chronic as per correctional officers) NECK : Supple, no tenderness CHEST : Decreased breath sounds, no tenderness HEART : RRR, systolic murmur ABDOMEN: Some distention, nontender EXTREMITIES : No LE swelling/tenderness, palpable pulses, no other conspicuous deformities noted NEUROLOGIC : Coherent, no facial asymmetry, involuntary tongue movements, gait and stance not assessed Principal Diagnosis Enteritis secondary to enterotoxigenic E. coli, hypoglycemia associated with type 2 diabetes, schizoaffective disorder Discharge Exam Lying in bed without any acute distress Constitutional well developed and well nourished; not ill appearing Eyes PERRL, conjunctivae normal, anicteric sclerae ENMT external ear and nose normal, oropharynx normal Neck trachea midline, no thyromegaly Respiratory no respiratory distress Auscultation: lungs clear to auscultation bilaterally Cardiovascular Rate/Rhythm: regular rate and regular rhythm; not tachycardic Heart Sounds: normal S1, normal S2 and + murmur Extremities: no edema Gastrointestinal (Abdomen) Inspection/Auscultation: normal bowel sounds; abdomen not distended Percussion/Palpation: abdomen soft; abdomen nontender Neurologic normal touch/pain/proprioception and moves all extremities; no focal motor deficits Lymphatic no cervical or axillary lymphadenopathy Discharge Data Allergies Allergy/AdvReac Type Severity Reaction Status Date / Time No Known Allergies Allergy Verified 04/14/25 17:53 Consultations 05/02/25 01:02 ED Decision to Admit Stat Hospital Course (1) Enteritis, enterotoxigenic E. coli: Presented with diarrhea and also painless lower GI bleeding Noted to have enterotoxigenic E. coli in his stool He has been put on azithromycin Diarrhea seems to be better and does not have any more bleeding Diarrhea has stopped and will finish the 3-day course of azithromycin today He remains free from any symptoms and will be discharged this afternoon Recent history of bacteremia secondary to micrococcus luteus Has been on oral Zyvox and the course will be finished today Zyvox is finished Recent confinement April 16 to 2024 for syncope attributed to hypoglycemia and orthostatic hypotension. EGD showed nonbleeding gastric ulcer/gastritis with erosions and erythema/nonbleeding duodenal ulcer without stigmata of bleeding. Patient discharged on Protonix and sucralfate Rx. Plavix resumed on discharge. Plavix has been on hold since admission and will be restarted on discharge Will resume his outpatient medications as before (2) Hypoglycemia associated with type 2 diabetes mellitus: Patient has been hypoglycemic with this event, hold all diabetes medications, patient currently on D5, titrate off as his sugars stabilize. Anticipate may not need any significant treatment for his diabetes moving forward No more episodes of hypoglycemia Will discontinue his glipizide on discharge (3) Severe aortic stenosis: Remains free from any symptoms (4) Schizoaffective disorder: (5) Hypothyroidism: continue replacement Plan Patient 79-year-old gentleman who presents with enteritis, proven to be E. coli. No evidence of hemorrhagic colitis however did have some positive bloody stools. Hemoglobin is remained stable Due to patient's overall medical condition and severe symptoms we will treat with azithromycin Monitor electrolytes and renal function Patient has been hypoglycemic with this event, hold all diabetes medications, patient currently on D5, titrate off as his sugars stabilize. Anticipate may not need any significant treatment for his diabetes moving forward Complete course of Zyvox for gram-positive bacteremia that was present on admission Continue other supportive measures Anticipate discharge when stools are manageable and glucoses stable. Total Time Total Time Spent Total Time Spent (In Minutes): 35 Minutes Discharge Plan Discharge Items [facility] Disposition[facility] Reason For Visit: DIARRHEA Discharge Diagnosis: Enteritis secondary to enterotoxigenic E. coli, hypoglycemia associated with type 2 diabetes, schizoaffective disorder Condition on Discharge: Good Activity: Resume your previous activity Non-emergency contact: Primary Care Provider Call non-emergency contact if: you have any medication questions and your symptoms worsen Follow-up/Referrals: Dora ELLER [Primary Care Provider] - Diet: Carb Consistent or DM2 Addtl Attending Provider Instructions: Please take precautions to avoid falls Your glipizide for diabetes has been discontinued due to hypoglycemia Take your other medications including aspirin and Plavix as advised Pending Studies at Discharge: No Stand-Alone Forms: My [facility] Skilled Items Patient informed of condition?: Yes Discharge Level of Care: Other Communicable Disease: No Discharge Prognosis: Stable Lines: None Urinary Catheter: No Medications and DC Order Prescriptions: Continued aspirin 81 mg Tablet,Delayed Release (Dr/Ec) 81 mg PO HS Hold Instructions: Resume if hemoglobin stable Rx Instructions: on hold calcium carbonate-vitamin D3 600 mg(1,500mg) -400 unit Tablet 2 tab PO HS levothyroxine 50 mcg Tablet 50 mcg PO HS metformin 1,000 mg Tablet 1,000 mg PO HS Hold Instructions: Resume on 04/17/25. atorvastatin 80 mg Tablet 80 mg PO HS sucralfate 100 mg/mL Suspension 1 g PO QID 30 Days Qty: 1200 0RF cholecalciferol (vitamin D3) [Vitamin D3] 25 mcg (1,000 unit) Capsule 50 mcg PO DAILY clopidogrel 75 mg Tablet 75 mg PO QAM 20 Days Qty: 20 0RF omeprazole 20 mg Capsule,Delayed Release(Dr/Ec) 20 mg PO BID Discontinued glipizide 10 mg Tablet 10 mg PO HS linezolid 600 mg tablet 600 mg PO BID 8 Days Qty: 16 0RF Discharge Orders: Discharge Order (Routine); Ordered 05/04/25 Ordered By: Moni Lees Admission Data Admit Date/Time: 05/02/25 13:03 Attending Provider: Moni Lees Admit Provider: Gregory Owusu Primary Care Provider: Dora ELLER Other Providers: Ciro Pathak; Gregory Owusu Other Interventions: Discharge Summary Assessment (RN) Last Done: 05/04/25 13:13
--- NOTE | 2025-05-05 21:24 | Electrocardiogram Report ---
Test Reason : Blood Pressure : */* mmHG Vent. Rate : 103 BPM Atrial Rate : 103 BPM P-R Int : 176 ms QRS Dur : 78 ms QT Int : 318 ms P-R-T Axes : 53 2 68 degrees QTcB Int : 416 ms Sinus tachycardia Cannot rule out Anteroseptal infarct (cited on or before 26-Jan-2025) Nonspecific ST abnormality Abnormal ECG When compared with ECG of 16-Apr-2025 18:06, No significant change was found Confirmed by Kedar Mc ([id number]) on 05/05/2025 9:23:55 PM Referred By: [facility] Confirmed By: Kedar Mc
== END 2025-05-04 15:00 | DRG 372 ==
LOC: 2W 23:37 → ED 23:37 → SUATTDRO 05-02 01:28 → 2W 05-02 02:41 → SUATTDRO 05-02 13:03